=== PATIENT | female | born 1985 | race Caucasian/White ===

== ENCOUNTER 2016-07-20 11:17 | Emergency (ER) | payer MEDICAID ==
[2016-07-20] MEDS ORDERED: ONDANSETRON HCL INJ/PF 4 MG/2 ML SDV IV ONE (11:21)
[2016-07-20] MEDS ORDERED: MORPHINE SULFATE 10 MG/ML INJ IV ONE (11:21)
--- NOTE | 2016-07-20 11:25 | ER Document Report ---
ED Medical Screen (RME) - General Stated Complaint: ABDOMINAL PAIN Mode of Arrival: Wheelchair Information source: Patient Notes: pt reports RLQ abdominal pain since last night. Reports increased all night, denies vomiting /diarrhea. Last meal last night, drank water today. No fever. Very tender RLQ. Hurts when taking a deep breath. Hx of ovarian cyst. Reports some pain when she voids. Still has gallbladder and appendix. So reports rectal pressure. I have greeted and performed a rapid initial assessment of this patient. A comprehensive ED assessment and evaluation of the patient, analysis of test results and completion of the medical decision making process will be conducted by additional ED providers. TRAVEL OUTSIDE OF THE [place] IN LAST 30 DAYS: No - Related Data Allergies/Adverse Reactions: No Known Allergies Allergy (Verified 07/20/16 11:19) Past Medical History - Past Medical History Cardiac Medical History: Reports: Hx Heart Murmur Neurological Medical History: Reports: Hx Migraine - Immunizations Hx Diphtheria, Pertussis, Tetanus Vaccination: Yes
--- NOTE | 2016-07-20 11:38 | ER Document Report ---
ED GI/ - General Chief Complaint: Abdominal Pain Stated Complaint: ABDOMINAL PAIN Mode of Arrival: Wheelchair Notes: The patient is a 31-year-old female, past medical history ovarian cysts, presents with onset of right lower quadrant abdominal pain and right upper abdominal pain. She has never had this pain in the past. The pain is constant and described as sharp. She denies nausea, vomiting, urinary symptoms, fevers, diarrhea, constipation or vaginal discharge. TRAVEL OUTSIDE OF THE [place] IN LAST 30 DAYS: No - Related Data Allergies/Adverse Reactions: No Known Allergies Allergy (Verified 07/20/16 11:19) Past Medical History - General Information source: Patient - Social History Smoking Status: Current Every Day Smoker Chew tobacco use (# tins/day): No Frequency of alcohol use: None Drug Abuse: None Family History: Other - Grandmother: ulcers Patient has suicidal ideation: No Patient has homicidal ideation: No - Past Medical History Cardiac Medical History: Reports: Hx Heart Murmur Neurological Medical History: Reports: Hx Migraine Renal/ Medical History: Denies: Hx Peritoneal Dialysis - Immunizations Hx Diphtheria, Pertussis, Tetanus Vaccination: Yes Review of Systems - Review of Systems Notes: REVIEW OF SYSTEMS: CONSTITUTIONAL: -fevers, -chills EENT: -eye pain, -difficulty swallowing, -nasal congestion CARDIOVASCULAR:-chest pain, -syncope. RESPIRATORY: -cough, -SOB GASTROINTESTINAL: +abdominal pain, -nausea, -vomiting, -diarrhea GENITOURINARY: -dysuria, -hematuria MUSCULOSKELETAL: -back pain, -neck pain SKIN: -rash or skin lesions. HEMATOLOGIC: -easy bruising or bleeding. LYMPHATIC: -swollen, enlarged glands. NEUROLOGICAL: -altered mental status or loss of consciousness, -headache, - neurologic symptoms PSYCHIATRIC: -anxiety, -depression. ALL OTHER SYSTEMS REVIEWED AND NEGATIVE. Physical Exam - Vital signs Vitals: Resp Pulse Ox 25 H 100 07/20/16 11:56 07/20/16 11:56 - Notes Notes: PHYSICAL EXAMINATION: GENERAL: In moderate distress. HEAD: Atraumatic, normocephalic. EYES: Pupils equal round and reactive to light, extraocular movements intact, sclera anicteric, conjunctiva are normal. ENT: nares patent, oropharynx clear without exudates. Moist mucous membranes. NECK: Normal range of motion, supple without lymphadenopathy LUNGS: Breath sounds clear to auscultation bilaterally and equal. No wheezes rales or rhonchi. HEART: Regular rate and rhythm without murmurs ABDOMEN: Tenderness over RUQ and RLQ, +Cook's sign, +guarding : No vaginal discharge. No CMT. Nontender left and right adnexa and uterus. Tenderness above right adnexa. EXTREMITIES: Normal range of motion, no pitting or edema. No cyanosis. NEUROLOGICAL: Cranial nerves grossly intact. Normal speech, normal gait. Normal sensory, motor, and reflex exams. PSYCH: Normal mood, normal affect. SKIN: Warm, Dry, normal turgor, no rashes or lesions noted. Course - Re-evaluation Re-evalutation: Patient with tenderness and guarding over right upper quadrant and right lower quadrant. Will obtain ultrasound of gallbladder and right adnexa reason to assess for cholecystitis and ovarian torsion. If the ultrasounds are negative, will obtain CT to assess for appendicitis. 07/20/16 15:45 Pt with hemoperitoneum on CT scan, but normal appendix. Spoke to on-call Extractor Plant Operator (Dr. Lopez Martínez) and he says that this can be normal after ruptured hemorrhagic ovarian cyst. Since patient's blood pressure has remained stable, she is not tachycardic, and she is not , he says that patient is safe for discharge and outpatient follow-up with gynecology. Spoke to patient and mom about this and she is comfortable with plan. Given strict return precautions and she understands. - Vital Signs Vital signs: Temp Pulse Resp BP Pulse Ox 98.4 F 16 125/93 H 100 07/20/16 16:00 07/20/16 16:01 07/20/16 16:00 07/20/16 16:01 - Laboratory Result Diagrams: 07/20/16 13:51 07/20/16 12:15 Laboratory results interpreted by me: 07/20/16 07/20/16 12:15 13:51 WBC 14.7 H Absolute Neutrophils 9.6 H Calcium 10.3 H - Diagnostic Test Radiology reviewed: Image reviewed, Reports reviewed Radiology results interpreted by me: RUPantera US: IMPRESSION: FATTY INFILTRATION OF THE LIVER. OTHERWISE NORMAL RIGHT UPPER QUADRANT ULTRASOUND. Pelvic US: IMPRESSION: 1. Slightly prominent heterogeneous right ovary but no clear evidence of mass or torsion. Indeterminate etiology. Normal uterus and left ovary. Fluid in the pelvis as above. CT A/P: IMPRESSION: 1. Dense fluid in the bilateral lower pericolic gutters and pelvis. Likely hemoperitoneum. Reportedly, the patient has a negative test, and therefore ectopic ( normal a consideration in such cases) should not be responsible for the findings. This could still be related to hemorrhage from rupture of an ovarian cyst recently. Comparison pelvic ultrasound shows some enlargement of the right ovary but no worrisome mass. 2. No evidence of appendicitis, see above. Discharge - Discharge Clinical Impression: Ruptured ovarian cyst, Hemoperitoneum Condition: Good Disposition: HOME, SELF-CARE Additional Instructions: If you notice any worsening abdominal pain, feel lightheaded or have any other concerns, return immediately to the emergency room. You must follow-up with the irrigation equipment remover MIRIAM. Call for an appointment tomorrow. Take Motrin every 6 hours. Neon for severe pain. Do not drive while you are taking Neon. Eat a high-fiber diet and add a stool softener to help have normal bowel movements. Ovarian Cyst Your examination shows the presence of an ovarian cyst. This is a ball of fluid attached to the ovary. Ovarian cysts in women of child-bearing age are usually innocent. However, the cyst may cause pain when it grows or bursts. An innocent ovarian cyst will usually go away by itself. When the cyst becomes painful, you should rest. Pain medication may be required. Some women find a hot water bottle soothing. The pain usually resolves within one or two days. After menopause, an ovarian cyst may mean a tumor, and requires more aggressive evaluation -- usually surgery is recommended to remove or biopsy the cyst. A very large cyst requires evaluation at any age. Most cysts (even the innocent ones) require follow-up examination. Call the doctor or return at any time if the pain increases significantly, if you become faint, or if you experience vaginal bleeding. Prescriptions: Hydrocodone/Acetaminophen [Neon 5-325 mg Tablet] 1 tab PO Q6H PRN #12 tablet PRN Reason: Referrals: FARRUKH CHUNG DO [Primary Care Provider] - Follow up as needed DOUG MARTÍNEZ MD [ACTIVE STAFF] - Follow up as needed
[2016-07-20 12:47] LABS: ALANINE AMINOTRANSFERASE 30 U/L (9-52); ALBUMIN 4.4 g/dL (3.5-5.0); ALKALINE PHOSPHATASE 65 U/L (38-126); ANION GAP 12 (5-19); ASPARTATE AMINO TRANSFERASE 23 U/L (14-36); BILIRUBIN,TOTAL 0.5 mg/dL (0.2-1.3); BLOOD UREA NITROGEN 13 mg/dL (7-20); CALCIUM 10.3 mg/dL (8.4-10.2); CARBON DIOXIDE 23 mmol/L (22-30); CHLORIDE 105 mmol/L (98-107); CREATININE RESULT 0.81 mg/dL (0.52-1.25); GLUCOSE 86 mg/dL (75-110); LIPASE 76.2 U/L (23-300); POTASSIUM 4.8 mmol/L (3.6-5.0); SODIUM 140.2 mmol/L (137-145); TOTAL PROTEIN 7.6 g/dL (6.3-8.2)
[2016-07-20 12:51] LABS: APPEARANCE,URINE CLEAR; BILIRUBIN,URINE NEGATIVE (NEGATIVE); GLUCOSE, URINE NEGATIVE (NEGATIVE); KETONES,URINE NEGATIVE (NEGATIVE); LEUKOCYTE ESTERASE,URINE NEGATIVE (NEGATIVE); NITRITE,URINE NEGATIVE (NEGATIVE); PROTEIN,URINE NEGATIVE (NEGATIVE); URINE SPECIFIC GRAVITY 1.008; UROBILINOGEN,URINE NEGATIVE mg/dL (<2.0)
[2016-07-20] MEDS ORDERED: MORPHINE SULFATE 10 MG/ML INJ IM ONE ×2 (13:08)
[2016-07-20] MEDS ORDERED: ONDANSETRON 4 MG TAB.RAPDIS PO ONE (13:10)
[2016-07-20 14:00] LABS: ABSOLUTE BASOPHILS # (AUTO) 0.1 10^3/uL (0.0-0.2); ABSOLUTE EOSINOPHILS # (AUTO) 0.2 10^3/uL (0.0-0.6); ABSOLUTE LYMPHOCYTES (AUTO) 3.9 10^3/uL (0.5-4.7); ABSOLUTE MONOCYTES (AUTO) 0.9 10^3/uL (0.1-1.4); ABSOLUTE NEUT (AUTO) 9.6 10^3/uL (1.7-8.2); BASOPHILS % (AUTO) 0.8 % (0-2); EOSINOPHILS % (AUTO) 1.1 % (0-6); HEMATOCRIT 38.7 % (36.0-47.0); HEMOGLOBIN 13.2 g/dL (12.0-15.5); HGB HCT DIFFERENCE 0.9; LYMPHOCYTES % (AUTO) 26.7 % (13-45); MEAN CORPUSCULAR HEMOGLOBIN 30.2 pg (27.0-33.4); MEAN CORPUSCULAR VOLUME 89 fl (80-97); MONOCYTES % (AUTO) 6.1 % (3-13); RED BLOOD COUNT 4.37 10^6/uL (3.72-5.28); RED CELL DISTRIBUTION WIDTH 13.3 % (11.5-14.0); SEGMENTED NEUTROPHILS % (AUTO) 65.3 % (42-78); WHITE BLOOD COUNT 14.7 10^3/uL (4.0-10.5)
[2016-07-20] MEDS ORDERED: HYDROCODONE/ACETAMINOPHEN 5-325 MG TABLET PO ONE (15:44)
[2016-07-20] MEDS ORDERED: IBUPROFEN 600 MG TABLET PO ONE (15:44)
[2016-07-20 15:51] LABS: CHLAM PCR NOT DETECTED (NOT DETECT)
[2016-07-20 16:13] VITALS: BP 125/93
== END 2016-07-20 16:14 | disposition home or self-care (01) ==
LOC: ER 11:17
DX: N83.201 Unspecified ovarian cyst, right side (principal); K66.1 Hemoperitoneum; R10.32 Left lower quadrant pain; F17.200 Nicotine dependence, unspecified, uncomplicated
CPT/HCPCS: 99284; 96372; 36415; 87086; 87210; 83690; 84703; 85025; 81025; 80053; 81001; 87491; 87591; 76705; 76830; 93976; 74150; S0119; J3490; J2270

== ENCOUNTER 2016-09-26 19:43 | Emergency (ER) | payer MEDICAID ==
[2016-09-26] MEDS ORDERED: MAGNESIUM SULFATE/D5W 100 ML IV PRN (21:12)
[2016-09-26] MEDS ORDERED: METHYLPREDNISOLONE INJ 125 MG/2 ML SDV IV ONE (21:12)
[2016-09-26] MEDS ORDERED: IPRATROPIUM/ALBUTEROL 0.5-2.5 MG/3 ML AMPUL NEB ONE ×2 (21:13)
[2016-09-26] MEDS ORDERED: HYDROCODONE/ACETAMINOPHEN 5-325 MG TABLET PO ONE (21:14)
[2016-09-26] MEDS ORDERED: NORMAL SALINE 1000 ML 1,000 ML IV ONE (21:14)
--- NOTE | 2016-09-26 21:16 | ER Document Report ---
ED Respiratory Problem - General Chief Complaint: Cough Stated Complaint: COUGH Time Seen by Provider: 09/26/16 21:06 Notes: Patient is a 31-year-old female smoker that comes emergency department for chief complaint of one week of worsening upper respiratory symptoms, she states she has developed a congested cough and now has difficulty breathing with wheezing. She was referred to the emergency department by urgent care after she had 2 albuterol treatments and was still wheezing on examination reportedly. Patient denies fever, reports some chills. She denies history of asthma, COPD, she denies any daily medications. TRAVEL OUTSIDE OF THE [place] IN LAST 30 DAYS: No - Related Data Allergies/Adverse Reactions: No Known Allergies Allergy (Verified 09/17/16 13:28) Past Medical History - General Information source: Patient - Social History Smoking Status: Current Every Day Smoker Smoking Education Provided: Yes - <3 min Frequency of alcohol use: None Drug Abuse: None Lives with: Family Family History: Reviewed & Not Pertinent, Other - Grandmother: ulcers Patient has suicidal ideation: No Patient has homicidal ideation: No - Past Medical History Cardiac Medical History: Reports: Hx Heart Murmur Denies: Hx Coronary Artery Disease, Hx Heart Attack, Hx Hypertension Pulmonary Medical History: Denies: Hx Asthma, Hx Bronchitis, Hx COPD, Hx Pneumonia Neurological Medical History: Reports: Hx Migraine. Denies: Hx Cerebrovascular Accident, Hx Seizures Renal/ Medical History: Denies: Hx Peritoneal Dialysis Musculoskeltal Medical History: Denies Hx Arthritis Surgical Hx: Negative - Immunizations Hx Diphtheria, Pertussis, Tetanus Vaccination: Yes Review of Systems - Review of Systems Constitutional: No symptoms reported EENT: See HPI Cardiovascular: No symptoms reported Respiratory: See HPI Gastrointestinal: No symptoms reported Genitourinary: No symptoms reported Female Genitourinary: No symptoms reported Musculoskeletal: No symptoms reported Skin: No symptoms reported Hematologic/Lymphatic: No symptoms reported Neurological/Psychological: No symptoms reported Physical Exam - Vital signs Vitals: Temp Pulse Resp BP Pulse Ox 98.1 F 113 H 20 134/70 H 98 09/26/16 19:51 09/26/16 19:51 09/26/16 19:51 09/26/16 19:51 09/26/16 19:51 Interpretation: Normal - General General appearance: Anxious In distress: None - HEENT Head: Normocephalic, Atraumatic Eyes: Normal Conjunctiva: Normal Extraocular movements intact: Yes Eyelashes: Normal Pupils: PERRL Ears: Normal External canal: Normal Tympanic membrane: Other - Purulent effusion noted with examination of the left TM, serous effusion noted with the right TM, otherwise unremarkable Sinus: Normal Nasal: Normal Mouth/Lips: Normal Mucous membranes: Normal Pharynx: Normal Neck: Normal - Respiratory Respiratory status: No respiratory distress, Tachypnea - Borderline Chest status: Nontender Breath sounds: Decreased air movement, Nonproductive cough, Rhonchi, Wheezing - Cardiovascular Rhythm: Regular, Tachycardia Heart sounds: Normal auscultation, S1 appreciated, S2 appreciated Murmur: No - Abdominal Inspection: Normal Distension: No distension Bowel sounds: Normal Tenderness: Nontender. No: Tender, Guarding Organomegaly: No organomegaly - Back Back: Normal, Nontender - Extremities General upper extremity: Normal inspection, Nontender, Normal color, Normal ROM , Normal temperature General lower extremity: Normal inspection, Nontender, Normal color, Normal ROM , Normal temperature, Normal weight bearing. No: Lorrie's sign - Neurological Neuro grossly intact: Yes Cognition: Normal Orientation: AAOx4 [place] Coma Scale Eye Opening: Spontaneous Heri Coma Scale Verbal: Oriented [place] Coma Scale Motor: Obeys Commands Heri Coma Scale Total: 15 Speech: Normal Motor strength normal: LUE, RUE, LLE, RLE Sensory: Normal - Psychological Associated symptoms: Anxious - Skin Skin Temperature: Warm Skin Moisture: Dry Skin Color: Normal Course - Re-evaluation Re-evalutation: On examination patient has expiratory wheezes and rhonchi throughout all lung atkins, mild tachypnea but no hypoxia, she can complete sentences, she appears slightly anxious but does not appear to be in distress. Mild leukocytosis with no shift, chest x-ray does not show pneumonia, no acidosis on chemistry 09/27/16 After magnesium, Solu-Medrol, IV fluids, [place], patient significantly improved, wheezing resolved, still has some congestion/cough. Patient states she feels much better. On examination patient also has an ear infection in the left middle ear, we will treat with amoxicillin. Provided with inhaler, prednisone, amoxicillin, [place], discussed smoking cessation, patient states that after this she plans to never smoke again. Discussed follow-up and return precautions, patient states understanding and agreement. - Vital Signs Vital signs: Temp Pulse Resp BP Pulse Ox 98.3 F 90 16 101/54 L 99 09/27/16 00:04 09/27/16 00:04 09/27/16 00:04 09/27/16 00:04 09/27/16 00:04 - Laboratory Result Diagrams: 09/26/16 22:05 09/26/16 22:05 Laboratory results interpreted by me: 09/26/16 22:05 WBC 13.2 H Discharge - Discharge Clinical Impression: Cough, Wheezing Upper respiratory infection Qualifiers: URI type: unspecified URI Qualified Code(s): J06.9 - Acute upper respiratory infection, unspecified Otitis media Qualifiers: Otitis media type: suppurative Laterality: left Chronicity: acute Recurrence: not specified as recurrent Spontaneous tympanic membrane rupture: without spontaneous rupture Qualified Code(s): H66.002 - Acute suppurative otitis media without spontaneous rupture of ear drum, left ear Condition: Stable Disposition: HOME, SELF-CARE Additional Instructions: Chest x-ray does not show pneumonia, examination is consistent with upper respiratory infection/bronchitis and also a left-sided ear infection. Take the amoxicillin antibiotic as directed, take prednisone as prescribed, use the albuterol inhaler if needed, stop smoking. Take the [place] if needed for cough. Follow-up with primary care. Return to emergency department for any concerning or worsening symptoms. Prescriptions: Albuterol Sulfate [Proair HFA Inhalation Aerosol 8.5 gm MDI] 2 puff IH Q4H PRN # 1 mdi PRN Reason: Amoxicillin Trihydrate [Amoxil 875 mg Tablet] 1 tab PO BID #20 tablet Hydrocodone/Acetaminophen [[place] 5-325 mg Tablet] 1 - 2 tab PO ASDIR #10 tablet Prednisone [Deltasone 20 mg Tablet] 3 tab PO DAILY 5 Days
[2016-09-26 22:19] LABS: ABSOLUTE BASOPHILS # (AUTO) 0.1 10^3/uL (0.0-0.2); ABSOLUTE EOSINOPHILS # (AUTO) 0.3 10^3/uL (0.0-0.6); ABSOLUTE LYMPHOCYTES (AUTO) 4.2 10^3/uL (0.5-4.7); ABSOLUTE MONOCYTES (AUTO) 0.8 10^3/uL (0.1-1.4); ABSOLUTE NEUT (AUTO) 7.8 10^3/uL (1.7-8.2); BASOPHILS % (AUTO) 1.1 % (0-2); EOSINOPHILS % (AUTO) 2.4 % (0-6); HEMATOCRIT 41.3 % (36.0-47.0); HEMOGLOBIN 13.5 g/dL (12.0-15.5); HGB HCT DIFFERENCE -0.8; LYMPHOCYTES % (AUTO) 31.9 % (13-45); MEAN CORPUSCULAR HGB CONC 32.7 g/dL (32.0-36.0); MEAN CORPUSCULAR VOLUME 89 fl (80-97); MONOCYTES % (AUTO) 5.8 % (3-13); RED BLOOD COUNT 4.66 10^6/uL (3.72-5.28); SEGMENTED NEUTROPHILS % (AUTO) 58.8 % (42-78); WHITE BLOOD COUNT 13.2 10^3/uL (4.0-10.5)
[2016-09-26 22:35] LABS: ANION GAP 15 (5-19); BLOOD UREA NITROGEN 10 mg/dL (7-20); CALCIUM 10.2 mg/dL (8.4-10.2); CARBON DIOXIDE 25 mmol/L (22-30); CHLORIDE 100 mmol/L (98-107); GLUCOSE 105 mg/dL (75-110); POTASSIUM 4.7 mmol/L (3.6-5.0); SODIUM 140.1 mmol/L (137-145)
[2016-09-26] MEDS ORDERED: ALBUTEROL SULFATE HFA (90 MCG/PUFF) 8 GM MDI (1 MDI/ER DISP) IH ONE (23:50)
[2016-09-26] MEDS ORDERED: HYDROCODONE/ACETAMINOPHEN 5-325 MG 6 TAB/DSPK PO PRN (23:50)
[2016-09-27 00:08] VITALS: BP 101/54
== END 2016-09-27 00:09 | disposition home or self-care (01) ==
LOC: ER 19:43
DX: J06.9 Acute upper respiratory infection, unspecified (principal); H66.002 Acute suppurative otitis media without spontaneous rupture of ear drum, left ear; R05 Cough; R06.2 Wheezing; F17.210 Nicotine dependence, cigarettes, uncomplicated
CPT/HCPCS: 94640 ×2; 99283; 96361; 96375; 96365; 36415; 84703; 85025; 80048; 71020; J2930; J3475; J7030; J3490; J7620

== ENCOUNTER 2016-11-27 09:43 | Day surgery (SDC) | payer MEDICAID ==
[2016-11-25 12:10] LABS: HEMATOCRIT 41.9 % (36.0-47.0); HEMOGLOBIN 14.1 g/dL (12.0-15.5); HGB HCT DIFFERENCE 0.4; MEAN CORPUSCULAR HEMOGLOBIN 29.9 pg (27.0-33.4); MEAN CORPUSCULAR HGB CONC 33.7 g/dL (32.0-36.0); MEAN CORPUSCULAR VOLUME 89 fl (80-97); RED BLOOD COUNT 4.73 10^6/uL (3.72-5.28); RED CELL DISTRIBUTION WIDTH 13.6 % (11.5-14.0); WHITE BLOOD COUNT 9.3 10^3/uL (4.0-10.5)
[~2016-11-27 09:43] MED LIST: GLYCOPYRROLATE INJ 0.4 MG/2 ML VIAL ONE; KETOROLAC TROMETHAMINE 60 MG/2 ML SDV ONE; LACTATED RINGERS 1000 ML IV PRN; LIDOCAINE 2% INJ-PF (20 MG/ML) 10 ML AMPUL ONE; METOCLOPRAMIDE HCL INJ/PF 10 MG/2 ML SDV ONE; NEOSTIGMINE METHYLSULFATE 10 MG/10 ML VIAL ONE; ONDANSETRON HCL INJ/PF 4 MG/2 ML SDV ONE; ROCURONIUM BROMIDE INJ 50 MG/5 ML VIAL IV ONE; SUCCINYLCHOLINE CHLORIDE INJ 200 MG/10 ML VIAL ONE
[2016-11-27] MEDS ORDERED: ALBUTEROL SULFATE 0.083% NEB 2.5 MG/3 ML AMPUL NEB ONE (10:40)
[2016-11-27] MEDS ORDERED: SCOPOLAMINE HYDROBROMIDE 1.5 MG PATCH.TD72 ONE (11:03)
[2016-11-27] MEDS ORDERED: FENTANYL CITRATE INJ/PF 100 MCG/2 ML AMPUL ONE (11:18)
[2016-11-27] MEDS ORDERED: ACETAMINOPHEN 100 ML IV ONE (11:19)
[2016-11-27] MEDS ORDERED: PROPOFOL INJ 200 MG/20 ML VIAL IV ONE (11:19)
[2016-11-27] MEDS ORDERED: DEXMEDETOMIDINE INJ 80 MCG/20 ML VIAL IV ONE (11:19)
[2016-11-27] MEDS ORDERED: MIDAZOLAM 2 MG/2 ML INJ ONE (11:19)
[2016-11-27] MEDS ORDERED: EPHEDRINE SULFATE INJ 50 MG/1 ML AMPULE ONE (11:19)
[2016-11-27] MEDS ORDERED: ONDANSETRON HCL INJ/PF 4 MG/2 ML SDV IV PRN (11:55)
[2016-11-27] MEDS ORDERED: DIPHENHYDRAMINE HCL 50 MG/ML VIAL IV PRN (11:55)
[2016-11-27] MEDS ORDERED: FENTANYL CITRATE INJ/PF 100 MCG/2 ML AMPUL IV PRN ×3 (11:55)
[2016-11-27] MEDS ORDERED: PROMETHAZINE HCL INJ 25 MG/1 ML VIAL IV PRN ×2 (11:55)
[2016-11-27] MEDS ORDERED: MORPHINE SULFATE 10 MG/ML INJ IV PRN (11:55)
[2016-11-27] MEDS ORDERED: MEPERIDINE HCL/PF INJ 25 MG/1 ML DISP.SYRIN IV PRN (11:55)
--- NOTE | 2016-11-27 12:49 | Operative Report ---
Operative Report DATE OF SURGERY: 11/27/16 PREOPERATIVE DIAGNOSIS: Pelvic pain POSTOPERATIVE DIAGNOSIS: Endometriosis with adhesions and endometrioma at the right ovary OPERATION: Diagnostic laparoscopy lysis of adhesions freeing up the right ovary removal of endometrioma on right ovary cautery of endometriosis SURGEON: DOUG LALA ANESTHESIA: GA TISSUE REMOVED OR ALTERED: Endometriosis and endometrioma at the right ovary COMPLICATIONS: None ESTIMATED BLOOD LOSS: 10 cc INTRAOPERATIVE FINDINGS: The patient had a normal left ovary she had a stuck right ovary with filmy adhesions and endometriosis and a small endometrioma. PROCEDURE: The patient was taken back to the OR and placed in supine position. General anesthesia was induced. She was placed in dorsolithotomy position using Ron stirrups. Her perineum vagina and abdomen were prepared and draped in sterile fashion. Bladder was emptied with a catheter. A sponge stick was placed in the vagina for manipulation the uterus. She did ask me to inspect for a small skin tag which appears to be hymeneal remnant which protrudes slightly of the vagina. An incision was made at the umbilicus and the natural umbilical defect identified and dilated with a Ann clamp. Allow the placement of a blunt port. Laparoscopy confirmed appropriate placement. The abdomen was insufflated with CO2 gas. View of the pelvis was very good. A suprapubic incision was made in a port placed under laparoscopic visualization. A lateral port was placed on the left side lateral to the inferior epigastric vessels. This was done under laparoscopic visualization as well. The left ovary was normal the right ovary was stuck in the cul-de-sac with filmy adhesions. Apparent endometriosis around the right ovary in the cul-de-sac. Using the harmonic scalpel the filmy adhesions were lysed freeing up the ovary. After freeing up the ovary there was an endometrioma at the tip of the right ovary and this was removed with the harmonic scalpel as well. Cautery was used to achieve hemostasis. The pelvis was then irrigated and the fluid aspirated. No active bleeding. The ports were removed under laparoscopic visualization. The gas was allowed to escape from the abdomen and the umbilical port and scope were removed in unison. The fascia at the umbilicus was closed with a 2-0 Vicryl stitch and 3 port sites closed with 4-0 undyed Vicryl stitch. The wounds were dressed all instruments removed from the vagina. I would recommend a course of Lupron to help get rid of the smaller areas of endometriosis.
[2016-11-27] MEDS ORDERED: OXYCODONE-ACETAMINOPHEN 5-325 MG TABLET PO PRN ×2 (13:18→13:19)
[2016-11-27] MEDS ORDERED: KETOROLAC TROMETHAMINE INJ/PF 30 MG/1 ML SDV IM PRN (13:18)
[2016-11-27] MEDS ORDERED: IBUPROFEN 800 MG TABLET PO PRN (13:19)
[2016-11-27 15:08] VITALS: BP 111/71
== END 2016-11-27 15:15 | disposition home or self-care (01) ==
LOC: OROUT 09:43
PROVIDERS: ATTEND Obstetrics & Gynecology
PROC: 0UB04ZZ Excision of Right Ovary, Percutaneous Endoscopic Approach (ICD-10-PCS; 2016-11-27)
PROC: 0UN04ZZ Release Right Ovary, Percutaneous Endoscopic Approach (ICD-10-PCS; principal; 2016-11-27 11:30)
DX: N80.1 Endometriosis of ovary (principal); N73.6 Female pelvic peritoneal adhesions (postinfective); E11.9 Type 2 diabetes mellitus without complications; F17.210 Nicotine dependence, cigarettes, uncomplicated; Z79.84 Long term (current) use of oral hypoglycemic drugs; Z79.899 Other long term (current) drug therapy
CPT/HCPCS: 36415; 82962; 85027; 81025; 88305 ×2; 58662; J2250; J3490 ×5; J1885 ×2; J3010; J2765; J0330; J2405; J2704; J0131; 840

== ENCOUNTER 2017-08-10 21:50 | Emergency (ER) | payer MEDICAID ==
[2017-08-11 00:34] LABS: ABSOLUTE BASOPHILS # (AUTO) 0.1 10^3/uL (0.0-0.2); ABSOLUTE EOSINOPHILS # (AUTO) 0.6 10^3/uL (0.0-0.6); ABSOLUTE MONOCYTES (AUTO) 0.7 10^3/uL (0.1-1.4); BASOPHILS % (AUTO) 1.1 % (0-2); EOSINOPHILS % (AUTO) 5.8 % (0-6); HEMOGLOBIN 13.3 g/dL (12.0-15.5); LYMPHOCYTES % (AUTO) 48.4 % (13-45); MEAN CORPUSCULAR HGB CONC 34.1 g/dL (32.0-36.0); MEAN CORPUSCULAR VOLUME 88 fl (80-97); MONOCYTES % (AUTO) 6.3 % (3-13); PLATELET COUNT 334 10^3/uL (150-450); RED BLOOD COUNT 4.44 10^6/uL (3.72-5.28); RED CELL DISTRIBUTION WIDTH 13.4 % (11.5-14.0); SEGMENTED NEUTROPHILS % (AUTO) 38.4 % (42-78); TOTAL CELLS COUNTED % (AUTO) 100 %; WHITE BLOOD COUNT 10.4 10^3/uL (4.0-10.5)
[2017-08-11 00:39] LABS: APPEARANCE,URINE SLIGHTLY-CLOUDY; BILIRUBIN,URINE NEGATIVE (NEGATIVE); COLOR,URINE STRAW; GLUCOSE, URINE NEGATIVE (NEGATIVE); KETONES,URINE NEGATIVE (NEGATIVE); LEUKOCYTE ESTERASE,URINE SMALL (NEGATIVE); NITRITE,URINE NEGATIVE (NEGATIVE); PROTEIN,URINE NEGATIVE (NEGATIVE); URINE SPECIFIC GRAVITY 1.008; UROBILINOGEN,URINE NEGATIVE mg/dL (<2.0)
--- NOTE | 2017-08-11 00:49 | ER Document Report ---
ED General - General Chief Complaint: Abdominal Pain Stated Complaint: ABDOMINAL PAIN Time Seen by Provider: 08/11/17 00:17 Notes: Patient is a 32-year-old female with a past medical history of chronic lower abdominal pain secondary to endometriosis, recently completed a course of Lupron although she did only take it for 2 months who presents with 1 week of progressively worsening lower abdominal pain. She describes this as a constant , stabbing pain to her left lower abdomen. States this feels exactly the same as when she had problems with endometriosis in the past. Nothing improves or worsens that pain. She denies any associated fever, vaginal discharge, vaginal bleeding or dysuria. She notes that she the pain has been so severe that has made her vomit. She has a scheduled follow-up appointment with Dr. Martínez with whom she has been following for this issue on Thursday but states the pain got to a point tonight that she could not tolerate any longer and so she came to the emergency department. TRAVEL OUTSIDE OF THE [place] IN LAST 30 DAYS: No - Related Data Allergies/Adverse Reactions: No Known Allergies Allergy (Verified 11/25/16 11:15) Past Medical History - General Information source: Patient - Social History Smoking Status: Current Every Day Smoker Chew tobacco use (# tins/day): No Frequency of alcohol use: None Drug Abuse: None Lives with: Spouse/Significant other Family History: Reviewed & Not Pertinent, Other Patient has suicidal ideation: No Patient has homicidal ideation: No - Past Medical History Cardiac Medical History: Reports: Hx Heart Murmur Denies: Hx Coronary Artery Disease, Hx Heart Attack, Hx Hypertension Pulmonary Medical History: Denies: Hx Asthma, Hx Bronchitis, Hx COPD, Hx Pneumonia Neurological Medical History: Reports: Hx Migraine. Denies: Hx Cerebrovascular Accident, Hx Seizures Renal/ Medical History: Denies: Hx Peritoneal Dialysis Musculoskeltal Medical History: Denies Hx Arthritis - Immunizations Hx Diphtheria, Pertussis, Tetanus Vaccination: Yes Review of Systems - Review of Systems Notes: Constitutional: Negative for fever. HENT: Negative for sore throat. Eyes: Negative for visual changes. Cardiovascular: Negative for chest pain. Respiratory: Negative for shortness of breath. Gastrointestinal: Positive for abdominal pain Genitourinary: Negative for dysuria. Musculoskeletal: Negative for back pain. Skin: Negative for rash. Neurological: Negative for headaches, weakness or numbness. 10 point ROS negative except as marked above and in HPI. Physical Exam - Vital signs Vitals: Temp Pulse Resp BP Pulse Ox 98.6 F 105 H 16 145/81 H 99 08/10/17 21:50 08/10/17 21:50 08/10/17 21:50 08/10/17 21:50 08/10/17 21:50 Interpretation: Hypertensive, Tachycardic Notes: PHYSICAL EXAMINATION: GENERAL: Appears moderately uncomfortable but in no acute distress HEAD: Atraumatic, normocephalic. EYES: Pupils equal round and reactive to light, extraocular movements intact, sclera anicteric, conjunctiva are normal. ENT: nares patent, oropharynx clear without exudates. Moderately dry mucous membranes. NECK: Normal range of motion, supple without lymphadenopathy LUNGS: Breath sounds clear to auscultation bilaterally and equal. No wheezes rales or rhonchi. HEART: Regular rate and rhythm without murmurs ABDOMEN: Soft, focal tenderness to the left adnexa no other localized areas of tenderness, normoactive bowel sounds. No guarding, no rebound. No masses appreciated. EXTREMITIES: Normal range of motion, no pitting or edema. No cyanosis. NEUROLOGICAL: No focal neurological deficits. Moves all extremities spontaneously and on command. PSYCH: Anxious SKIN: Warm, Dry, normal turgor, no rashes or lesions noted. Course - Re-evaluation Re-evalutation: 08/11/17 00:56 Patient presents with 4 days of left adnexal abdominal pain with associated nausea and vomiting. States this feels very similar to when she has had endometriosis in the past and she was on Lupron therapy until recently and upon discontinuation her symptoms seem to have recurred. It seems as though the patient may be having a recurrence of her pain associated with endometriosis. Her abdominal exam is overall benign but she does have some focal left adnexal tenderness. No rebound or guarding. Vitals otherwise within normal limits. Will obtain a transvaginal ultrasound to further evaluate for TOA or ovarian torsion for which have a low clinical suspicion, provide pain and nausea control and reassess the patient. 08/11/17 03:18 Transvaginal ultrasound overall unremarkable. Patient's pain is improved. Labs unremarkable. I do suspect that this is ongoing pain from patient's underlying endometriosis. She has scheduled follow-up with CASKET TRIMMER in 2 days. I have asked that she complete this follow-up as scheduled. At this time will discharge with return precautions and follow-up recommendations. Verbal discharge instructions given a the bedside and opportunity for questions given. Medication warnings reviewed. Patient is in agreement with this plan and has verbalized understanding of return precautions and the need for [facility] [employer]MER follow- up. - Vital Signs Vital signs: Temp Pulse Resp BP Pulse Ox 98.6 F 105 H 16 145/81 H 99 08/10/17 21:50 08/10/17 21:50 08/10/17 21:50 08/10/17 21:50 08/10/17 21:50 - Laboratory Result Diagrams: 08/11/17 00:20 08/11/17 00:20 Laboratory results interpreted by me: 08/11/17 08/11/17 08/11/17 00:20 00:20 00:25 Seg Neutrophils % 38.4 L Lymphocytes % 48.4 H Absolute Lymphocytes 5.0 H Calcium 10.7 H ALT 54 H Ur Leukocyte Esterase SMALL H Urine Ascorbic Acid 20 H - Diagnostic Test Radiology reviewed: Reports reviewed Discharge - Discharge Clinical Impression: Lower abdominal pain, Endometriosis Nausea and vomiting Qualifiers: Vomiting type: unspecified Vomiting Intractability: non-intractable Qualified Code(s): R11.2 - Nausea with vomiting, unspecified Condition: Good Disposition: HOME, SELF-CARE Additional Instructions: Please follow-up with Dr. Martínez as scheduled. Labs are reassuring today. Your ultrasound does not show any acute process. Your symptoms are likely secondary to endometriosis of which you have a history. For your pain: Take ibuprofen 600 mg and acetaminophen 1000 mg every 6 hours together as needed for pain. If this does not control your pain you may take 15 mg of oral morphine every 4 hours as needed. Please be very careful about using the oral morphine and only use this for severe pain. Return if you develop fever, persistent vomiting, worsening pain, or any other symptoms that are worrisome to you. Prescriptions: Morphine Sulfate [Morphine Ir 15 mg Tablet] 15 mg PO Q4HP PRN #6 tablet PRN Reason: Referrals: DOUG MARTÍNEZ MD [ACTIVE STAFF] - Follow up in 3-5 days
[2017-08-11] MEDS ORDERED: ONDANSETRON HCL INJ/PF 4 MG/2 ML SDV IV ONE (00:57)
[2017-08-11] MEDS ORDERED: KETOROLAC TROMETHAMINE INJ/PF 30 MG/1 ML SDV IV ONE (00:57)
[2017-08-11] MEDS ORDERED: NORMAL SALINE 1000 ML 1,000 ML IV ONE (00:57)
[2017-08-11 00:58] LABS: ALANINE AMINOTRANSFERASE 54 U/L (9-52); ALBUMIN 4.7 g/dL (3.5-5.0); ALKALINE PHOSPHATASE 60 U/L (38-126); ANION GAP 11 (5-19); ASPARTATE AMINO TRANSFERASE 35 U/L (14-36); BILIRUBIN,DIRECT 0.1 mg/dL (0.0-0.4); BILIRUBIN,TOTAL 0.2 mg/dL (0.2-1.3); BLOOD UREA NITROGEN 12 mg/dL (7-20); CALCIUM 10.7 mg/dL (8.4-10.2); CARBON DIOXIDE 30 mmol/L (22-30); CHLORIDE 100 mmol/L (98-107); GLUCOSE 81 mg/dL (75-110); LIPASE 70.6 U/L (23-300); SODIUM 140.6 mmol/L (137-145); TOTAL PROTEIN 7.4 g/dL (6.3-8.2)
[2017-08-11] MEDS ORDERED: HALOPERIDOL LACTATE INJ 5 MG/1 ML VIAL IV ONE (02:34)
[2017-08-11] MEDS ORDERED: MORPHINE SULFATE 10 MG/ML INJ IV PRN (02:35)
--- NOTE | 2017-08-11 03:14 | RADIOLOGY REPORT (SQ) ---
EXAM DESCRIPTION: U/S NON OB PEL TV W/DOPPLER CLINICAL HISTORY: 32 years Female, left adnexal pain COMPARISON: 07/20/2016 TECHNIQUE: Complete pelvic ultrasound with transvaginal and transabdominal imaging. Less menstrual period 6 months ago. Patient is on Lupron. FINDINGS: The uterus measures 6.9 x 4.4 x 3.8 cm. Endometrial thickness of 0.5 cm. Cervical length of 2.2 cm. Close. No myometrial abnormalities. The right ovary measures 3.3 x 3.0 x 2.0 cm. Limited color and spectral Doppler imaging demonstrates flow within the right ovary. The left ovary is not identified due to overlying bowel gas. No large left adnexal mass. No free pelvic fluid identified. IMPRESSION: 1. No sonographic abnormality identified in the pelvis. Left ovary not identified. No large left adnexal mass.
[2017-08-11 04:02] VITALS: BP 105/51
== END 2017-08-11 04:05 | disposition home or self-care (01) ==
LOC: ER 21:50
DX: N80.9 Endometriosis, unspecified (principal); R10.2 Pelvic and perineal pain; R11.2 Nausea with vomiting, unspecified; F17.200 Nicotine dependence, unspecified, uncomplicated
CPT/HCPCS: 99284; 96361; 96374; 96375; 36415; 83690; 84703; 85025; 80053; 81001; 76830; 93976; J1885; J2270; J2405; J7030

== ENCOUNTER 2017-12-24 01:57 | Emergency (ER) | payer MEDICAID ==
--- NOTE | 2017-12-24 02:56 | RADIOLOGY REPORT (SQ) ---
EXAM DESCRIPTION: XR TOES 2 OR MORE VIEWS COMPLETED DATE/TME: 12/24/2017 00:00 CLINICAL HISTORY: 32 years Female, Injured toe, pulled nailup/off COMPARISON: None. Findings: Known soft tissue injury; no radioopaque foreign body. Bones, joints, and soft tissues of the XR TOES 3 VIEWS appear otherwise intact. IMPRESSION: Soft tissue injury; else, no acute findings. .
[2017-12-24] MEDS ORDERED: BUPIVACAINE HCL 0.5 % INJ/PF 30 ML SDV INJ ONE (03:08)
[2017-12-24] MEDS ORDERED: OXYCODONE-ACETAMINOPHEN 5-325 MG TABLET PO ONE (03:09)
[2017-12-24] MEDS ORDERED: LIDOCAINE 1% INJ-PF (10 MG/ML) 30 ML SDV INJ ONE (03:09)
--- NOTE | 2017-12-24 03:10 | ER Document Report ---
ED Extremity Problem, Lower - General Chief Complaint: Toe Injury Stated Complaint: TOE INJURY Time Seen by Provider: 12/24/17 02:56 Notes: Patient is a 32-year-old female who comes emergency department for chief complaint of injury to her right toe, foot, and toenail. She states that she was moving a dresser when the dresser collided with her foot, causing the toenail to partially come off and the toe to bleed, she also reports swelling to the top of her foot. Tetanus is up-to-date within 5 years. She is not on any blood thinners. She denies any other injuries. TRAVEL OUTSIDE OF THE [place] IN LAST 30 DAYS: No - Related Data Allergies/Adverse Reactions: No Known Allergies Allergy (Verified 11/25/16 11:15) Past Medical History - General Information source: Patient - Social History Smoking Status: Never Smoker Frequency of alcohol use: None Drug Abuse: None Lives with: Family Family History: Reviewed & Not Pertinent, Other Patient has suicidal ideation: No Patient has homicidal ideation: No - Past Medical History Cardiac Medical History: Reports: Hx Heart Murmur Denies: Hx Coronary Artery Disease, Hx Heart Attack, Hx Hypertension Pulmonary Medical History: Denies: Hx Asthma, Hx Bronchitis, Hx COPD, Hx Pneumonia Neurological Medical History: Reports: Hx Migraine. Denies: Hx Cerebrovascular Accident, Hx Seizures Renal/ Medical History: Denies: Hx Peritoneal Dialysis Musculoskeletal Medical History: Denies Hx Arthritis - Immunizations Hx Diphtheria, Pertussis, Tetanus Vaccination: Yes Review of Systems - Review of Systems Constitutional: No symptoms reported EENT: No symptoms reported Cardiovascular: No symptoms reported Respiratory: No symptoms reported Gastrointestinal: No symptoms reported Genitourinary: No symptoms reported Female Genitourinary: No symptoms reported Musculoskeletal: See HPI Skin: See HPI Hematologic/Lymphatic: No symptoms reported Neurological/Psychological: No symptoms reported Physical Exam - Vital signs Vitals: Temp Pulse Resp BP Pulse Ox 99.0 F 116 H 20 139/79 H 100 12/24/17 02:02 12/24/17 02:02 12/24/17 02:02 12/24/17 02:02 12/24/17 02:02 - Notes Notes: GENERAL: Alert, interacts well. Anxious but not in distress. HEAD: Normocephalic, atraumatic. EYES: Pupils equal, round, and reactive to light. Extraocular movements intact. ENT: Oral mucosa moist, tongue midline. NECK: Full range of motion. Supple. Trachea midline. LUNGS: Clear to auscultation bilaterally, no wheezes, rales, or rhonchi. No respiratory distress. HEART: Regular rate and rhythm. No murmur ABDOMEN: Soft, non-tender. Non-distended. Bowel sounds present in all 4 quadrants. EXTREMITIES: Right great toe with nail partially removed from under the cuticle , slightly elevated above the nailbed, there is some bleeding. No laceration noted to the nail bed. Capillary refill and sensation intact. Tenderness over the top of the foot, no bruising or severe swelling. Unremarkable lower extremity exam otherwise. BACK: no cervical, thoracic, lumbar midline tenderness. No saddle anesthesia, normal distal neurovascular exam. NEUROLOGICAL: Alert and oriented x3. Normal speech. [cranial nerves II through XII grossly intact]. PSYCH: Slightly anxious SKIN: Warm, dry, normal turgor. No rashes or lesions noted. Course - Re-evaluation Re-evalutation: X-rays of the foot show no fracture or dislocation. Soft tissue swelling. Discussed with patient. Decision was made to attempt to replace the nail back under the cuticle to salvage the nail. Area was cleaned, digital block was placed, trimmed nail and placed it back under the cuticle, area was secured with Dermabond afterwards. Discussed with patient, decision was made to cover her with antibiotics because of the dirtiness of the foot after the accident. Discussed wound care, follow-up, and return precautions. Placed on crutches for comfort. Patient states understanding and agreement. - Vital Signs Vital signs: Temp Pulse Resp BP Pulse Ox 98.2 F 80 15 120/92 H 98 12/24/17 05:21 12/24/17 05:21 12/24/17 05:21 12/24/17 05:21 12/24/17 05:21 - Diagnostic Test Radiology reviewed: Image reviewed, Reports reviewed Procedures - Laceration/Wound Repair Right toe Wound length (cm): 1 Wound's Depth, Shape: Nail-avulsed Laceration pre-procedure: Sterile PPE donned, Sterile drapes applied, Shur- Clens applied Anesthetic type: 0.5% Bupivacaine Volume Anesthetic (mLs): 6 Wound explored: Clean, No foreign body removed Wound Repaired With: Dermabond Layer Closure?: No Post-procedure wound care: Sterile dressing applied Post-procedure NV exam normal: Yes Complications: No Notes: Cleaned thoroughly with surgical cleanser, digital block performed with good success but not total anesthesia unfortunately, this was not discovered until the nail had been trimmed and then I attempted to reduce the nail back under the cuticle, this was performed successfully but with some pain. Nail was secured back over the nailbed and under the cuticle with good positioning and no significant bleeding. Area was secured at the cuticle and over the side of the nail with Dermabond after the area was cleansed again. Discharge - Discharge Clinical Impression: Nail bed injury Right foot injury Qualifiers: Encounter type: initial encounter Qualified Code(s): S99.921A - Unspecified injury of right foot, initial encounter Condition: Stable Disposition: HOME, SELF-CARE Additional Instructions: Nail was secured back under the cuticle and repaired with Dermabond. X-ray does not show fracture. There is soft tissue swelling from the injury, this should resolve with time. You can apply ice to the top of your foot. Keep protective bandage over the toe, Dermabond should come off in about 5-7 days, if it does not come off after a week you can apply topical antibiotic to begin removing this. You can clean the area gently with soap and water, dab dry , avoid soaking. I recommend using crutches for the first 2 days. Take Keflex antibiotic for the first 5 days as prescribed. Return for any concerning symptoms including swelling, redness, discolored discharge, severe pain, fever of 100.4 or greater, or any other concerning symptoms. Prescriptions: Cephalexin Monohydrate [Keflex 500 mg Capsule] 500 mg PO TID #15 capsule Forms: Return to Work Referrals: FARRUKH CHUNG DO [Primary Care Provider] - Follow up as needed
[2017-12-24] MEDS ORDERED: HYDROCODONE/ACETAMINOPHEN 5-325 MG (6 TAB/ER DISP) PO PRN (05:17)
[2017-12-24 05:37] VITALS: BP 120/92
== END 2017-12-24 05:37 | disposition home or self-care (01) ==
LOC: ER 01:57
DX: S99.921A Unspecified injury of right foot, initial encounter (principal); W22.03XA Walked into furniture, initial encounter; Y92.009 Unspecified place in unspecified non-institutional (private) residence as the place of occurrence of the external cause
CPT/HCPCS: 99283; 73660; 11760; J3490 ×2

== ENCOUNTER → 2018-01-06 | Outpatient (CLI) | payer MEDICAID ==
--- NOTE | 2018-01-06 16:33 | RADIOLOGY REPORT (SQ) ---
EXAM DESCRIPTION: FOOT RIGHT COMPLETE COMPLETED DATE/TIME: 01/06/2018 4:24 pm REASON FOR STUDY: PAIN IN RIGHT FOOT M79.671 PAIN IN RIGHT FOOT COMPARISON: None. NUMBER OF VIEWS: Three views. TECHNIQUE: AP, lateral and oblique without weight bearing radiographic images acquired of the right foot. LIMITATIONS: None. FINDINGS: MINERALIZATION: Normal. BONES: No acute fracture or dislocation. No worrisome bone lesions. No significant osteophytes. JOINTS: No erosions. No pankaj-articular osteopenia. No chondrocalcinosis. SOFT TISSUES: No swelling. No calcifications. OTHER: No other significant finding. IMPRESSION: NEGATIVE STUDY OF THE RIGHT FOOT. NO EXPLANATION FOR PAIN. TECHNICAL DOCUMENTATION: JOB ID: [id number] [employer]- All Rights Reserved Reading location - IP/workstation name: [email or web address]
== END ==
LOC: OD 15:44
PROVIDERS: ATTEND Family Medicine
DX: M79.671 Pain in right foot (principal)

== ENCOUNTER 2018-01-11 15:03 | Emergency (ER) | payer MEDICAID ==
--- NOTE | 2018-01-11 16:44 | ER Document Report ---
HPI - HPI Patient complains to provider of: Medication refill Onset: Other - She is out of her methadone Quality of pain: Achy Severity: Moderate Pain Level: 3 Associated Symptoms: Other - Patient states she was hurting all over and nauseated and was not able to relax due to her not having her methadone a day Exacerbated by: Denies Relieved by: Denies Similar symptoms previously: Yes Recently seen / treated by doctor: Yes - ROS ROS below otherwise negative: Yes - CONSTITUTIONAL Constitutional: DENIES: Fever, Chills - EENT EENT: DENIES: Sore Throat, Ear Pain, Nasal Drainage-Clear, Nasal Drainage- Purulent, Congestion, Eye problems - NEURO Neurology: REPORTS: Dizzinesss / Vertigo. DENIES: Headache, Weakness, Vision blurred - CARDIOVASCULAR Cardiovascular: DENIES: Chest pain - RESPIRATORY Respiratory: DENIES: Trouble Breathing, Coughing - GASTROINTESTINAL Gastrointestinal: REPORTS: Abdominal Pain, Nausea. DENIES: Patient vomiting, Diarrhea, Constipation, Black / Bloody Stools - URINARY Urinary: DENIES: Dysuria, Urgency, Frequency - REPRODUCTIVE Reproductive: DENIES: :, Postmenopausal, Abnormal bleeding / discharge - MUSCULOSKELETAL Musculoskeletal: REPORTS: Extremity pain - Body aches all over, Back Pain. DENIES: Neck Pain - Body aches all over, Swelling - DERM Skin Color: Normal Skin Problems: None Past Medical History - General Information source: Patient - Social History Smoking Status: Current Every Day Smoker Cigarette use (# per day): Yes Chew tobacco use (# tins/day): No Smoking Education Provided: Yes - 4 minutes Frequency of alcohol use: None Drug Abuse: None, Other - She takes methadone for her narcotic addiction. She states that she went to the methadone clinic and they got her addicted to the methadone. She states she is going to Dr. Álvarez to get weaned off of the methadone but his office was closed and she did not get her dose for the day and this week. Family History: Reviewed & Not Pertinent, Other Patient has suicidal ideation: No Patient has homicidal ideation: No - Past Medical History Cardiac Medical History: Reports: Hx Heart Murmur Pulmonary Medical History: Reports: None EENT Medical History: Reports: None Neurological Medical History: Reports: Hx Migraine Endocrine Medical History: Reports: None Renal/ Medical History: Reports: None Malignancy Medical History: Reports: None GI Medical History: Reports: None Musculoskeletal Medical History: Reports Hx Musculoskeletal Trauma Skin Medical History: Reports None Psychiatric Medical History: Reports: None Traumatic Medical History: Reports: None Infectious Medical History: Reports: None Past Surgical History: Reports: Hx Oral Surgery - wisdom teeth - Immunizations Hx Diphtheria, Pertussis, Tetanus Vaccination: Yes Vertical Provider Document - CONSTITUTIONAL Agree With Documented VS: Yes Exam Limitations: No Limitations General Appearance: Mild Distress - INFECTION CONTROL TRAVEL OUTSIDE OF THE [place] IN LAST 30 DAYS: No - HEENT HEENT: Atraumatic, Normal ENT Exam, Normocephalic, PERRLA - NECK Neck: Normal Inspection, Supple - RESPIRATORY Respiratory: Breath Sounds Normal, No Respiratory Distress - CARDIOVASCULAR Cardiovascular: Regular Rate, Regular Rhythm - GI/ABDOMEN Gastrointestinal: Abdomen Soft, Abdomen Non-Tender, Normal Bowel Sounds - BACK Back: Normal Inspection - MUSCULOSKELETAL/EXTREMETIES Musculoskeletal/Extremeties: MAEW, FROM, Non-Tender - NEURO Level of Consciousness: Agitated Motor/Sensory: No Motor Deficit - DERM Integumentary: Warm, Dry, No Rash Course - Re-evaluation Re-evalutation: 01/11/18 22:05 Explained to patient that there is no one in the emergency room they can prescribe methadone. Patient was very agitated stated that she had wasted a lot of time. She states she is on clonidine at home and this has not been helping. Patient states she is nauseated and cannot sleep. Patient is given a prescription for Vistaril and Zofran for anxiety and nausea. Patient was instructed to follow-up with Dr. Álvarez first thing in the morning. - Vital Signs Vital signs: Temp Pulse Resp BP Pulse Ox 97.9 F 90 18 109/69 100 01/11/18 15:12 01/11/18 15:12 01/11/18 15:12 01/11/18 15:12 01/11/18 15:12 Discharge - Discharge Clinical Impression: out of methadone Condition: Stable Disposition: HOME, SELF-CARE Additional Instructions: You were seen today because you stated you do not have any methadone to take today you have had none since yesterday. There is no one in the emergency room that is licensed to prescribe methadone. You state to have clonidine at home and this has not helped her symptoms. We will be given a prescription for Vistaril we may help with your anxiety symptoms until you can get your medications in the morning. FOLLOW-UP CARE: If you have been referred to a physician for follow-up care, call the physician s office for an appointment as you were instructed or within the next two days. If you experience worsening or a significant change in your symptoms, notify the physician immediately or return to the Emergency Department at any time for re-evaluation. Prescriptions: Hydroxyzine Pamoate [Vistaril 50 mg Capsule] 50 mg PO DAILY #4 capsule Ondansetron [Zofran Odt 4 mg Tablet] 1 tab PO Q6H #7 tab.rapdis Referrals: FARRUKH ÁLVAREZ DO [Primary Care Provider] - Follow up tomorrow
[2018-01-11 16:53] VITALS: BP 117/73
== END 2018-01-11 16:53 | disposition home or self-care (01) ==
LOC: ER 15:03
DX: F11.20 Opioid dependence, uncomplicated (principal); R11.0 Nausea; R10.9 Unspecified abdominal pain; R42 Dizziness and giddiness; M79.1 Myalgia; M54.9 Dorsalgia, unspecified; R45.1 Restlessness and agitation; F17.210 Nicotine dependence, cigarettes, uncomplicated
CPT/HCPCS: 99281; 99406

== ENCOUNTER 2018-02-28 14:52 | Emergency (ER) | payer OTHER, MEDICAID ==
[2018-02-28] MEDS ORDERED: FENTANYL CITRATE INJ/PF 100 MCG/2 ML AMPUL IV ONE (15:19)
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
[2018-02-28 16:15] LABS: ABSOLUTE BASOPHILS # (AUTO) 0.1 10^3/uL (0.0-0.2); ABSOLUTE EOSINOPHILS # (AUTO) 0.7 10^3/uL (0.0-0.6); ABSOLUTE LYMPHOCYTES (AUTO) 3.4 10^3/uL (0.5-4.7); ABSOLUTE MONOCYTES (AUTO) 0.6 10^3/uL (0.1-1.4); ABSOLUTE NEUT (AUTO) 4.4 10^3/uL (1.7-8.2); BASOPHILS % (AUTO) 0.9 % (0-2); EOSINOPHILS % (AUTO) 7.2 % (0-6); HEMATOCRIT 44.9 % (36.0-47.0); HEMOGLOBIN 15.4 g/dL (12.0-15.5); LYMPHOCYTES % (AUTO) 37.2 % (13-45); MEAN CORPUSCULAR HEMOGLOBIN 31.4 pg (27.0-33.4); MEAN CORPUSCULAR HGB CONC 34.3 g/dL (32.0-36.0); MEAN CORPUSCULAR VOLUME 91 fl (80-97); MONOCYTES % (AUTO) 6.2 % (3-13); PLATELET COUNT 342 10^3/uL (150-450); RED BLOOD COUNT 4.91 10^6/uL (3.72-5.28); RED CELL DISTRIBUTION WIDTH 13.5 % (11.5-14.0); SEGMENTED NEUTROPHILS % (AUTO) 48.5 % (42-78); TOTAL CELLS COUNTED % (AUTO) 100 %; WHITE BLOOD COUNT 9.1 10^3/uL (4.0-10.5)
[2018-02-28 16:28] LABS: ALANINE AMINOTRANSFERASE 41 U/L (9-52); ALBUMIN 4.7 g/dL (3.5-5.0); ALKALINE PHOSPHATASE 79 U/L (38-126); ANION GAP 10 (5-19); ASPARTATE AMINO TRANSFERASE 49 U/L (14-36); BILIRUBIN,DIRECT 0.2 mg/dL (0.0-0.4); BILIRUBIN,TOTAL 0.4 mg/dL (0.2-1.3); BLOOD UREA NITROGEN 13 mg/dL (7-20); CALCIUM 10.5 mg/dL (8.4-10.2); CARBON DIOXIDE 28 mmol/L (22-30); CHLORIDE 101 mmol/L (98-107); GLUCOSE 76 mg/dL (75-110); POTASSIUM 4.5 mmol/L (3.6-5.0); SODIUM 139.3 mmol/L (137-145); TOTAL PROTEIN 8.1 g/dL (6.3-8.2)
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
--- NOTE | 2018-02-28 17:48 | RADIOLOGY REPORT (SQ) ---
EXAM DESCRIPTION: SHOULDER LEFT 2 OR MORE VIEWS COMPLETED DATE/TIME: 02/28/2018 5:30 pm REASON FOR STUDY: pain in clavicle and proximal humerus COMPARISON: None. NUMBER OF VIEWS: Three views. TECHNIQUE: Internal rotation, external rotation, and Y view images acquired of the left shoulder. LIMITATIONS: None. FINDINGS: MINERALIZATION: Normal. BONES: No acute fracture or dislocation. No worrisome bone lesions. JOINTS: No dislocation. VISUALIZED LUNGS AND RIBS: No pneumothorax. No rib fracture. SOFT TISSUES: No radiopaque foreign body. OTHER: No other significant finding. IMPRESSION: NEGATIVE STUDY OF THE LEFT SHOULDER. NO RADIOGRAPHIC EVIDENCE OF ACUTE INJURY. TECHNICAL DOCUMENTATION: JOB ID: [id number] [employer]- All Rights Reserved Reading location - IP/workstation name: [email or web address]
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
[2018-02-28] MEDS ORDERED: KETOROLAC TROMETHAMINE INJ/PF 30 MG/1 ML SDV IV ONE (17:51)
[2018-02-28] MEDS ORDERED: LORAZEPAM INJ 2 MG/1 ML VIAL IV ONE (18:05)
[2018-02-28 18:25] VITALS: BP 114/59
== END 2018-02-28 18:25 | disposition home or self-care (01) ==
LOC: ER 14:52
DX: S09.90XA Unspecified injury of head, initial encounter (principal); M54.6 Pain in thoracic spine; M25.512 Pain in left shoulder; M25.552 Pain in left hip; R51 Headache; V87.7XXA Person injured in collision between other specified motor vehicles (traffic), initial encounter; F17.200 Nicotine dependence, unspecified, uncomplicated
CPT/HCPCS: 99285; 96374; 96375; 86900; 86901; 36415; 86850; 85025; 81025; 80053; 71046; 73030; 72070; 70450; 72125; 74177; L0120; J3010; J1885; J2060

== ENCOUNTER → 2018-03-31 | Outpatient (CLI) | payer MEDICAID ==
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
--- NOTE | 2018-03-31 17:15 | RADIOLOGY REPORT (SQ) ---
EXAM DESCRIPTION: KNEE LEFT 4 VIEWS COMPLETED DATE/TIME: 03/31/2018 5:04 pm REASON FOR STUDY: UNSPECIFIED INJURY OF LEFT LOWER LEG, SUBSEQUENT ENCOUNTER S89.92XD UNSPECIFIED I NJURY OF LEFT LOWER LEG, SUBSEQUENT EN M79.671 PAIN IN RIGHT FOOT injury, twisted left knee COMPARISON: None. NUMBER OF VIEWS: Four views. TECHNIQUE: AP, lateral, and both oblique radiographic images acquired of the left knee. LIMITATIONS: None. FINDINGS: MINERALIZATION: Normal. BONES: No acute fracture or dislocation. No worrisome bone lesions. JOINT: No effusion. SOFT TISSUES: No soft tissue swelling. No radio-opaque foreign body. OTHER: No other significant finding. IMPRESSION: NEGATIVE STUDY OF THE LEFT KNEE. NO RADIOGRAPHIC EVIDENCE OF ACUTE INJURY. TECHNICAL DOCUMENTATION: JOB ID: [id number] [employer]- All Rights Reserved Reading location - IP/workstation name: [email or web address]
== END ==
LOC: OD 16:38
PROVIDERS: ATTEND Family Medicine
DX: S89.92XD Unspecified injury of left lower leg, subsequent encounter (principal); M79.671 Pain in right foot

== ENCOUNTER 2018-04-17 20:56 | Emergency (ER) | payer OTHER, MEDICAID ==
[2018-04-17 21:08] VITALS: BP 141/100
[2018-04-17] MEDS ORDERED: KETOROLAC TROMETHAMINE 60 MG/2 ML SDV IM ONE (22:18)
[2018-04-17] MEDS ORDERED: MORPHINE SULFATE IR 15 MG TABLET PO ONE (22:23)
[2018-04-17] MEDS ORDERED: LIDOCAINE 5% (700 MG) TRANSDERMAL ADH..PATCH TP ONE (22:28)
[2018-04-17] MEDS ORDERED: ACETAMINOPHEN 325 MG TABLET PO ONE (22:28)
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
[2018-04-17] MEDS ORDERED: NORMAL SALINE 1000 ML 1,000 ML IV ONE (23:15)
[2018-04-17] MEDS ORDERED: KETOROLAC TROMETHAMINE INJ/PF 30 MG/1 ML SDV IV ONE (23:16)
--- NOTE | 2018-04-18 00:58 | RADIOLOGY REPORT (SQ) ---
EXAM DESCRIPTION: XR RIGHT SHOULDER 2 OR MORE VIEWS COMPLETED DATE/TME: 04/17/2018 22:27 CLINICAL HISTORY: 32 years, Female, trauma, pain COMPARISON: None. NUMBER OF VIEWS: TECHNIQUE: LIMITATIONS: None. FINDINGS: No fracture or dislocation. The acromioclavicular joint appears intact. Mineralization of bone appears normal. IMPRESSION: No fracture or dislocation. copyright 2010 [employer]- All Rights Reserved
[2018-04-18] MEDS ORDERED: KETOROLAC TROMETHAMINE INJ/PF 30 MG/1 ML SDV IV ONE (02:47)
[2018-04-18] MEDS ORDERED: EMTRICITABINE/TENOFOVIR 200-300 MG TAB (3 TAB/ER DISP) PO PRN (02:49)
[2018-04-18] MEDS ORDERED: EMTRICITABINE/TENOFOVIR 200-300 MG TABLET PO ONE (02:49)
[2018-04-18] MEDS ORDERED: RALTEGRAVIR 400 MG TAB (6 TAB/ER DISP) PO PRN (02:54)
[2018-04-18 03:13] LABS: EPITHELIALS (WET MOUNT) 4+ EPITHELIALS SEEN; RBCS (WET MOUNT) NO RBCS SEEN; T.VAGINALIS (WET MOUNT) NO TRICHOMONAS SEEN; WBCS (WET MOUNT) 2+ WBCS SEEN; YEAST (WET MOUNT) NO YEAST SEEN
[2018-04-18] MEDS ORDERED: LIDOCAINE 5% (700 MG) TRANSDERMAL ADH..PATCH TP ONE (03:39)
[2018-04-18] MEDS ORDERED: ONDANSETRON ODT 4 MG TAB (6 TAB/ER DISP) PO PRN (03:57)
[2018-04-18 04:40] LABS: CHLAM PCR NOT DETECTED (NOT DETECT); GON PCR NOT DETECTED (NOT DETECT)
== END 2018-04-18 04:15 | disposition home or self-care (01) ==
LOC: ER 20:56
DX: T76.21XA Adult sexual abuse, suspected, initial encounter (principal); S09.90XA Unspecified injury of head, initial encounter; S49.91XA Unspecified injury of right shoulder and upper arm, initial encounter; R10.2 Pelvic and perineal pain; Y04.2XXA Assault by strike against or bumped into by another person, initial encounter; Y92.002 Bathroom of unspecified non-institutional (private) residence as the place of occurrence of the external cause
CPT/HCPCS: 96376; 99285; 96361; 96374; 87210; 81025; 87491; 87591; 73030; J1885; J7030

== ENCOUNTER 2018-05-29 21:08 | Emergency (ER) | payer MEDICAID, OTHER ==
[2018-05-29] MEDS ORDERED: MORPHINE SULFATE 10 MG/ML INJ IM ONE (23:40)
[2018-05-29] MEDS ORDERED: LORAZEPAM 1 MG TABLET PO ONE (23:41)
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
[2018-05-30 00:55] LABS: BACTERIA (WET MOUNT) 4+ BACTERIA SEEN; EPITHELIALS (WET MOUNT) 4+ EPITHELIALS SEEN; RBCS (WET MOUNT) 3+ RBCS SEEN; T.VAGINALIS (WET MOUNT) NO TRICHOMONAS SEEN; WBCS (WET MOUNT) 2+ WBCS SEEN; YEAST (WET MOUNT) NO YEAST SEEN
[2018-05-30 00:56] LABS: APPEARANCE,URINE SLIGHTLY-CLOUDY; BILIRUBIN,URINE NEGATIVE (NEGATIVE); COLOR,URINE STRAW; GLUCOSE, URINE NEGATIVE (NEGATIVE); KETONES,URINE NEGATIVE (NEGATIVE); LEUKOCYTE ESTERASE,URINE NEGATIVE (NEGATIVE); NITRITE,URINE NEGATIVE (NEGATIVE); PROTEIN,URINE NEGATIVE (NEGATIVE); URINE SPECIFIC GRAVITY 1.005; UROBILINOGEN,URINE NEGATIVE mg/dL (<2.0)
--- NOTE | 2018-05-30 01:19 | RADIOLOGY REPORT (SQ) ---
EXAM DESCRIPTION: US TRANSVAGINAL COMPLETED DATE/TME: 05/30/2018 00:24 CLINICAL HISTORY: 32 years Female, pelvic pain, mass vaginal wall Comparison: None. Technique: Transvaginal. LIMITATIONS: None. FINDINGS: There is a 1.5 x 1.2 x 1.0 cm heterogeneous nodule or mass without significant vascularity marked as "vaginal area." 9-cm uterus, 0.3-cm endometrial stripe thickness, 3.3-cm cervical length, 3.0-cm right ovary, and 3.2-cm left ovary appear otherwise unremarkable in size, shape, echotexture, and vascularity. Trace free fluid. IMPRESSION: 1. Possible 1.5 cm Bartholin's cyst. Differential etiologies include other infectious, inflammatory, and neoplastic processes. 2. Else, unremarkable pelvic sonogram.
[2018-05-30] MEDS ORDERED: HYDROMORPHONE HCL INJ/PF 2 MG/ML AMPULE IM ONE (01:58)
[2018-05-30 02:20] LABS: CHLAM PCR NOT DETECTED (NOT DETECT); GON PCR NOT DETECTED (NOT DETECT)
[2018-05-30 02:54] VITALS: BP 109/55
== END 2018-05-30 02:53 | disposition home or self-care (01) ==
LOC: ER 21:08
DX: N76.0 Acute vaginitis (principal); B96.89 Other specified bacterial agents as the cause of diseases classified elsewhere; T74.21XD Adult sexual abuse, confirmed, subsequent encounter; R10.2 Pelvic and perineal pain; N89.8 Other specified noninflammatory disorders of vagina; Z20.2 Contact with and (suspected) exposure to infections with a predominantly sexual mode of transmission
CPT/HCPCS: 99284; 96372; 87210; 81025; 81001; 87491; 87591; 76830; 93976; J2270; J1170

== ENCOUNTER 2018-08-13 15:55 | Emergency (ER) | payer SELFPAY ==
--- NOTE | 2018-08-13 17:04 | ER Document Report ---
ED Medical Screen (RME) - General Chief Complaint: Abdominal Pain Stated Complaint: DIARRHEA/VOMITING/ABDOMINAL PAIN Time Seen by Provider: 08/13/18 16:48 Primary Care Provider: FARRUKH CHUNG DO [Primary Care Provider] - Follow up as needed Mode of Arrival: Ambulatory Information source: Patient Notes: Patient is an otherwise healthy 33-year-old female who presents to the emergency department with reports of uncontrollable diarrhea over the last 6 days. Patient also reports 5-day history of vomiting including vomiting blood. Patient describes this as bright red blood. Has not had any episodes of bloody emesis since last night. Patient reports severe epigastric pain associated with this. Denies any fevers. Exam: Patient alert, oriented and answering all questions appropriately. Tenderness to palpation epigastric area. I have greeted and performed a rapid initial assessment of this patient. A comprehensive ED assessment and evaluation of the patient, analysis of test results and completion of the medical decision making process will be conducted by additional ED providers. Dictation of this chart was performed using voice recognition software; therefore, there may be some unintended grammatical errors. TRAVEL OUTSIDE OF THE [place] IN LAST 30 DAYS: No - Related Data Allergies/Adverse Reactions: No Known Allergies Allergy (Verified 01/11/18 15:10) Past Medical History - Past Medical History Cardiac Medical History: Reports: Hx Heart Murmur Denies: Hx Coronary Artery Disease, Hx Heart Attack, Hx Hypertension Pulmonary Medical History: Denies: Hx Asthma, Hx Bronchitis, Hx COPD, Hx Pneumonia Neurological Medical History: Reports: Hx Migraine. Denies: Hx Cerebrovascular Accident, Hx Seizures Renal/ Medical History: Denies: Hx Peritoneal Dialysis Musculoskeltal Medical History: Denies Hx Arthritis, Reports Hx Musculoskeletal Trauma Past Surgical History: Reports: Hx Oral Surgery - wisdom teeth - Immunizations Hx Diphtheria, Pertussis, Tetanus Vaccination: Yes Physical Exam - Vital signs Vitals: Temp Pulse Resp BP Pulse Ox 98.7 F 88 18 134/77 H 98 08/13/18 16:08 08/13/18 16:08 08/13/18 16:08 08/13/18 16:08 08/13/18 16:08 Course - Vital Signs Vital signs: Temp Pulse Resp BP Pulse Ox 98.7 F 88 18 134/77 H 98 08/13/18 16:08 08/13/18 16:08 08/13/18 16:08 08/13/18 16:08 08/13/18 16:08 Doctor's Discharge - Discharge Referrals: FARRUKH CHUNG, [Primary Care Provider] - Follow up as needed
[2018-08-13] MEDS ORDERED: NORMAL SALINE 1000 ML 1,000 ML IV ONE (17:06)
[2018-08-13] MEDS ORDERED: ONDANSETRON HCL INJ/PF 4 MG/2 ML SDV IV ONE (17:06)
[2018-08-13 17:51] LABS: ABSOLUTE EOSINOPHILS # (AUTO) 0.6 10^3/uL (0.0-0.6); ABSOLUTE LYMPHOCYTES (AUTO) 2.4 10^3/uL (0.5-4.7); ABSOLUTE MONOCYTES (AUTO) 0.7 10^3/uL (0.1-1.4); ABSOLUTE NEUT (AUTO) 7.1 10^3/uL (1.7-8.2); BASOPHILS % (AUTO) 0.3 % (0-2); EOSINOPHILS % (AUTO) 5.3 % (0-6); HEMATOCRIT 43.5 % (36.0-47.0); HEMOGLOBIN 14.9 g/dL (12.0-15.5); MEAN CORPUSCULAR HEMOGLOBIN 31.5 pg (27.0-33.4); MEAN CORPUSCULAR HGB CONC 34.4 g/dL (32.0-36.0); MEAN CORPUSCULAR VOLUME 92 fl (80-97); MONOCYTES % (AUTO) 6.3 % (3-13); PLATELET COUNT 289 10^3/uL (150-450); RED BLOOD COUNT 4.74 10^6/uL (3.72-5.28); RED CELL DISTRIBUTION WIDTH 13.1 % (11.5-14.0); SEGMENTED NEUTROPHILS % (AUTO) 66.1 % (42-78); TOTAL CELLS COUNTED % (AUTO) 100 %; WHITE BLOOD COUNT 10.8 10^3/uL (4.0-10.5)
[2018-08-13 18:09] LABS: APPEARANCE,URINE SLIGHTLY-CLOUDY; BILIRUBIN,URINE NEGATIVE (NEGATIVE); COLOR,URINE YELLOW; GLUCOSE, URINE NEGATIVE (NEGATIVE); KETONES,URINE NEGATIVE (NEGATIVE); LEUKOCYTE ESTERASE,URINE NEGATIVE (NEGATIVE); NITRITE,URINE NEGATIVE (NEGATIVE); PROTEIN,URINE 30 mg/dL (NEGATIVE); URINE SPECIFIC GRAVITY 1.006; UROBILINOGEN,URINE NEGATIVE mg/dL (<2.0)
[2018-08-13 18:14] LABS: ALANINE AMINOTRANSFERASE 19 U/L (9-52); ALBUMIN 4.4 g/dL (3.5-5.0); ALKALINE PHOSPHATASE 66 U/L (38-126); ANION GAP 8 (5-19); ASPARTATE AMINO TRANSFERASE 23 U/L (14-36); BILIRUBIN,DIRECT 0.2 mg/dL (0.0-0.4); BILIRUBIN,TOTAL 0.4 mg/dL (0.2-1.3); BLOOD UREA NITROGEN 8 mg/dL (7-20); CALCIUM 10.8 mg/dL (8.4-10.2); CARBON DIOXIDE 27 mmol/L (22-30); CHLORIDE 105 mmol/L (98-107); GLUCOSE 80 mg/dL (75-110); LIPASE 22.5 U/L (23-300); POTASSIUM 4.5 mmol/L (3.6-5.0); SODIUM 139.5 mmol/L (137-145); TOTAL PROTEIN 7.7 g/dL (6.3-8.2)
[2018-08-13] MEDS ORDERED: HYDROMORPHONE HCL INJ/PF 2 MG/ML AMPULE IV ONE (19:24)
--- NOTE | 2018-08-13 19:31 | ER Document Report ---
ED General - General Chief Complaint: Abdominal Pain Stated Complaint: DIARRHEA/VOMITING/ABDOMINAL PAIN Time Seen by Provider: 08/13/18 16:48 Primary Care Provider: FARRUKH CHUNG DO [Primary Care Provider] - Follow up as needed Mode of Arrival: Ambulatory Information source: Patient TRAVEL OUTSIDE OF THE [place] IN LAST 30 DAYS: No - HPI Patient complains to provider of: Extreme abdominal pain, uncontrolled diarrhea, vomiting with blood Onset: Other - 6 days Quality of pain: Cramping, Sharp Severity: Severe Pain Level: 5 Associated symptoms: denies: Chills, Fever Exacerbated by: Denies Relieved by: Denies Similar symptoms previously: No Recently seen / treated by doctor: No Notes: 33-year-old female coming in today with extreme abdominal pain for the past 6 days. Also uncontrolled diarrhea 15-20 episodes per day which is dark and mucousy. Vomiting several times a day and occasionally has blood "chunks". Patient has history of endometriosis in the past and multiple abdominal surgeries. - Related Data Allergies/Adverse Reactions: No Known Allergies Allergy (Verified 01/11/18 15:10) Past Medical History - General Information source: Patient - Social History Smoking Status: Current Every Day Smoker Chew tobacco use (# tins/day): No Frequency of alcohol use: None Drug Abuse: None Family History: Reviewed & Not Pertinent, Other Patient has suicidal ideation: No Patient has homicidal ideation: No - Past Medical History Cardiac Medical History: Reports: Hx Heart Murmur Denies: Hx Coronary Artery Disease, Hx Heart Attack, Hx Hypertension Pulmonary Medical History: Denies: Hx Asthma, Hx Bronchitis, Hx COPD, Hx Pneumonia Neurological Medical History: Reports: Hx Migraine. Denies: Hx Cerebrovascular Accident, Hx Seizures Renal/ Medical History: Denies: Hx Peritoneal Dialysis Musculoskeletal Medical History: Denies Hx Arthritis, Reports Hx Musculoskeletal Trauma Past Surgical History: Reports: Hx Oral Surgery - wisdom teeth - Immunizations Hx Diphtheria, Pertussis, Tetanus Vaccination: Yes Review of Systems - Review of Systems Notes: Constitutional: No fevers. No chills. EENT: No eye redness. No eye pain. No ear pain. No sore throat. Cardiovascular: No chest pain. No palpitations. Respiratory: No cough. No shortness of breath. No respiratory distress. Gastrointestinal: Positive for abdominal pain, nausea, vomiting, diarrhea Genitourinary: Atraumatic. No lesions. No pain. No discharge. Musculoskeletal: Atraumatic. No swelling. No deformities. Skin: No rash or lesions. Lymphatic: No swollen lymph nodes. Neurologic: No headache. No syncope. Psychiatric: No suicidal or homicidal ideation. Physical Exam - Vital signs Vitals: Temp Pulse Resp BP Pulse Ox 98.7 F 88 18 134/77 H 98 08/13/18 16:08 08/13/18 16:08 08/13/18 16:08 08/13/18 16:08 08/13/18 16:08 - Notes Notes: General: Well-developed, well-nourished. Looks very uncomfortable. Non-toxic appearing. Cardiac: Well-perfused. Regular rate and rhythm. No murmurs, rubs, or gallops. Pulmonary: No respiratory distress. No cyanosis. Bilateral lung atkins are clear to auscultation. Abdominal: Abdomen is soft, nondistended. Diffuse tenderness to palpation without guarding or rebound. Normal bowel sounds present all 4 quadrants HEENT: Head is atraumatic. Conjunctivae not reddened. No tearing. PERRL. EOMI. Orbits atraumatic. No periorbital swelling or erythema. Oropharynx is without erythema, swelling, or exudates. Neck: Supple. No adenopathy. No meningismus. Dermatologic: Warm with good turgor. No rash. Atraumatic. Chest: Atraumatic. No chest wall tenderness to palpation. Musculoskeletal: Moves all extremities well. No range of motion deficits. no muscular or joint tenderness. No paraspinal muscle tenderness. no midline spinal tenderness or step-off. Genitourinary: Examination deferred Neurologic: No gross neurologic deficits. Psychiatric: Normal mood. Course - Re-evaluation Re-evalutation: 08/13/18 19:30 Patient's history and physical out of proportion to exam. No white count and normal electrolytes so far. Normal lipase. Because of the tenderness in the ongoing symptoms, we will go ahead and get a CAT scan to rule out something more serious. 08/13/18 21:08 Patient feeling significantly better. Did not give any kind of a diarrhea specimen to check out any further. CT scan completely normal. Labs completely normal. Will discharge home follow-up with GI - Vital Signs Vital signs: Temp Pulse Resp BP Pulse Ox 98.7 F 88 18 134/77 H 98 08/13/18 16:08 08/13/18 16:08 08/13/18 16:08 08/13/18 16:08 08/13/18 16:08 - Laboratory Result Diagrams: 08/13/18 17:25 08/13/18 17:25 Laboratory results interpreted by me: 08/13/18 08/13/18 08/13/18 17:25 17:25 17:25 WBC 10.8 H Calcium 10.8 H Lipase 22.5 L Urine Protein 30 H Discharge - Discharge Clinical Impression: Abdominal pain Qualifiers: Abdominal location: generalized Qualified Code(s): R10.84 - Generalized abdominal pain Condition: Good Disposition: HOME, SELF-CARE Instructions: Abdominal Pain ([facility]), Antispasmodics ([facility]), Oral Narcotic Medication ([facility]), Antinausea Medication ([facility]) Additional Instructions: Please take all medications as instructed. Follow-up with your GI doctor on Thursday Prescriptions: Dicyclomine HCl [Bentyl 20 mg Tablet] 20 mg PO QID #40 tablet Metoclopramide HCl [Reglan 10 mg Tablet] 1 tab PO ASDIR PRN #25 tablet PRN Reason: Referrals: FARRUKH CHUNG DO [Primary Care Provider] - Follow up as needed
--- NOTE | 2018-08-13 20:59 | RADIOLOGY REPORT (SQ) ---
EXAM DESCRIPTION: CT ABDOMEN PELVIS WITH IV CONTRAST COMPLETED DATE/TME: 08/13/2018 19:25 CLINICAL HISTORY: 33 years, Female, periumbilical pain COMPARISON: None. TECHNIQUE: EXAM DESCRIPTION: CLINICAL HISTORY: periumbilical pain COMPARISON: None Available TECHNIQUE: Contiguous axial images of the abdomen and pelvis were obtained after the administration of intravenous contrast followed by reconstruction images.This exam was performed according to our departmental dose-optimization program, which includes automated exposure control, adjustment of the mA and/or kV according to patient size and/or use of iterative reconstruction technique. FINDINGS: Trace fluid in the pelvis may be physiologic. The liver, spleen, pancreas and kidneys are within normal limits. There is no hydronephrosis. The gallbladder is unremarkable. Adrenal glands are within normal limits. Aorta is normal in caliber and tapering. No significant free fluid. No free air. No bowel obstruction. There is no stranding of the mesenteric fat. The appendix appears normal. No evidence of periappendiceal inflammation. IMPRESSION: No acute intra-abdominal abnormality
[2018-08-13] MEDS ORDERED: HYDROCODONE/ACETAMINOPHEN 5-325 MG (6 TAB/ER DISP) PO PRN (21:09)
[2018-08-13 21:34] VITALS: BP 111/58
== END 2018-08-13 21:34 | disposition home or self-care (01) ==
LOC: ER 15:55
DX: R10.84 Generalized abdominal pain (principal); R10.817 Generalized abdominal tenderness; R19.7 Diarrhea, unspecified; K92.0 Hematemesis; F17.200 Nicotine dependence, unspecified, uncomplicated
CPT/HCPCS: 99284; 96361; 96374; 96375; 36415; 83690; 85025; 81025; 80053; 81001; 74177; J1170; J2405; J7030

== ENCOUNTER 2018-09-10 02:49 | Emergency (ER) | payer SELFPAY ==
[2018-09-10] MEDS ORDERED: NALOXONE HCL INJ/PF 0.4 MG/1 ML SDV ONE (02:58)
[2018-09-10 03:01] LABS: ABSOLUTE BASOPHILS # (AUTO) 0.1 10^3/uL (0.0-0.2); ABSOLUTE EOSINOPHILS # (AUTO) 0.3 10^3/uL (0.0-0.6); ABSOLUTE LYMPHOCYTES (AUTO) 4.3 10^3/uL (0.5-4.7); ABSOLUTE MONOCYTES (AUTO) 0.7 10^3/uL (0.1-1.4); ABSOLUTE NEUT (AUTO) 7.5 10^3/uL (1.7-8.2); EOSINOPHILS % (AUTO) 2.5 % (0-6); HEMATOCRIT 39.1 % (36.0-47.0); HEMOGLOBIN 13.3 g/dL (12.0-15.5); LYMPHOCYTES % (AUTO) 33.2 % (13-45); MEAN CORPUSCULAR HGB CONC 34.1 g/dL (32.0-36.0); MEAN CORPUSCULAR VOLUME 91 fl (80-97); MONOCYTES % (AUTO) 5.5 % (3-13); PLATELET COUNT 341 10^3/uL (150-450); RED BLOOD COUNT 4.31 10^6/uL (3.72-5.28); RED CELL DISTRIBUTION WIDTH 13.2 % (11.5-14.0); SEGMENTED NEUTROPHILS % (AUTO) 57.8 % (42-78); TOTAL CELLS COUNTED % (AUTO) 100 %
--- NOTE | 2018-09-10 03:10 | ER Document Report ---
ED General - General Chief Complaint: Unresponsive Stated Complaint: UNRESPONSIVE Time Seen by Provider: 09/10/18 02:53 Primary Care Provider: FARRUKH CHUNG DO [Primary Care Provider] - Follow up as needed Notes: Patient is a 33-year-old female presents to the emergency department unresponsive. Per nursing staff patient was placed in a wheelchair by a middle- aged male and appeared unresponsive. Nursing staff states they will the patient back to trauma 1. Nursing staff states this middle-age male states "I do not know what she took or did." Patient is arousable with painful stimuli. Patient states she does take Subutex, Adderall, BuSpar, Xanax. Patient admits to drinking "a lot of liquor." Patient does appear atraumatic, no obvious track borrero noted. TRAVEL OUTSIDE OF THE [place] IN LAST 30 DAYS: No - Related Data Allergies/Adverse Reactions: No Known Allergies Allergy (Verified 01/11/18 15:10) Past Medical History - General Information source: Patient, Friend - Social History Smoking Status: Unknown if Ever Smoked Family History: Reviewed & Not Pertinent, Other - Past Medical History Cardiac Medical History: Reports: Hx Heart Murmur Denies: Hx Coronary Artery Disease, Hx Heart Attack, Hx Hypertension Pulmonary Medical History: Denies: Hx Asthma, Hx Bronchitis, Hx COPD, Hx Pneumonia Neurological Medical History: Reports: Hx Migraine. Denies: Hx Cerebrovascular Accident, Hx Seizures Renal/ Medical History: Denies: Hx Peritoneal Dialysis Musculoskeletal Medical History: Denies Hx Arthritis, Reports Hx Musculoskeletal Trauma Past Surgical History: Reports: Hx Oral Surgery - wisdom teeth - Immunizations Hx Diphtheria, Pertussis, Tetanus Vaccination: Yes Review of Systems - Review of Systems Constitutional: No symptoms reported EENT: No symptoms reported Cardiovascular: No symptoms reported Respiratory: No symptoms reported Gastrointestinal: No symptoms reported Genitourinary: No symptoms reported Female Genitourinary: No symptoms reported Musculoskeletal: No symptoms reported Skin: No symptoms reported Hematologic/Lymphatic: No symptoms reported Neurological/Psychological: See HPI Physical Exam - Vital signs Vitals: Resp Pulse Ox 15 100 09/10/18 02:50 09/10/18 02:50 - Notes Notes: GENERAL: responsive to painful stimuli only. HEAD: Normocephalic, atraumatic. EYES: Pupils equal, round, and reactive to light. ENT: Oral mucosa moist, tongue midline. Nares patent, no nasal septal hematoma, TM's intact, no hemotympanum noted bilaterally. NECK: Full range of motion. Supple. Trachea midline. LUNGS: Clear to auscultation bilaterally, no wheezes, rales, or rhonchi. No respiratory distress. HEART: Regular rate and rhythm. No murmur ABDOMEN: Soft, Non-distended. Bowel sounds present in all 4 quadrants. EXTREMITIES: Moves all 4 extremities spontaneously yet not on command. No edema. No edema, normal radial and dorsalis pedis pulses bilaterally. No cyanosis. NEUROLOGICAL: Responsive to painful stimuli only SKIN: Warm, dry, normal turgor. No rashes or lesions noted. Course - Re-evaluation Re-evalutation: 09/10/18 03:09 Patient's pulse oxygenation was noted to be 88 to 89%. Pulse oxygenation probe was noted to be on patient's right index finger. Fingers did appear to be cold, lung sounds are clear and equal in all atkins patient is in no respiratory distress. Pulse oxygenation probe was changed to patient's left ear. She is now reading 100% with a good Pleth chest x-ray and ABG already ordered. 09/10/18 05:54 Laboratory 09/10/18 09/10/18 09/10/18 02:50 02:50 02:50 WBC 13.0 H RBC 4.31 Hgb 13.3 Hct 39.1 MCV 91 MCH 31.0 MCHC 34.1 RDW 13.2 Plt Count 341 Seg Neutrophils % 57.8 Lymphocytes % 33.2 Monocytes % 5.5 Eosinophils % 2.5 Basophils % 1.0 Absolute Neutrophils 7.5 Absolute Lymphocytes 4.3 Absolute Monocytes 0.7 Absolute Eosinophils 0.3 Absolute Basophils 0.1 Carbonic Acid HCO3/H2CO3 Ratio ABG pH ABG pCO2 ABG pO2 ABG HCO3 ABG Total CO2 ABG O2 Saturation ABG Base Excess FiO2 Sodium 143.4 Potassium 3.9 Chloride 107 Carbon Dioxide 24 Anion Gap 12 BUN 9 Creatinine 0.87 Est GFR ( Amer) > 60 Est GFR (Non-Af Amer) > 60 Glucose 80 Calcium 10.2 Total Bilirubin 0.5 Direct Bilirubin 0.3 Neonat Total Bilirubin Not Reportable Neonat Direct Bilirubin Not Reportable Neonat Indirect Bili Not Reportable AST 31 ALT 30 Alkaline Phosphatase 52 Total Protein 7.7 Albumin 4.6 Serum HCG, Qual NEGATIVE Urine Color Urine Appearance Urine pH Ur Specific [place] Urine Protein Urine Glucose (UA) Urine Ketones Urine Blood Urine Nitrite Urine Bilirubin Urine Urobilinogen Ur Leukocyte Esterase Urine WBC (Auto) U Hyaline Cast (Auto) Urine Bacteria (Auto) Squamous Epi Cells Auto Urine Mucus (Auto) Urine Ascorbic Acid Salicylates < 1.0 L Urine Opiates Screen Urine Methadone Screen Acetaminophen < 10 L Ur Barbiturates Screen Ur Phencyclidine Scrn Ur Amphetamines Screen U Benzodiazepines Scrn Urine Cocaine Screen U Marijuana (THC) Screen Serum Alcohol 128 09/10/18 09/10/18 09/10/18 03:00 03:00 03:28 WBC RBC Hgb Hct MCV MCH MCHC RDW Plt Count Seg Neutrophils % Lymphocytes % Monocytes % Eosinophils % Basophils % Absolute Neutrophils Absolute Lymphocytes Absolute Monocytes Absolute Eosinophils Absolute Basophils Carbonic Acid 1.06 HCO3/H2CO3 Ratio 21:1 ABG pH 7.42 ABG pCO2 35.1 ABG pO2 95.3 ABG HCO3 22.3 ABG Total CO2 23.3 ABG O2 Saturation 97.4 ABG Base Excess -1.6 FiO2 ROOM AIR Sodium Potassium Chloride Carbon Dioxide Anion Gap BUN Creatinine Est GFR ( Amer) Est GFR (Non-Af Amer) Glucose Calcium Total Bilirubin Direct Bilirubin Neonat Total Bilirubin Neonat Direct Bilirubin Neonat Indirect Bili AST ALT Alkaline Phosphatase Total Protein Albumin Serum HCG, Qual Urine Color YELLOW Urine Appearance CLEAR Urine pH 6.0 Ur Specific [place] 1.009 Urine Protein NEGATIVE Urine Glucose (UA) NEGATIVE Urine Ketones NEGATIVE Urine Blood NEGATIVE Urine Nitrite NEGATIVE Urine Bilirubin NEGATIVE Urine Urobilinogen NEGATIVE Ur Leukocyte Esterase NEGATIVE Urine WBC (Auto) 0 U Hyaline Cast (Auto) 2 Urine Bacteria (Auto) TRACE Squamous Epi Cells Auto <1 Urine Mucus (Auto) MOD Urine Ascorbic Acid NEGATIVE Salicylates Urine Opiates Screen NEGATIVE Urine Methadone Screen UNCONFIRMED POSITIVE Acetaminophen Ur Barbiturates Screen NEGATIVE Ur Phencyclidine Scrn NEGATIVE Ur Amphetamines Screen UNCONFIRMED POSITIVE U Benzodiazepines Scrn UNCONFIRMED POSITIVE Urine Cocaine Screen NEGATIVE U Marijuana (THC) Screen UNCONFIRMED POSITIVE Serum Alcohol Patient's labs are as above. 05:30 Patient is currently conscious alert and oriented x4. Patient states she drank "a lot tonight." Patient states she did smoke marijuana recently and was told afterwards it was "laced with heroin." Patient states she was recently in rehab for alcohol abuse. States her boyfriend told her that she was "drinking too much tonight." States her boyfriend told her he was going to "make her stop." Patient serum alcohol and was noted to be 128 via lab analysis. Patient currently is clinically sober, conscious alert and oriented x4. She is complaining of a minor headache. CT imaging head, neck revealed no signs of acute fractures or abnormalities. Patient is denying suicidal or homicidal ideations. She is currently denying Auditory or visual hallucinations. Patient is currently stable for discharge. - Vital Signs Vital signs: Temp Pulse Resp BP Pulse Ox 17 107/60 100 09/10/18 05:00 09/10/18 05:45 09/10/18 05:43 - Laboratory Result Diagrams: 09/10/18 02:50 09/10/18 02:50 Laboratory results interpreted by me: 09/10/18 09/10/18 02:50 02:50 WBC 13.0 H Salicylates < 1.0 L Acetaminophen < 10 L Discharge - Discharge Clinical Impression: Unresponsive episode, Polysubstance abuse Alcohol intoxication Qualifiers: Complication of substance-induced condition: uncomplicated Qualified Code(s): F10.920 - Alcohol use, unspecified with intoxication, uncomplicated Condition: Stable Disposition: HOME, SELF-CARE Instructions: Acute Alcohol Intoxication ([facility]) Additional Instructions: As we discussed you have been seen and treated in the emergency department for acute alcohol intoxication. Please refrain from the use of alcohol and follow- up with your primary care provider. Please also return to the emergency room should you have any other concerning symptoms. Referrals: FARRUKH CHUNG, [Primary Care Provider] - Follow up as needed
[2018-09-10 03:19] LABS: ALANINE AMINOTRANSFERASE 30 U/L (9-52); ALBUMIN 4.6 g/dL (3.5-5.0); ALCOHOL 128 mg/dL (NONE DETECTED); ALKALINE PHOSPHATASE 52 U/L (38-126); ANION GAP 12 (5-19); ASPARTATE AMINO TRANSFERASE 31 U/L (14-36); BILIRUBIN,DIRECT 0.3 mg/dL (0.0-0.4); BILIRUBIN,TOTAL 0.5 mg/dL (0.2-1.3); BLOOD UREA NITROGEN 9 mg/dL (7-20); CALCIUM 10.2 mg/dL (8.4-10.2); CARBON DIOXIDE 24 mmol/L (22-30); CHLORIDE 107 mmol/L (98-107); GLUCOSE 80 mg/dL (75-110); POTASSIUM 3.9 mmol/L (3.6-5.0); SODIUM 143.4 mmol/L (137-145); TOTAL PROTEIN 7.7 g/dL (6.3-8.2)
[2018-09-10 03:20] LABS: ACETAMINOPHEN < 10 ug/mL (10-30); SALICYLATE < 1.0 mg/dL (2.0-20.0)
[2018-09-10 03:22] LABS: APPEARANCE,URINE CLEAR; BILIRUBIN,URINE NEGATIVE (NEGATIVE); COLOR,URINE YELLOW; GLUCOSE, URINE NEGATIVE (NEGATIVE); KETONES,URINE NEGATIVE (NEGATIVE); LEUKOCYTE ESTERASE,URINE NEGATIVE (NEGATIVE); NITRITE,URINE NEGATIVE (NEGATIVE); PROTEIN,URINE NEGATIVE (NEGATIVE); URINE SPECIFIC GRAVITY 1.009; UROBILINOGEN,URINE NEGATIVE mg/dL (<2.0)
[2018-09-10 03:34] LABS: URINE AMPHETAMINES SCREEN UNCONFIRMED POSITIVE; URINE BARBITURATES SCREEN NEGATIVE; URINE BENZODIAZEPINES SCREEN UNCONFIRMED POSITIVE; URINE COCAINE SCREEN NEGATIVE; URINE MARIJUANA (THC) SCREEN UNCONFIRMED POSITIVE; URINE METHADONE SCREEN UNCONFIRMED POSITIVE; URINE PHENCYCLIDINE SCREEN NEGATIVE
[2018-09-10 03:41] LABS: ARTERIAL BLOOD BASE EXCESS -1.6 mmol/L; ARTERIAL BLOOD H2CO3 1.06 mmol/L (1.05-1.35); ARTERIAL BLOOD HCO3 22.3 mmol/L (20-24); ARTERIAL BLOOD O2 SATURATION 97.4 % (94-98); ARTERIAL BLOOD PCO2 35.1 mmHg (35-45); ARTERIAL BLOOD PH 7.42 (7.35-7.45); ARTERIAL BLOOD PO2 95.3 mmHg (80-100); ARTERIAL BLOOD TOTAL CO2 23.3 mmol/L (21-25)
[2018-09-10 03:42] LABS: ARTERIAL BLOOD FIO2 ROOM AIR
[2018-09-10] MEDS ORDERED: NALOXONE HCL INJ/PF 0.4 MG/1 ML SDV IV ONE (03:46)
[2018-09-10] MEDS ORDERED: NALOXONE HCL INJ/PF 0.4 MG/1 ML SDV INJ ONE (03:52)
--- NOTE | 2018-09-10 04:35 | RADIOLOGY REPORT (SQ) ---
CLINICAL HISTORY: poss trauma? UNRESPONSIVE COMPARISON: None. TECHNIQUE: CT CERVICAL SPINE WITHOUT IV CONTRAST on 09/10/2018 2:53 AM CDT This exam was performed according to our departmental dose-optimization program, which includes automated exposure control, adjustment of the mA and/or kV according to patient size and/or use of iterative reconstruction technique. FINDINGS: There is no acute fracture. Alignment is anatomic. Disc spaces are maintained. Vertebral body heights are preserved. Soft tissues are unremarkable. IMPRESSION: No acute fracture or subluxation.
--- NOTE | 2018-09-10 04:36 | RADIOLOGY REPORT (SQ) ---
CLINICAL HISTORY: low spo2 COMPARISON: December 27, 2015. TECHNIQUE: XR CHEST 1 VIEW 09/10/2018 3:08 AM CDT FINDINGS: Cardiac silhouette is normal in size. Lungs are clear without consolidation, atelectasis, mass or edema. There is no pleural effusion. There is no pneumothorax. There are no acute osseous findings. IMPRESSION: Clear lungs.
--- NOTE | 2018-09-10 04:38 | RADIOLOGY REPORT (SQ) ---
EXAM DESCRIPTION: RadLex: CT HEAD WITHOUT IV CONTRAST CLINICAL HISTORY: 33 years Female; poss trauma? UNRESPONSIVE TECHNIQUE: Noncontrast CT head. All CT scans at this facility use dose modulation, iterative reconstruction, and/or weight based dosing when appropriate to reduce radiation dose to as low as reasonably achievable. COMPARISON: None. FINDINGS: Romero matter, white matter, ventricles, and cisterns are within normal limits. No acute hemorrhage or mass effect. Visualized portions of paranasal sinuses and mastoids are clear. Visualized portions of the calvarium are within normal limits. IMPRESSION: 1. No acute intracranial findings.
[2018-09-10] MEDS ORDERED: ACETAMINOPHEN 325 MG TABLET PO ONE (05:31)
--- NOTE | 2018-09-10 05:44 | ER Document Report ---
Doctor's Note Notes: 09/10/18 05:43 Patient seen in conjunction with physician assistant spa manager. Please see her note correlate with mine. In short, the patient admits to drinking alcohol, using Subutex, Adderall, benzodiazepines, marijuana. She states she was recently in rehab for alcohol. She was not trying to hurt herself. She was brought to the emergency department by her significant other who dropped her off. Patient has a GCS of 13. Vital signs are stable. She is drowsy but easily arouses with verbal stimuli. She moves all 4 extremities spontaneously heart is regular rate and rhythm, lungs are clear to auscultation bilaterally. No overt signs of trauma. Laboratory investigations and imaging are largely unremarkable. During the course of her stay the patient became more sober. She was able to answer questions appropriately, walk around the department without any issue. Patient will be discharged. She is warned about the dangers associated with polysubstance abuse. She voiced understanding to this will be discharged. 09/10/18 05:44
[2018-09-10 05:46] VITALS: BP 107/60
--- NOTE | 2018-09-10 18:51 | EKG REPORT ---
SEVERITY:- NORMAL ECG - SINUS RHYTHM : Confirmed by: Sunita Bull 10-Sep-2018 18:50:34
== END 2018-09-10 06:00 | disposition home or self-care (01) ==
LOC: ER 02:49
DX: R40.4 Transient alteration of awareness (principal); F10.920 Alcohol use, unspecified with intoxication, uncomplicated; F19.10 Other psychoactive substance abuse, uncomplicated
CPT/HCPCS: 93005; 99285; 96374; 36415; 80307 ×4; 82803; 84703; 85025; 80053; 81001; 71045; 70450; 72125; 93010; J2310

== ENCOUNTER 2018-09-26 10:20 | Emergency (ER) | payer SELFPAY ==
[2018-09-26] MEDS ORDERED: ONDANSETRON 4 MG TAB.RAPDIS PO ONE (11:10)
--- NOTE | 2018-09-26 11:12 | ER Document Report ---
ED Medical Screen (RME) - General Chief Complaint: Urinary Problem Stated Complaint: POSSIBLE URINARY ISSUES Time Seen by Provider: 09/26/18 11:07 Primary Care Provider: FARRUKH CHUNG DO [Primary Care Provider] - Follow up as needed Mode of Arrival: Ambulatory Information source: Patient Notes: Patient presents to the emergency department with complaints of generalized abdominal pain flank pain that started 2 days ago. Reports also urine smelling very foul, pain with void. Reports her stomach is very bloated. History of endometriosis. Also recent history of surgery to her vaginal canal for cyst, twice this year. Denies fever vomiting diarrhea but reports lots of nausea. Denies vaginal discharge. TRAVEL OUTSIDE OF THE [place] IN LAST 30 DAYS: No - Related Data Allergies/Adverse Reactions: No Known Allergies Allergy (Verified 09/26/18 10:26) Past Medical History - Past Medical History Cardiac Medical History: Reports: Hx Heart Murmur Denies: Hx Coronary Artery Disease, Hx Heart Attack, Hx Hypertension Pulmonary Medical History: Denies: Hx Asthma, Hx Bronchitis, Hx COPD, Hx Pneumonia Neurological Medical History: Reports: Hx Migraine. Denies: Hx Cerebrovascular Accident, Hx Seizures Renal/ Medical History: Denies: Hx Peritoneal Dialysis Musculoskeltal Medical History: Denies Hx Arthritis, Reports Hx Musculoskeletal Trauma Past Surgical History: Reports: Hx Oral Surgery - wisdom teeth - Immunizations Hx Diphtheria, Pertussis, Tetanus Vaccination: Yes Physical Exam - Vital signs Vitals: Temp Pulse Resp BP Pulse Ox 98.1 F 91 16 113/68 99 09/26/18 10:32 09/26/18 10:32 09/26/18 10:32 09/26/18 10:32 09/26/18 10:32 Course - Vital Signs Vital signs: Temp Pulse Resp BP Pulse Ox 98.1 F 91 16 113/68 99 09/26/18 10:32 09/26/18 10:32 09/26/18 10:32 09/26/18 10:32 09/26/18 10:32 Doctor's Discharge - Discharge Referrals: FARRUKH CHUNG DO [Primary Care Provider] - Follow up as needed
[2018-09-26 11:41] LABS: ABSOLUTE BASOPHILS # (AUTO) 0.1 10^3/uL (0.0-0.2); ABSOLUTE EOSINOPHILS # (AUTO) 0.2 10^3/uL (0.0-0.6); ABSOLUTE LYMPHOCYTES (AUTO) 1.8 10^3/uL (0.5-4.7); ABSOLUTE MONOCYTES (AUTO) 0.6 10^3/uL (0.1-1.4); ABSOLUTE NEUT (AUTO) 8.7 10^3/uL (1.7-8.2); BASOPHILS % (AUTO) 0.6 % (0-2); EOSINOPHILS % (AUTO) 1.4 % (0-6); HEMATOCRIT 43.6 % (36.0-47.0); HEMOGLOBIN 14.6 g/dL (12.0-15.5); LYMPHOCYTES % (AUTO) 15.9 % (13-45); MEAN CORPUSCULAR HEMOGLOBIN 30.6 pg (27.0-33.4); MEAN CORPUSCULAR HGB CONC 33.5 g/dL (32.0-36.0); MEAN CORPUSCULAR VOLUME 92 fl (80-97); MONOCYTES % (AUTO) 5.4 % (3-13); PLATELET COUNT 334 10^3/uL (150-450); RED BLOOD COUNT 4.77 10^6/uL (3.72-5.28); RED CELL DISTRIBUTION WIDTH 12.5 % (11.5-14.0); SEGMENTED NEUTROPHILS % (AUTO) 76.7 % (42-78); TOTAL CELLS COUNTED % (AUTO) 100 %; WHITE BLOOD COUNT 11.4 10^3/uL (4.0-10.5)
[2018-09-26 11:54] LABS: ALANINE AMINOTRANSFERASE 20 U/L (9-52); ALBUMIN 4.6 g/dL (3.5-5.0); ALKALINE PHOSPHATASE 67 U/L (38-126); ANION GAP 9 (5-19); ASPARTATE AMINO TRANSFERASE 20 U/L (14-36); BILIRUBIN,DIRECT 0.3 mg/dL (0.0-0.4); BILIRUBIN,TOTAL 0.6 mg/dL (0.2-1.3); BLOOD UREA NITROGEN 9 mg/dL (7-20); CALCIUM 10.4 mg/dL (8.4-10.2); CARBON DIOXIDE 29 mmol/L (22-30); CHLORIDE 102 mmol/L (98-107); GLUCOSE 90 mg/dL (75-110); POTASSIUM 4.4 mmol/L (3.6-5.0); SODIUM 140.3 mmol/L (137-145); TOTAL PROTEIN 7.9 g/dL (6.3-8.2)
[2018-09-26 12:20] LABS: AMORPHOUS SEDIMENT,URINE TRACE /HPF; APPEARANCE,URINE CLOUDY; BILIRUBIN,URINE NEGATIVE (NEGATIVE); COLOR,URINE YELLOW; GLUCOSE, URINE NEGATIVE (NEGATIVE); KETONES,URINE NEGATIVE (NEGATIVE); LEUKOCYTE ESTERASE,URINE LARGE (NEGATIVE); NITRITE,URINE NEGATIVE (NEGATIVE); PROTEIN,URINE NEGATIVE (NEGATIVE); URINE SPECIFIC GRAVITY 1.006; UROBILINOGEN,URINE NEGATIVE mg/dL (<2.0)
[2018-09-26] MEDS ORDERED: CEFTRIAXONE INJ 1000 MG VIAL IM ONE (12:32)
[2018-09-26] MEDS ORDERED: LIDOCAINE 1% INJ (10 MG/ML) 10 ML MDV INJ ONE (12:32)
--- NOTE | 2018-09-26 12:43 | ER Document Report ---
ED GI/ - General Chief Complaint: Urinary Problem Stated Complaint: POSSIBLE URINARY ISSUES Time Seen by Provider: 09/26/18 11:07 Primary Care Provider: FARRUKH CHUNG DO [NO LOCAL MD] - Follow up as needed Mode of Arrival: Ambulatory Notes: Patient says for the past 2 days she is noticed that her urine was cloudy looking and smelling badly, like a sulfa smell. Yesterday she noticed some pain in her lower back and today she has pain in the lower anterior suprapubic region of the abdomen. She is been nauseated but not vomiting. No diarrhea. Has a history of UTIs with similar symptoms. Has not noted any blood in her urine. Says she has had a low-grade fever for the past 2 days. Last menstrual cycle was 2 weeks ago. Not on any control. Patient's had a laparoscopic procedure for endometriosis. TRAVEL OUTSIDE OF THE [place] IN LAST 30 DAYS: No - Related Data Allergies/Adverse Reactions: No Known Allergies Allergy (Verified 09/26/18 10:26) Past Medical History - General Information source: Patient - Social History Smoking Status: Current Every Day Smoker Chew tobacco use (# tins/day): No Frequency of alcohol use: Occasional Drug Abuse: None Family History: Reviewed & Not Pertinent, Other Patient has suicidal ideation: No Patient has homicidal ideation: No - Past Medical History Cardiac Medical History: Reports: Hx Heart Murmur Neurological Medical History: Reports: Hx Migraine Musculoskeletal Medical History: Denies Hx Arthritis, Reports Hx Musculoskeletal Trauma Past Surgical History: Reports: Hx Oral Surgery - wisdom teeth - Immunizations Hx Diphtheria, Pertussis, Tetanus Vaccination: Yes Review of Systems - Review of Systems Notes: CONSTITUTIONAL : Denies fever. CARDIOVASCULAR: Denies chest pain. RESPIRATORY: Denies cough, chest congestion, or shortness of breath. GASTROINTESTINAL: See HPI. GENITOURINARY: Denies difficulty or painful urinating, urinary frequency, blood in urine. Physical Exam - Vital signs Vitals: Temp Pulse Resp BP Pulse Ox 98.1 F 91 16 113/68 99 09/26/18 10:32 09/26/18 10:32 09/26/18 10:32 09/26/18 10:32 09/26/18 10:32 Interpretation: Normal. No: Febrile Notes: PHYSICAL EXAMINATION: GENERAL: Well-appearing, no acute distress. Anxious. Afebrile. HEAD: Atraumatic, normocephalic. NECK: Normal range of motion, supple. LUNGS: Breath sounds clear and equal bilaterally. HEART: Regular rate and rhythm without murmurs heard. Back: Mild tenderness to palpate and percuss in the paralumbar muscles bilaterally. ABDOMEN: Soft, minor tenderness suprapubic region. No guarding and no rebound. No tenderness in the right lower quadrant. Course - Re-evaluation Re-evalutation: 09/26/18 19:21 Urinalysis looks like a definite UTI. Other labs unremarkable. test negative. Patient was given a gram of Rocephin IM. - Vital Signs Vital signs: Temp Pulse Resp BP Pulse Ox 98.3 F 79 16 109/66 99 09/26/18 13:45 09/26/18 13:45 09/26/18 13:45 09/26/18 13:45 09/26/18 13:45 - Laboratory Result Diagrams: 09/26/18 11:20 09/26/18 11:20 Laboratory results interpreted by me: 09/26/18 09/26/18 09/26/18 11:20 11:20 11:35 WBC 11.4 H Absolute Neutrophils 8.7 H Calcium 10.4 H Urine Blood SMALL H Ur Leukocyte Esterase LARGE H Discharge - Discharge Clinical Impression: UTI (urinary tract infection) Condition: Stable Disposition: HOME, SELF-CARE Additional Instructions: URINARY TRACT INFECTION: Your evaluation indicates that you have a urinary tract infection. This is due to germs growing in the bladder. This is a common problem. This infection usually responds quickly to antibiotics. Your antibiotic should be taken exactly as prescribed. Drink plenty of fluids -- three to four quarts a day. Occasionally, a bladder anesthetic will be prescribed to help stop the feeling of urgency until the antibiotic has a chance to clear the infection. This may cause your urine to be dark orange. Certain urine infections require a culture. If the doctor obtained a culture, the results will be back in two days. You should call to see if a change in treatment is needed. A repeat urinalysis after you finish treatment is often recommended. The physician will let you know if further testing is required. Call the doctor if you develop fever, chills, flank pain, inability to urinate, or blood in the urine. ANTIBIOTIC THERAPY: You have been given an antibiotic prescription. It's important that you take all the medication, unless instructed otherwise by your physician. Failure to complete the entire course can result in relapse of your condition. Common side effects of antibiotics include nausea, intestinal cramping, or diarrhea. Women may develop vaginal yeast infections, and babies can get yeast (thrush) in the mouth following the use of antibiotics. Contact your physician if you develop significant side effects from this medication. Allergy to this antibiotic can result in hives, wheezing, faintness, or itching. If symptoms of allergy occur, stop the medication and call the doctor. Rocephin You have been given an injection of an antibiotic called Rocephin (ceftriaxone). Sometimes the injection must be combined with antibiotic pills. For some infections, such as an uncomplicated ear infection, Rocephin provides all the antibiotic that's needed. The antibiotic will be in your body for about two days. For serious infections, we usually repeat doses of Rocephin daily. Side effects are very unusual following a shot. Women may develop vaginal yeast infections, and babies can get yeast (thrush) in the mouth following the use of antibiotics. Contact your physician if you have symptoms with this medication. Allergy to this antibiotic can result in hives, wheezing, faintness, or itching. If symptoms of allergy occur, call the doctor at once. CEPHALEXIN: The antibiotic you've been prescribed is a member of the cephalosporin class. This type of antibiotic covers a wide variety of infections, including those of the skin, lungs, and urinary tract. It's useful for staph infections. This antibiotic is slightly similar to the penicillin family. In rare cases, a person who is allergic to penicillin will also be allergic to this medication. If you have had a severe allergic reaction to penicillin, and have not taken this antibiotic since that time, notify your doctor. Antibiotics which cover many germs ("broad spectrum" antibiotics) are more likely to cause diarrhea or "yeast" infections. Women prone to vaginal yeast problems may suffer an attack after taking this antibiotic. In infants, oral thrush (white spots "stuck" on the cheek) or yeast diaper rash may result. See your doctor if these problems occur. Call at once if you develop itching, hives, shortness of breath, or lightheadedness. Fluconazole Fluconazole (Diflucan) is an antifungal drug. It is useful for serious fungal infections, but is also excellent for oral or vaginal yeast infections. Diflucan interacts with some medicines. This is a concern if you are taking anticoagulants (such as Coumadin), phenytoin (Dilantin), cyclosporin, or oral hypoglycemics (such as tolbutamide, Orinase, glipizide, Glucotrol, glyburide, DiaBeta, Glynase, and Micronase). Be sure the doctor knows if you are taking one of these medicines. We don't know how Diflucan affects . If you are planning to become , discuss this with your doctor. Diflucan has few side effects. Minor side effects may include nausea, headache, or diarrhea. Call the doctor if you develop a skin rash, shortness of breath, or other new symptoms. Antinausea Medication You have been given a medication to suppress nausea and vomiting. This type of medication can be given as a shot, pill, or suppository. It will usually last for many hours. Pills and shots usually last six to eight hours, suppositories last about 12 hours. For the typical illness, only one or two doses of the medication may be necessary. Mild lightheadedness may occur. This type of medicine can cause drowsiness. Do not drive or operate dangerous machinery while under its influence. Do not mix with alcohol. See your doctor at once if you have muscle spasms or tightness, or uncontrollable motions (particularly of the neck, mouth, or jaw). Persistent vomiting or severe lightheadedness should also be evaluated by the physician. FOLLOW-UP CARE: If you have been referred to a physician for follow-up care, call the physicians office for an appointment as you were instructed or within the next two days. If you experience worsening or a significant change in your symptoms, notify the physician immediately or return to the Emergency Department at any time for re-evaluation. Prescriptions: Cephalexin Monohydrate [Keflex 500 mg Capsule] 500 mg PO TID 7 Days capsule Fluconazole [Diflucan] 150 mg PO ONCE PRN #1 tablet PRN Reason: Ondansetron [Zofran Odt 4 mg Tablet] 1 - 2 tab PO Q4H PRN #12 tab.rapdis PRN Reason: For Nausea/Vomiting Referrals: FARRUKH CHUNG DO [NO LOCAL MD] - Follow up as needed
[2018-09-26 13:47] VITALS: BP 109/66
== END 2018-09-26 13:50 | disposition home or self-care (01) ==
LOC: ER 10:20
DX: N39.0 Urinary tract infection, site not specified (principal); R11.0 Nausea; R10.30 Lower abdominal pain, unspecified; M54.5 Low back pain; F17.200 Nicotine dependence, unspecified, uncomplicated
CPT/HCPCS: 99283; 36415; 87086; 83690; 85025; 87088; 80053; 81001; 87186; S0119; J0696

== ENCOUNTER 2019-01-24 13:19 | Emergency (ER) | payer SELFPAY ==
[2019-01-24 13:24] VITALS: BP 117/64
[2019-01-24 13:56] LABS: APPEARANCE,URINE CLOUDY; BILIRUBIN,URINE NEGATIVE (NEGATIVE); COLOR,URINE STRAW; GLUCOSE, URINE NEGATIVE (NEGATIVE); KETONES,URINE NEGATIVE (NEGATIVE); URINE SPECIFIC GRAVITY 1.015
[2019-01-24 13:57] LABS: LEUKOCYTE ESTERASE,URINE LARGE (NEGATIVE); NITRITE,URINE NEGATIVE (NEGATIVE); PROTEIN,URINE NEGATIVE (NEGATIVE); UROBILINOGEN,URINE NEGATIVE mg/dL (<2.0)
[2019-01-24] MEDS ORDERED: LIDOCAINE 1% INJ-PF (10 MG/ML) 30 ML SDV INJ ONE (14:00)
[2019-01-24] MEDS ORDERED: CEFTRIAXONE INJ 250 MG VIAL IM ONE (14:00)
[2019-01-24] MEDS ORDERED: AZITHROMYCIN 250 MG TABLET PO ONE (14:00)
--- NOTE | 2019-01-24 14:04 | ER Document Report ---
HPI - HPI Time Seen by Provider: 01/24/19 14:00 Pain Level: 3 Notes: Patient is a 33-year-old female who presents complaining of chronic issues with dysuria. Patient states that she has had some discomfort with urinating since her last visit 4 months ago but overall has had issues over the past year after she had a cyst surgery performed in the vaginal area. Patient states that when she was here last in September she did have a urinary infection at that time. Patient states that she does have a slight vaginal odor without any significant pain or discomfort. She does not have any concern of STD or STI but is open to testing and pretreatment. She is able to eat and drink without difficulty. She is having normal bowel movements. No other vaginal bleeding or discharge. Denies any headache, fever, URI, sore throat, chest pain, palpitations, syncope, cough, shortness of breath, wheeze, dyspnea, abdominal pain, nausea/vomiting/diarrhea, or rash. - ROS Systems Reviewed and Negative: Yes All other systems reviewed and negative - REPRODUCTIVE Reproductive: DENIES: : Past Medical History - Social History Smoking Status: Never Smoker Family History: Reviewed & Not Pertinent, Other - Past Medical History Cardiac Medical History: Reports: Hx Heart Murmur Denies: Hx Coronary Artery Disease, Hx Heart Attack, Hx Hypertension Pulmonary Medical History: Denies: Hx Asthma, Hx Bronchitis, Hx COPD, Hx Pneumonia Neurological Medical History: Reports: Hx Migraine. Denies: Hx Cerebrovascular Accident, Hx Seizures Renal/ Medical History: Denies: Hx Peritoneal Dialysis Musculoskeletal Medical History: Denies Hx Arthritis, Reports Hx Musculoskeletal Trauma Past Surgical History: Reports: Hx Oral Surgery - wisdom teeth - Immunizations Hx Diphtheria, Pertussis, Tetanus Vaccination: Yes Vertical Provider Document - CONSTITUTIONAL Agree With Documented VS: Yes Notes: PHYSICAL EXAMINATION: GENERAL: Well-appearing, well-nourished and in no acute distress. LUNGS: Breath sounds clear to auscultation bilaterally and equal. No wheezes rales or rhonchi. HEART: Regular rate and rhythm without murmurs, rubs, gallops. ABDOMEN: Soft, nontender, nondistended abdomen. No guarding, no rebound. Normal bowel sounds present. No CVA tenderness bilaterally. Musculoskeletal: FROM to passive/active. Strength 5+/5. Extremities: No cyanosis, clubbing, or edema b/l. Peripheral pulses 2+. Capillary refill less than 3 seconds. NEUROLOGICAL: Normal speech, normal gait. PSYCH: Normal mood, normal affect. SKIN: Warm, Dry, normal turgor, no rashes or lesions noted. - INFECTION CONTROL TRAVEL OUTSIDE OF THE [place] IN LAST 30 DAYS: No Course - Re-evaluation Re-evalutation: 01/24/19 14:32 Patient is an afebrile, well-hydrated, 33-year-old female who presents to the ED with dysuria, yeast infection, and BV. Vitals are acceptable without any significant tachycardia, tachypnea, or hypoxia. PE is otherwise unremarkable. Urinalysis and hCG are unremarkable for any acute pathology. See wet mount results. Chlam/gonorrhea tests are pending. Pt received zithromax/rocephin. Patient is nontoxic-appearing is tolerating p.o. without any difficulties. Abd otherwise soft/nontender. No other labs or imaging warranted at this time based on H&P. Low suspicion/risk for acute appendicitis, bowel obstruction, acute cholecystitis, acute cholangitis, perforated diverticulitis, incarcerated hernia, pancreatitis, perforated ulcer, peritonitis, sepsis, pelvic inflammatory disease, ectopic , tubo-ovarian abscess, ovarian torsion, or other systemic emergent condition at this time. Patient is aware that her condition can change from initial presentation and she needs to monitor symptoms closely and seek medical attention if any acute changes. I will send her home with prescription for Flagyl/doxycycline. The doxy as precautionary for the urine until culture comes back and will help cover any other atypicals from the vaginal canal. Conservative measures otherwise for symptoms. Recheck with your PCM/OBGYN in 3-5 days. Return to the ED with any worsening/concerning symptoms otherwise as reviewed in discharge. Patient is in agreement. - Vital Signs Vital signs: Temp Pulse Resp BP Pulse Ox 99.0 F 92 20 117/64 99 01/24/19 13:23 01/24/19 13:23 01/24/19 13:23 01/24/19 13:23 01/24/19 13:23 - Laboratory Laboratory results interpreted by me: 01/24/19 13:35 Ur Leukocyte Esterase LARGE H Discharge - Discharge Clinical Impression: Vaginal yeast infection, BV (bacterial vaginosis), Dysuria Condition: Stable Disposition: HOME, SELF-CARE Instructions: Doxycycline ([facility]), Metronidazole ([facility]), Vaginal Yeast Infection ([facility]) Additional Instructions: Maintain fluid intake Proper hygienic technique Keep the skin clean Safe sexual practices with condoms everytime Tylenol/ibuprofen as needed Check in with the health department this week for further testing if warranted Your chlamydia/gonorrhea tests are pending and you will be notified if positive results; you may call in 1 day for the results as well F/u with your PCM/OBGYN in 3-5 days for a recheck Consider consult with urology Return to the ED with any development of PHAN/fever, trouble with vision, eye redness, worsening pain, urethral discharge, urinary retention, blood in the urine, flank pain, abdominal pain, n/v, Chest Pain, shortness of breath, joint pains, trouble breathing, or any other worsening/concerning symptoms as needed otherwise. Prescriptions: Fluconazole [Diflucan] 150 mg PO ONCE PRN #1 tablet PRN Reason: Doxycycline Hyclate 100 mg PO BID #14 capsule Metronidazole [Flagyl] 500 mg PO BID #14 tablet Referrals: [facility] [Provider Group] - Follow up as needed [facility] [Provider Group] - Follow up as needed
[2019-01-24 14:20] LABS: BACTERIA (WET MOUNT) 3+ BACTERIA SEEN; EPITHELIALS (WET MOUNT) 3+ EPITHELIALS SEEN; T.VAGINALIS (WET MOUNT) NO TRICHOMONAS SEEN; WBCS (WET MOUNT) 1+ WBCS SEEN; YEAST (WET MOUNT) YEAST SEEN
[2019-01-24] MEDS ORDERED: FLUCONAZOLE 100 MG TABLET PO ONE (14:49)
[2019-01-24 15:45] LABS: CHLAM PCR NOT DETECTED (NOT DETECT)
== END 2019-01-24 15:10 | disposition home or self-care (01) ==
LOC: ER 13:19
DX: N76.0 Acute vaginitis (principal); B96.89 Other specified bacterial agents as the cause of diseases classified elsewhere; B37.3 Candidiasis of vulva and vagina; R30.0 Dysuria
CPT/HCPCS: 99283; 96372; 87086; 87210; 81025; 87088; 81001; 87186; 87491; 87591; J3490; J0696

== ENCOUNTER 2019-02-12 20:55 | Emergency (ER) | payer SELFPAY ==
--- NOTE | 2019-02-12 21:14 | ER Document Report ---
ED Medical Screen (RME) - General Chief Complaint: Abdominal Pain Stated Complaint: RIGHT SIDE ABDOMINAL AND BACK PAIN Time Seen by Provider: 02/12/19 21:11 Mode of Arrival: Ambulatory Information source: Patient Notes: This 33-year-old female presented to ED for complaint of right upper quadrant/flank pain since 11 AM. She states her last menstrual period was January 02 2 days. She states she had 2+ home test. She states she has been having pain since cramping on the right flank and abdomen. Patient states her only past medical history is endometriosis. She has had laparos copies for endometriosis. She states she smokes 1/2 pack a day does not drink use drugs or work. She states she lives with roommates. She is alert oriented respirations regular and unlabored speaking in full sentences walks with even steady gait. I have greeted and performed a rapid initial assessment of this patient. A comprehensive ED assessment and evaluation of the patient, analysis of test results and completion of medical decision making process will be conducted by an additional ED providers. TRAVEL OUTSIDE OF THE [place] IN LAST 30 DAYS: No - Related Data Allergies/Adverse Reactions: No Known Allergies Allergy (Verified 09/26/18 10:26) Past Medical History - Social History Chew tobacco use (# tins/day): No Frequency of alcohol use: None - Past Medical History Cardiac Medical History: Reports: Hx Heart Murmur Denies: Hx Coronary Artery Disease, Hx Heart Attack, Hx Hypertension Pulmonary Medical History: Denies: Hx Asthma, Hx Bronchitis, Hx COPD, Hx Pneumonia Neurological Medical History: Reports: Hx Migraine. Denies: Hx Cerebrovascular Accident, Hx Seizures Renal/ Medical History: Denies: Hx Peritoneal Dialysis Musculoskeltal Medical History: Denies Hx Arthritis, Reports Hx Musculoskeletal Trauma Past Surgical History: Reports: Hx Oral Surgery - wisdom teeth - Immunizations Hx Diphtheria, Pertussis, Tetanus Vaccination: Yes Physical Exam - Vital signs Vitals: Temp Pulse Resp BP Pulse Ox 98.5 F 86 18 132/50 H 100 02/12/19 21:03 02/12/19 21:03 02/12/19 21:03 02/12/19 21:03 02/12/19 21:03 Course - Vital Signs Vital signs: Temp Pulse Resp BP Pulse Ox 98.5 F 86 18 132/50 H 100 02/12/19 21:03 02/12/19 21:03 02/12/19 21:03 02/12/19 21:03 02/12/19 21:03
[2019-02-12 21:41] LABS: APPEARANCE,URINE CLEAR; BILIRUBIN,URINE NEGATIVE (NEGATIVE); COLOR,URINE STRAW; GLUCOSE, URINE NEGATIVE (NEGATIVE); KETONES,URINE NEGATIVE (NEGATIVE); LEUKOCYTE ESTERASE,URINE NEGATIVE (NEGATIVE); NITRITE,URINE NEGATIVE (NEGATIVE); PROTEIN,URINE NEGATIVE (NEGATIVE); URINE SPECIFIC GRAVITY 1.002; UROBILINOGEN,URINE NEGATIVE mg/dL (<2.0)
[2019-02-12] MEDS ORDERED: MORPHINE SULFATE 10 MG/ML INJ IV ONE (22:05)
[2019-02-12] MEDS ORDERED: NORMAL SALINE 1000 ML 1,000 ML IV ONE (22:05)
[2019-02-12] MEDS ORDERED: PANTOPRAZOLE SODIUM 40 MG VIAL IV ONE (22:05)
--- NOTE | 2019-02-12 22:08 | ER Document Report ---
ED General - General Chief Complaint: Abdominal Pain Stated Complaint: RIGHT SIDE ABDOMINAL AND BACK PAIN Time Seen by Provider: 02/12/19 21:11 Mode of Arrival: Ambulatory TRAVEL OUTSIDE OF THE [place] IN LAST 30 DAYS: No - HPI Notes: This is a 33-year-old female who presents today with complaint of epigastric and right upper quadrant pain for the past 3 to 4 days. Patient states that her pain got worse today. She also describes some diarrhea over the past 3 days. She has some nausea but no vomiting. She denies any fever or chills. There are no obvious aggravating or relieving factors. Patient also states that she is 12 days late for her. And wonders if she is . She has a positive home test at home. She denies any lower abdominal pain. No pelvic pain. No vaginal bleeding or discharge. No FINISHING ROOM OPERATOR type problems. - Related Data Allergies/Adverse Reactions: No Known Allergies Allergy (Verified 09/26/18 10:26) Past Medical History - General Information source: Patient - Social History Smoking Status: Current Every Day Smoker Chew tobacco use (# tins/day): No Frequency of alcohol use: None Family History: Reviewed & Not Pertinent, Other Patient has suicidal ideation: No Patient has homicidal ideation: No - Past Medical History Cardiac Medical History: Reports: Hx Heart Murmur Denies: Hx Coronary Artery Disease, Hx Heart Attack, Hx Hypertension Pulmonary Medical History: Denies: Hx Asthma, Hx Bronchitis, Hx COPD, Hx Pneumonia Neurological Medical History: Reports: Hx Migraine. Denies: Hx Cerebrovascular Accident, Hx Seizures Renal/ Medical History: Denies: Hx Peritoneal Dialysis Musculoskeletal Medical History: Denies Hx Arthritis, Reports Hx Musculoskeletal Trauma Past Surgical History: Reports: Hx Oral Surgery - wisdom teeth - Immunizations Hx Diphtheria, Pertussis, Tetanus Vaccination: Yes Review of Systems - Review of Systems Cardiovascular: denies: Chest pain, Palpitations Gastrointestinal: Abdominal pain, Diarrhea, Nausea. denies: Vomiting -: Yes All other systems reviewed and negative Physical Exam - Vital signs Vitals: Temp Pulse Resp BP Pulse Ox 98.5 F 86 18 132/50 H 100 02/12/19 21:03 02/12/19 21:03 02/12/19 21:03 02/12/19 21:03 02/12/19 21:03 - General General appearance: Appears well, Alert - Respiratory Respiratory status: No respiratory distress Chest status: Nontender Breath sounds: Normal Chest palpation: Normal - Cardiovascular Rhythm: Regular Heart sounds: Normal auscultation Murmur: No - Abdominal Inspection: Normal Distension: No distension Bowel sounds: Normal Tenderness: Tender - There is epigastric and right upper quadrant tenderness. No guarding or rebound. There is no lower abdominal pain or tenderness. Organomegaly: No organomegaly - Back Back: Normal, Nontender - Neurological Neuro grossly intact: Yes Cognition: Normal Orientation: AAOx4 Heri Coma Scale Eye Opening: Spontaneous [place] Coma Scale Verbal: Oriented Heri Coma Scale Motor: Obeys Commands Heri Coma Scale Total: 15 Speech: Normal Motor strength normal: LUE, RUE, LLE, RLE Sensory: Normal - Psychological Associated symptoms: Normal affect, Normal mood - Skin Skin Temperature: Warm Skin Moisture: Dry Skin Color: Normal Course - Re-evaluation Re-evalutation: 02/12/19 22:08 Differential diagnosis includes gastritis versus cholelithiasis versus cholecystitis. Will get ultrasound. Will check with labs. 2. Will check test. Patient has no FINISHING ROOM OPERATOR symptoms, so even if she is , it will be no indication for further work-up. 02/13/19 00:08 Patient name but related. Patient is doing well. 01:21 Patient reevaluated. She is doing well. test is positive. Once again, she does not have any lower abdominal/pelvic pain, vaginal discharge or vaginal bleeding. There is no indication for pelvic work-up. There is no clinical suspicion for problems. She does well with the family she is . I will put on vitamins. Referral to CHILD DEVELOPMENT PROFESSOR for care. She is stable for discharge. Follow-up discussed with patient. - Vital Signs Vital signs: Temp Pulse Resp BP Pulse Ox 98.5 F 86 18 132/50 H 100 02/12/19 21:03 02/12/19 21:03 02/12/19 21:03 02/12/19 21:03 02/12/19 21:03 - Laboratory Result Diagrams: 02/12/19 23:14 02/12/19 23:14 Laboratory results interpreted by me: 02/12/19 02/12/19 23:14 23:14 WBC 14.6 H Absolute Neuts (auto) 8.4 H Absolute Lymphs (auto) 5.0 H Beta HCG, Quant 20297.00 H Discharge - Discharge Clinical Impression: Biliary colic Qualifiers: Weeks of gestation: unspecified Qualified Code(s): Z34.90 - Encounter for supervision of normal , unspecified, unspecified trimester Condition: Good Disposition: HOME, SELF-CARE Instructions: Gallbladder Disease ([facility]), Low-Fat Diet ([facility]), ([facility]) Prescriptions: Esomeprazole Mag Trihydrate [Nexium] 40 mg PO DAILY 30 Days #30 capsule. Promethazine HCl [Phenergan 25 mg Tablet] 1 tab PO Q6H PRN #15 tablet PRN Reason: Pnv No.121/Iron/Folic Acid [ Multivitamin Tablet] 1 each PO DAILY #30 tablet Referrals: CRYSTAL LEACH DO [ACTIVE STAFF] - Follow up in 3-5 days (Call for follow-up appointment for care.) MAE HART MD [SUPERVISOR ENDLESS TRACK VEHICLE] - Follow up in 3-5 days (Call to schedule appointment for further management of gallbladder disease.)
--- NOTE | 2019-02-12 22:10 | RADIOLOGY REPORT (SQ) ---
EXAM DESCRIPTION: US ABDOMEN LIMITED COMPLETED DATE/TME: 02/12/2019 21:11 CLINICAL HISTORY: 33 years, Female, right upper quad/flank pain COMPARISON: CT 08/13/2018 TECHNIQUE: Limited right upper quadrant ultrasound LIMITATIONS: None. FINDINGS: Echogenic appearance to the liver suggesting fatty infiltrative change. No focal liver lesions. No gallstones or gallbladder wall thickening. Negative sonographic Cook's sign. CBD measures 2.5 mm. Some equivocal sludge in the gallbladder lumen. The visualized abdominal aorta inferior vena cava and right kidney are unremarkable. The pancreas is not well seen due to bowel gas IMPRESSION: Some equivocal sludge in the gallbladder lumen with no definitive gallstones. No sonographic evidence for cholecystitis copyright 2010 [employer]- All Rights Reserved
[2019-02-12 23:27] LABS: ABSOLUTE BASOPHILS # (AUTO) 0.1 10^3/uL (0.0-0.2); ABSOLUTE EOSINOPHILS # (AUTO) 0.3 10^3/uL (0.0-0.6); ABSOLUTE MONOCYTES (AUTO) 0.8 10^3/uL (0.1-1.4); ABSOLUTE NEUT (AUTO) 8.4 10^3/uL (1.7-8.2); BASOPHILS % (AUTO) 0.4 % (0-2); EOSINOPHILS % (AUTO) 2.1 % (0-6); HEMOGLOBIN 12.8 g/dL (12.0-15.5); LYMPHOCYTES % (AUTO) 34.3 % (13-45); MEAN CORPUSCULAR HEMOGLOBIN 30.6 pg (27.0-33.4); MEAN CORPUSCULAR HGB CONC 33.6 g/dL (32.0-36.0); MEAN CORPUSCULAR VOLUME 91 fl (80-97); MONOCYTES % (AUTO) 5.3 % (3-13); PLATELET COUNT 343 10^3/uL (150-450); RED BLOOD COUNT 4.18 10^6/uL (3.72-5.28); RED CELL DISTRIBUTION WIDTH 12.8 % (11.5-14.0); SEGMENTED NEUTROPHILS % (AUTO) 57.9 % (42-78); TOTAL CELLS COUNTED % (AUTO) 100 %; WHITE BLOOD COUNT 14.6 10^3/uL (4.0-10.5)
[2019-02-12 23:50] LABS: ALBUMIN 4.3 g/dL (3.5-5.0); ALKALINE PHOSPHATASE 53 U/L (38-126); ANION GAP 8 (5-19); ASPARTATE AMINO TRANSFERASE 20 U/L (14-36); BILIRUBIN,DIRECT 0.2 mg/dL (0.0-0.4); BILIRUBIN,TOTAL 0.4 mg/dL (0.2-1.3); BLOOD UREA NITROGEN 10 mg/dL (7-20); CALCIUM 10.1 mg/dL (8.4-10.2); CARBON DIOXIDE 25 mmol/L (22-30); CHLORIDE 105 mmol/L (98-107); GLUCOSE 94 mg/dL (75-110); POTASSIUM 3.8 mmol/L (3.6-5.0); TOTAL PROTEIN 7.3 g/dL (6.3-8.2)
[2019-02-13 01:55] VITALS: BP 130/62
== END 2019-02-13 01:53 | disposition home or self-care (01) ==
LOC: ER 20:55
DX: O26.611 Liver and biliary tract disorders in pregnancy, first trimester (principal); K80.50 Calculus of bile duct without cholangitis or cholecystitis without obstruction; O26.891 Other specified pregnancy related conditions, first trimester; R10.13 Epigastric pain; R10.11 Right upper quadrant pain; R19.7 Diarrhea, unspecified; R11.0 Nausea; O99.331 Smoking (tobacco) complicating pregnancy, first trimester; F17.200 Nicotine dependence, unspecified, uncomplicated; Z3A.01 Less than 8 weeks gestation of pregnancy
CPT/HCPCS: 99284; 96361; 96374; 96375; 36415; 84702; 83690; 85025; 80053; 81001; 76705; J2270; S0164; J7030

== ENCOUNTER 2019-03-24 23:12 | Emergency (ER) | payer MEDICAID ==
--- NOTE | 2019-03-24 23:31 | ER Document Report ---
ED General - General Chief Complaint: Overdose Stated Complaint: POSSIBLE OVERDOSE Time Seen by Provider: 03/24/19 23:31 TRAVEL OUTSIDE OF THE [place] IN LAST 30 DAYS: No - HPI Patient complains to provider of: overdose Notes: 33 y/o presenting to ED for evaluation of overdose she states she was arguing with her significant other when she decided she just wanted to go to sleep she denies suicide intent she took 20-25 benadryl with a couple of zoloft mixed in as well she denies vaginal bleeding and notes that she is approx 11 weeks she has had an ultrasound with this and has no h/o miscarriages she was brought in by EMS and was given activated charcoal by them pre hospital - Related Data Allergies/Adverse Reactions: No Known Allergies Allergy (Verified 03/25/19 00:36) Past Medical History - Social History Smoking Status: Unknown if Ever Smoked Family History: Reviewed & Not Pertinent, Other - Past Medical History Cardiac Medical History: Reports: Hx Heart Murmur Denies: Hx Coronary Artery Disease, Hx Heart Attack, Hx Hypertension Pulmonary Medical History: Denies: Hx Asthma, Hx Bronchitis, Hx COPD, Hx Pneumonia Neurological Medical History: Reports: Hx Migraine. Denies: Hx Cerebrovascular Accident, Hx Seizures Renal/ Medical History: Denies: Hx Peritoneal Dialysis Musculoskeletal Medical History: Denies Hx Arthritis, Reports Hx Musculoskeletal Trauma Past Surgical History: Reports: Hx Oral Surgery - wisdom teeth - Immunizations Hx Diphtheria, Pertussis, Tetanus Vaccination: Yes Review of Systems - Review of Systems Constitutional: No symptoms reported EENT: No symptoms reported Cardiovascular: No symptoms reported Respiratory: No symptoms reported Gastrointestinal: No symptoms reported Genitourinary: No symptoms reported Female Genitourinary: No symptoms reported Musculoskeletal: No symptoms reported Skin: No symptoms reported Hematologic/Lymphatic: No symptoms reported Neurological/Psychological: Depression. denies: Hallucinations, Homicidal ideation, Suicidal ideation Physical Exam - Vital signs Interpretation: Normal - General General appearance: Appears well, Alert - HEENT Head: Normocephalic, Atraumatic Eyes: Normal Pupils: PERRL - Respiratory Respiratory status: No respiratory distress Chest status: Nontender Breath sounds: Normal Chest palpation: Normal - Cardiovascular Rhythm: Regular Heart sounds: Normal auscultation Murmur: No - Abdominal Inspection: Normal Distension: No distension Bowel sounds: Normal Tenderness: Nontender Organomegaly: No organomegaly - Back Back: Normal, Nontender - Extremities General upper extremity: Normal inspection, Nontender, Normal color, Normal ROM, Normal temperature General lower extremity: Normal inspection, Nontender, Normal color, Normal ROM, Normal temperature, Normal weight bearing. No: Lorrie's sign - Neurological Neuro grossly intact: Yes Cognition: Normal Orientation: AAOx4 Heri Coma Scale Eye Opening: Spontaneous Heri Coma Scale Verbal: Oriented [place] Coma Scale Motor: Obeys Commands [place] Coma Scale Total: 15 Speech: Normal Motor strength normal: LUE, RUE, LLE, RLE Sensory: Normal - Psychological Associated symptoms: Tearful. No: Auditory hallucinations, Visual hallucinations - Skin Skin Temperature: Warm Skin Moisture: Dry Skin Color: Normal Course - Re-evaluation Re-evalutation: 03/24/19 23:38 patient w/ overdose w/o suicidal intent poison center recommends observational period of approx 8 hours will plan on keeping in ED for psychiatric services to evaluate her although she does not meet ivc criteria based on accidental overdose w/o suicide intent - Laboratory Result Diagrams: 03/25/19 01:42 03/25/19 01:27 Laboratory results interpreted by me: 03/25/19 03/25/19 03/25/19 01:20 01:27 01:42 WBC 18.3 H Lymph % (Auto) 10.2 L Absolute Neuts (auto) 15.8 H Seg Neutrophils % 86.1 H Carbon Dioxide 20 L BUN 6 L Glucose 127 H Urine HCG, Qual POSITIVE H Salicylates < 1.0 L Acetaminophen < 10 L - EKG Interpretation by Me Additional EKG results interpreted by me: 03/25/19 02:07 NSR, rate 89, no ST changes Discharge - Discharge Clinical Impression: Accidental overdose Qualifiers: Encounter type: initial encounter Qualified Code(s): T50.901A - Poisoning by unspecified drugs, medicaments and biological substances, accidental (unintentional), initial encounter Qualifiers: Weeks of gestation: 11 weeks Qualified Code(s): Z3A.11 - 11 weeks gestation of Condition: Stable Disposition: OTHER
[2019-03-25 01:49] LABS: ABSOLUTE EOSINOPHILS # (AUTO) 0.1 10^3/uL (0.0-0.6); ABSOLUTE LYMPHOCYTES (AUTO) 1.9 10^3/uL (0.5-4.7); ABSOLUTE MONOCYTES (AUTO) 0.5 10^3/uL (0.1-1.4); ABSOLUTE NEUT (AUTO) 15.8 10^3/uL (1.7-8.2); BASOPHILS % (AUTO) 0.3 % (0-2); EOSINOPHILS % (AUTO) 0.4 % (0-6); HEMATOCRIT 36.5 % (36.0-47.0); HEMOGLOBIN 12.5 g/dL (12.0-15.5); LYMPHOCYTES % (AUTO) 10.2 % (13-45); MEAN CORPUSCULAR HEMOGLOBIN 30.9 pg (27.0-33.4); MEAN CORPUSCULAR HGB CONC 34.2 g/dL (32.0-36.0); MEAN CORPUSCULAR VOLUME 90 fl (80-97); PLATELET COUNT 350 10^3/uL (150-450); RED BLOOD COUNT 4.04 10^6/uL (3.72-5.28); RED CELL DISTRIBUTION WIDTH 12.6 % (11.5-14.0); SEGMENTED NEUTROPHILS % (AUTO) 86.1 % (42-78); TOTAL CELLS COUNTED % (AUTO) 100 %; WHITE BLOOD COUNT 18.3 10^3/uL (4.0-10.5)
[2019-03-25 01:51] LABS: URINE AMPHETAMINES SCREEN NEGATIVE; URINE BARBITURATES SCREEN NEGATIVE; URINE BENZODIAZEPINES SCREEN NEGATIVE; URINE COCAINE SCREEN NEGATIVE; URINE MARIJUANA (THC) SCREEN NEGATIVE; URINE METHADONE SCREEN NEGATIVE; URINE PHENCYCLIDINE SCREEN NEGATIVE
[2019-03-25 02:03] LABS: ALBUMIN 4.3 g/dL (3.5-5.0); ALKALINE PHOSPHATASE 45 U/L (38-126); ANION GAP 12 (5-19); ASPARTATE AMINO TRANSFERASE 25 U/L (14-36); BILIRUBIN,DIRECT 0.1 mg/dL (0.0-0.4); BILIRUBIN,TOTAL 0.4 mg/dL (0.2-1.3); BLOOD UREA NITROGEN 6 mg/dL (7-20); CALCIUM 10.2 mg/dL (8.4-10.2); CARBON DIOXIDE 20 mmol/L (22-30); CHLORIDE 107 mmol/L (98-107); GLUCOSE 127 mg/dL (75-110); TOTAL PROTEIN 7.4 g/dL (6.3-8.2)
[2019-03-25 02:04] LABS: ACETAMINOPHEN < 10 ug/mL (10-30); ALCOHOL < 10 mg/dL (NONE DETECTED); SALICYLATE < 1.0 mg/dL (2.0-20.0)
[2019-03-25] MEDS: NORMAL SALINE 1000 ML 1,000 ML IV PRN ×2 (02:56→04:38)
[2019-03-25] MEDS ORDERED: BUPRENORPHINE HCL 2 MG SUBLINGUAL TABLET SL ONE (13:51)
--- NOTE | 2019-03-25 13:53 | ER Document Report ---
Doctor's Note Notes: 03/25/19 13:52 Patient states that she feels much better now. Patient denies any suicidal or homicidal ideation. Patient states that she made a mistake last night. States that she takes Subutex daily. She states that she is due for her dose. Mental health has evaluated the patient and she is stable for discharge. She will receive her Subutex with her belongings. Follow-up precautions were given. Verbal discharge instructions were given to the patient. They verbalized understanding. They are stable for discharge. PHYSICAL EXAMINATION: GENERAL: Appears well, healthy, well-nourished, no acute distress. LUNGS: Equal breath sounds bilaterally and clear to auscultation. No wheezes rales or rhonchi. CARDIOVASCULAR: S1-S2, regular rate, regular rhythm. Radial pulses 2+, normal. ABDOMEN: Normoactive bowel sounds. Soft, nontender, no guarding, no rebound tenderness, and no masses palpated. PSYCH: Normal mood, normal affect.
[2019-03-25 14:38] VITALS: BP 139/88
--- NOTE | 2019-03-26 11:49 | EKG REPORT ---
SEVERITY:- NORMAL ECG - SINUS RHYTHM : Confirmed by: Danica Woodall MD 26-Mar-2019 11:49:01
== END 2019-03-25 14:45 | disposition home or self-care (01) ==
LOC: ER 23:12
DX: O9A.211 Injury, poisoning and certain other consequences of external causes complicating pregnancy, first trimester (principal); T43.221A Poisoning by selective serotonin reuptake inhibitors, accidental (unintentional), initial encounter; T45.0X1A Poisoning by antiallergic and antiemetic drugs, accidental (unintentional), initial encounter; Z3A.11 11 weeks gestation of pregnancy; Y92.009 Unspecified place in unspecified non-institutional (private) residence as the place of occurrence of the external cause
CPT/HCPCS: 93005; 36415; 82962; 80307 ×4; 83690; 85025; 81025; 80053; 93010; J7030; 96360; 96361; 99284

== ENCOUNTER 2019-05-06 11:37 | Observation (INO) | payer MEDICAID ==
[2019-05-06] MEDS ORDERED: MISOPROSTOL 0.2 MG TABLET PO SCH (12:30)
[2019-05-06 12:48] LABS: HEMATOCRIT 33.3 % (36.0-47.0); HEMOGLOBIN 11.6 g/dL (12.0-15.5); MEAN CORPUSCULAR HEMOGLOBIN 31.3 pg (27.0-33.4); MEAN CORPUSCULAR HGB CONC 34.8 g/dL (32.0-36.0); MEAN CORPUSCULAR VOLUME 90 fl (80-97); PLATELET COUNT 241 10^3/uL (150-450); RED CELL DISTRIBUTION WIDTH 12.5 % (11.5-14.0); WHITE BLOOD COUNT 11.5 10^3/uL (4.0-10.5)
[2019-05-06] MEDS: RINGERS SOLUTION,LACTATED 1,000 ML IV PRN ×2 (13:00→21:00)
[2019-05-06] MEDS ORDERED: MISOPROSTOL 0.2 MG TABLET ONE ×2 (13:32→23:39)
[2019-05-06] MEDS: MISOPROSTOL 0.2 MG TABLET PO SCH ×3 (13:41→23:45)
[2019-05-06] MEDS: IBUPROFEN 800 MG TABLET PO SCH ×2 (13:51→21:33)
[2019-05-06] MEDS ORDERED: BUPRENORPHINE HCL 2 MG SUBLINGUAL TABLET SL ONE (14:00)
[2019-05-06 14:17] LABS: APPEARANCE,URINE CLOUDY; BILIRUBIN,URINE NEGATIVE (NEGATIVE); GLUCOSE, URINE NEGATIVE (NEGATIVE); KETONES,URINE TRACE mg/dL (NEGATIVE); LEUKOCYTE ESTERASE,URINE LARGE (NEGATIVE); NITRITE,URINE NEGATIVE (NEGATIVE); PROTEIN,URINE 30 mg/dL (NEGATIVE); URINE SPECIFIC GRAVITY 1.026
[2019-05-06 14:18] LABS: COLOR,URINE YELLOW
[2019-05-06 14:25] LABS: URINE AMPHETAMINES SCREEN NEGATIVE; URINE BARBITURATES SCREEN NEGATIVE; URINE COCAINE SCREEN NEGATIVE; URINE MARIJUANA (THC) SCREEN NEGATIVE; URINE METHADONE SCREEN NEGATIVE; URINE PHENCYCLIDINE SCREEN NEGATIVE
[2019-05-06 14:34] LABS: URINE BENZODIAZEPINES SCREEN UNCONFIRMED POSITIVE
[2019-05-06] MEDS: NICOTINE 14 MG/24 HR PATCH.TD24 TD SCH (16:31)
[2019-05-06] MEDS ORDERED: ACETAMINOPHEN 1,000 MG/100 ML RTUPB IV SCH (18:00)
[2019-05-06] MEDS: BUPRENORPHINE HCL 2 MG SUBLINGUAL TABLET SL SCH ×2 (21:33→23:45)
[2019-05-06] MEDS ORDERED: BUPRENORPHINE HCL 2 MG SUBLINGUAL TABLET SL SCH (22:00)
[2019-05-07] MEDS ORDERED: ACETAMINOPHEN 325 MG TABLET PO ONE (01:30)
[2019-05-07] MEDS: IBUPROFEN 800 MG TABLET PO SCH (05:23)
[2019-05-07] MEDS: BUPRENORPHINE HCL 2 MG SUBLINGUAL TABLET SL SCH ×2 (05:23→11:25)
--- NOTE | 2019-05-07 05:54 | PDOC PROGRESS REPORT ---
Subjective Progress Note for:: 05/07/19 Subjective:: Called to patients bedside d/t pressure and pain. Sac in vaginal vault that ruptured on exam and fetus delivered. Non-viable as anticipated. Male infant. Cord clamped and passed to RN. Placenta just inside os and does not delivery with fundal pressure. No bleeding. WIll leave in place and let her spend time with baby. Continue cytotec until placenta delivers EBL 25 ml Reason For Visit: INTRAUTERINE DEMISEAT 16.4 WEEKS EGA Physical Exam - Physical Exam Vital Signs: Temp Pulse Resp BP Pulse Ox 98.1 F 80 18 98/46 L 94 05/07/19 04:22 05/07/19 04:22 05/07/19 04:22 05/07/19 04:22 05/07/19 04:22 Intake & Output 05/05/19 05/06/19 05/07/19 06:59 06:59 06:59 Intake Total 1130 Balance 1130 Weight 73.028 kg Result Laboratory Results: 05/06/19 12:37 05/06/19 05/06/19 05/06/19 12:37 12:37 13:40 WBC 11.5 H RBC 3.70 L Hgb 11.6 L Hct 33.3 L MCV 90 MCH 31.3 MCHC 34.8 RDW 12.5 Plt Count 241 Urine Color YELLOW Urine Appearance CLOUDY Urine pH 5.0 Ur Specific [place] 1.026 Urine Protein 30 H Urine Glucose (UA) NEGATIVE Urine Ketones TRACE H Urine Blood NEGATIVE Urine Nitrite NEGATIVE Ur Leukocyte Esterase LARGE H Urine WBC (Auto) 35 Urine RBC (Auto) 6 Blood Type O POSITIVE Antibody Screen NEGATIVE Assessment & Plan - Time Time Spent with patient: 15-24 minutes
[2019-05-07] MEDS ORDERED: MISOPROSTOL 0.2 MG TABLET ONE (06:02)
[2019-05-07] MEDS: MISOPROSTOL 0.2 MG TABLET PO SCH (06:05)
--- NOTE | 2019-05-07 06:38 | PDOC PROGRESS REPORT ---
Subjective Progress Note for:: 05/07/19 Subjective:: Called to patients bedside d/t pressure and pain. Placenta at os and patient pushed a few times delivering placenta and membranes. Moderate bleeding. EBL 100 ml Reason For Visit: INTRAUTERINE DEMISEAT 16.4 WEEKS EGA Physical Exam - Physical Exam Vital Signs: Temp Pulse Resp BP Pulse Ox 98.1 F 80 18 98/46 L 94 05/07/19 04:22 05/07/19 04:22 05/07/19 04:22 05/07/19 04:22 05/07/19 04:22 Intake & Output 05/05/19 05/06/19 05/07/19 06:59 06:59 06:59 Intake Total 1130 Balance 1130 Weight 73.028 kg Result Laboratory Results: 05/06/19 12:37 05/06/19 05/06/19 05/06/19 12:37 12:37 13:40 WBC 11.5 H RBC 3.70 L Hgb 11.6 L Hct 33.3 L MCV 90 MCH 31.3 MCHC 34.8 RDW 12.5 Plt Count 241 Urine Color YELLOW Urine Appearance CLOUDY Urine pH 5.0 Ur Specific [place] 1.026 Urine Protein 30 H Urine Glucose (UA) NEGATIVE Urine Ketones TRACE H Urine Blood NEGATIVE Urine Nitrite NEGATIVE Ur Leukocyte Esterase LARGE H Urine WBC (Auto) 35 Urine RBC (Auto) 6 Blood Type O POSITIVE Antibody Screen NEGATIVE Assessment & Plan - Time Time Spent with patient: 15-24 minutes
[2019-05-07] MEDS ORDERED: ACETAMINOPHEN 325 MG TABLET PO SCH (09:00)
[2019-05-07 10:16] VITALS: BP 118/66
[2019-05-07 11:15] LABS: ABSOLUTE BASOPHILS # (AUTO) 0.1 10^3/uL (0.0-0.2); ABSOLUTE EOSINOPHILS # (AUTO) 0.6 10^3/uL (0.0-0.6); ABSOLUTE LYMPHOCYTES (AUTO) 3.2 10^3/uL (0.5-4.7); ABSOLUTE MONOCYTES (AUTO) 0.7 10^3/uL (0.1-1.4); ABSOLUTE NEUT (AUTO) 10.2 10^3/uL (1.7-8.2); BASOPHILS % (AUTO) 0.5 % (0-2); EOSINOPHILS % (AUTO) 4.2 % (0-6); HEMATOCRIT 33.7 % (36.0-47.0); HEMOGLOBIN 11.6 g/dL (12.0-15.5); LYMPHOCYTES % (AUTO) 21.6 % (13-45); MEAN CORPUSCULAR HGB CONC 34.3 g/dL (32.0-36.0); MEAN CORPUSCULAR VOLUME 90 fl (80-97); PLATELET COUNT 274 10^3/uL (150-450); RED BLOOD COUNT 3.73 10^6/uL (3.72-5.28); RED CELL DISTRIBUTION WIDTH 12.6 % (11.5-14.0); SEGMENTED NEUTROPHILS % (AUTO) 68.7 % (42-78); TOTAL CELLS COUNTED % (AUTO) 100 %; WHITE BLOOD COUNT 14.9 10^3/uL (4.0-10.5)
[2019-05-07] MEDS: NICOTINE 14 MG/24 HR PATCH.TD24 TD SCH (11:27)
--- NOTE | 2019-05-07 12:04 | PDOC DISCHARGE SUMMARY ---
Impression - Admit/DC Date/PCP Admission Date/Primary Care Provider: 05/06/19 11:37 XAVI NIETO MD Discharge Date: 05/07/19 - Discharge Diagnosis (1) Intrauterine before 20 weeks of gestation Is this a current diagnosis for this admission?: Yes - Assessment Summary: Pt was admitted for IUFD at 16+4ega diagnosed in the office and underwent an IOL for IUFD. She delivered the baby this am but placenta did not follow immediately therefore an additional dose of cytotec was given. THe placenta then followed within and hour. She has been afebrile and is doing well and desires to go home. She desires to have cremation done - declines autopsy (only wants a gross examination) and declines genetics. She desires labs to be done to r/o infection or other causes and is considering APAS w/u when BHCG negative in office. - Additional Information Resuscitation Status: Full Code Discharge Diet: As Tolerated Discharge Activity: Activity As Tolerated, Other - pelvic rest Referrals: XAVI NIETO MD [Primary Care Provider] - Prescriptions: Doxycycline Hyclate 100 mg PO BID 7 Days #14 tablet. Ibuprofen [Motrin 800 mg Tablet] 800 mg PO Q8 #90 tablet Acetaminophen [Tylenol 325 mg Tablet] 975 mg PO Q6A #30 tablet Home Medications: Buprenorphine HCl [Subutex 2 mg Sl Tablet] 4 mg PO Q12 05/06/19 Acetaminophen [Tylenol 325 mg Tablet] 975 mg PO Q6A #30 tablet 05/07/19 Doxycycline Hyclate 100 mg PO BID 7 Days #14 tablet. 05/07/19 Ibuprofen [Motrin 800 mg Tablet] 800 mg PO Q8 #90 tablet 05/07/19 History of Present Illiness History of Present Illness: YULIYA LALA is a 33 year old female with IUFD at 16+4ega diagnosed in the office and underwent an IOL for IUFD now s/p delivery Hospital Course Hospital Course: Pt was admitted for IUFD at 16+4ega diagnosed in the office and underwent an IOL with cytotec for IUFD. She delivered the baby this am but placenta did not follow immediately therefore an additional dose of cytotec was given. THe placenta then followed within and hour. She has been afebrile and is doing well and desires to go home. She desires to have cremation done - declines autopsy (only wants a gross examination) and declines genetics. She desires labs to be done to r/o infection or other causes and is considering APAS w/u when BHCG negative in office. Physical Exam - Physical Exam Vital Signs: Temp Pulse Resp BP Pulse Ox 98.5 F 85 20 118/66 100 05/07/19 10:15 05/07/19 10:15 05/07/19 10:15 05/07/19 10:15 05/07/19 10:15 Intake & Output 05/06/19 05/07/19 05/08/19 06:59 06:59 06:59 Intake Total 1130 Balance 1130 Weight 73.028 kg General appearance: PRESENT: no acute distress, well-developed, well-nourished Head exam: PRESENT: atraumatic, normocephalic Respiratory exam: PRESENT: clear to auscultation christian, symmetrical, unlabored GI/Abdominal exam: PRESENT: normal bowel sounds, soft. ABSENT: distended, guarding, mass, organolmegaly, rebound, tenderness Rectal exam: PRESENT: deferred Neurological exam: PRESENT: alert, awake, oriented to person, oriented to place, oriented to time, oriented to situation, CN II-XII grossly intact. ABSENT: motor sensory deficit Psychiatric exam: PRESENT: appropriate affect, other - tearful Skin exam: PRESENT: dry, intact, warm. ABSENT: cyanosis, rash Results Laboratory Results: WBC 14.9 10^3/uL (4.0-10.5) H 05/07/19 10:49 RBC 3.73 10^6/uL (3.72-5.28) 05/07/19 10:49 Hgb 11.6 g/dL (12.0-15.5) L 05/07/19 10:49 Hct 33.7 % (36.0-47.0) L 05/07/19 10:49 MCV 90 fl (80-97) 05/07/19 10:49 MCH 31.0 pg (27.0-33.4) 05/07/19 10:49 MCHC 34.3 g/dL (32.0-36.0) 05/07/19 10:49 RDW 12.6 % (11.5-14.0) 05/07/19 10:49 Plt Count 274 10^3/uL (150-450) 05/07/19 10:49 Lymph % (Auto) 21.6 % (13-45) 05/07/19 10:49 Scott % (Auto) 5.0 % (3-13) 05/07/19 10:49 Eos % (Auto) 4.2 % (0-6) 05/07/19 10:49 Baso % (Auto) 0.5 % (0-2) 05/07/19 10:49 Absolute Neuts (auto) 10.2 10^3/uL (1.7-8.2) H 05/07/19 10:49 Absolute Lymphs (auto) 3.2 10^3/uL (0.5-4.7) 05/07/19 10:49 Absolute Monos (auto) 0.7 10^3/uL (0.1-1.4) 05/07/19 10:49 Absolute Eos (auto) 0.6 10^3/uL (0.0-0.6) 05/07/19 10:49 Absolute Basos (auto) 0.1 10^3/uL (0.0-0.2) 05/07/19 10:49 Seg Neutrophils % 68.7 % (42-78) 05/07/19 10:49 Hemoglobin A1c % 5.3 % (4.7-6.0) 05/07/19 10:49 Urine Color YELLOW 05/06/19 13:40 Urine Appearance CLOUDY 05/06/19 13:40 Urine pH 5.0 (5.0-9.0) 05/06/19 13:40 Ur Specific [place] 1.026 05/06/19 13:40 Urine Protein 30 mg/dL (NEGATIVE) H 05/06/19 13:40 Urine Glucose (UA) NEGATIVE mg/dL (NEGATIVE) 05/06/19 13:40 Urine Ketones TRACE mg/dL (NEGATIVE) H 05/06/19 13:40 Urine Blood NEGATIVE (NEGATIVE) 05/06/19 13:40 Urine Nitrite NEGATIVE (NEGATIVE) 05/06/19 13:40 Urine Bilirubin NEGATIVE (NEGATIVE) 05/06/19 13:40 Urine Urobilinogen 2.0 mg/dL (<2.0) H 05/06/19 13:40 Ur Leukocyte Esterase LARGE (NEGATIVE) H 05/06/19 13:40 Urine WBC (Auto) 35 /HPF 05/06/19 13:40 Urine RBC (Auto) 6 /HPF 05/06/19 13:40 Urine Bacteria (Auto) TRACE /HPF 05/06/19 13:40 Squamous Epi Cells Auto 99 /HPF 05/06/19 13:40 Urine Mucus (Auto) OCC /LPF 05/06/19 13:40 Urine Ascorbic Acid NEGATIVE (NEGATIVE) 05/06/19 13:40 Urine Opiates Screen NEGATIVE 05/06/19 13:40 Urine Methadone Screen NEGATIVE 05/06/19 13:40 Ur Barbiturates Screen NEGATIVE 05/06/19 13:40 Ur Phencyclidine Scrn NEGATIVE 05/06/19 13:40 Ur Amphetamines Screen NEGATIVE 05/06/19 13:40 U Benzodiazepines Scrn UNCONFIRMED POSITIVE 05/06/19 13:40 Urine Cocaine Screen NEGATIVE 05/06/19 13:40 U Marijuana (THC) Screen NEGATIVE 05/06/19 13:40 Blood Type O POSITIVE 05/06/19 12:37 Antibody Screen NEGATIVE 05/06/19 12:37 Impressions: approp grief reaction - but increased risk for pp depression - she will f/u with port on Thursday. She has been at patient at [facility] for 9 years. Plan Plan of Treatment: Discharge to home with po abx due to slight increased WBC count. Follow up in the office next week Stroke Is this a Stroke Patient?: No Acute Heart Failure - Is this a Heart Failure Patient?: No
[2019-05-10 06:56] LABS: HSV-I IGG AB 3.95 index (0.00-0.90); TOXOPLASMA GONDII IGM AB <3.0 AU/mL (0.0-7.9)
[2019-05-11 14:04] LABS: PARVOVIRUS B19 IGG AB 6.5 index (0.0-0.8); PARVOVIRUS B19 IGM AB 0.2 index (0.0-0.8)
== END 2019-05-07 13:50 | disposition home or self-care (01) ==
LOC: 2N 11:37
PROVIDERS: ADMIT Obstetrics & Gynecology; ATTEND Obstetrics & Gynecology
DX: O03.39 Incomplete spontaneous abortion with other complications (principal); O43.81 Placental infarction; F43.20 Adjustment disorder, unspecified; F19.11 Other psychoactive substance abuse, in remission; F17.210 Nicotine dependence, cigarettes, uncomplicated; Z79.899 Other long term (current) drug therapy
CPT/HCPCS: 86695 ×2; 86900; 86901; 36415 ×2; 86850; 84443; 85025; 85027; 81001; 86778; 80307; 86747 ×3; 83036; 86696; 88307 ×2; G0378 ×2; G0379; J3490 ×5; J7120; J0131; J0571 ×2

== ENCOUNTER 2019-05-31 11:58 | Inpatient (IN) | payer MEDICAID ==
[2019-05-31] MEDS ORDERED: IBUPROFEN 800 MG TABLET PO ONE (12:07)
[2019-05-31] MEDS ORDERED: PROMETHAZINE HCL 25 MG TABLET PO ONE (12:07)
--- NOTE | 2019-05-31 12:09 | ER Document Report ---
ED Medical Screen (RME) - General Chief Complaint: Abdominal Pain Stated Complaint: ABDOMINAL PAIN Time Seen by Provider: 05/31/19 12:02 Primary Care Provider: XAVI NIETO MD [Primary Care Provider] - Follow up as needed Mode of Arrival: Wheelchair Information source: Patient Notes: 33-year-old female with reports of severe abdominal pain vaginal bleeding. She gives history of delivered miscarriage on May 07. She reports she felt okay for the first couple weeks but for the past week she has had severe abdominal pain and the bleeding smells foul. She reports she is out of ibuprofen. she did go to her [facility] [employer] [facility] today and they told her to come to the emergency department. She complains of nausea unsure of fever reports she has vomited twice. I have greeted and performed a rapid initial assessment of this patient. A comprehensive ED assessment and evaluation of the patient, analysis of test results and completion of the medical decision making process will be conducted by additional ED providers. TRAVEL OUTSIDE OF THE [place] IN LAST 30 DAYS: No - Related Data Allergies/Adverse Reactions: No Known Allergies Allergy (Verified 05/31/19 12:01) Past Medical History - Past Medical History Cardiac Medical History: Reports: Hx Heart Murmur Denies: Hx Coronary Artery Disease, Hx Heart Attack, Hx Hypertension Pulmonary Medical History: Denies: Hx Asthma, Hx Bronchitis, Hx COPD, Hx Pneumonia Neurological Medical History: Reports: Hx Migraine. Denies: Hx Cerebrovascular Accident, Hx Seizures Renal/ Medical History: Denies: Hx Peritoneal Dialysis Musculoskeltal Medical History: Denies Hx Arthritis, Reports Hx Musculoskeletal Trauma Psychiatric Medical History: Reports: Hx Depression Past Surgical History: Reports: Hx Oral Surgery - wisdom teeth - Immunizations Hx Diphtheria, Pertussis, Tetanus Vaccination: Yes Doctor's Discharge - Discharge Referrals: XAVI NIETO MD [Primary Care Provider] - Follow up as needed
[2019-05-31 13:12] LABS: ABSOLUTE EOSINOPHILS # (AUTO) 0.1 10^3/uL (0.0-0.6); ABSOLUTE LYMPHOCYTES (AUTO) 2.2 10^3/uL (0.5-4.7); ABSOLUTE MONOCYTES (AUTO) 0.7 10^3/uL (0.1-1.4); ABSOLUTE NEUT (AUTO) 15.3 10^3/uL (1.7-8.2); BASOPHILS % (AUTO) 0.2 % (0-2); EOSINOPHILS % (AUTO) 0.6 % (0-6); HEMATOCRIT 36.8 % (36.0-47.0); HEMOGLOBIN 12.3 g/dL (12.0-15.5); LYMPHOCYTES % (AUTO) 11.9 % (13-45); MEAN CORPUSCULAR HEMOGLOBIN 30.4 pg (27.0-33.4); MEAN CORPUSCULAR HGB CONC 33.4 g/dL (32.0-36.0); MEAN CORPUSCULAR VOLUME 91 fl (80-97); PLATELET COUNT 350 10^3/uL (150-450); RED BLOOD COUNT 4.06 10^6/uL (3.72-5.28); RED CELL DISTRIBUTION WIDTH 13.1 % (11.5-14.0); SEGMENTED NEUTROPHILS % (AUTO) 83.3 % (42-78); TOTAL CELLS COUNTED % (AUTO) 100 %; WHITE BLOOD COUNT 18.3 10^3/uL (4.0-10.5)
[2019-05-31] MEDS ORDERED: MORPHINE SULFATE 10 MG/ML INJ IV ONE ×2 (13:18→15:53)
--- NOTE | 2019-05-31 13:19 | ER Document Report ---
ED GI/ - General Chief Complaint: Lower Abdominal Pain Stated Complaint: ABDOMINAL PAIN Time Seen by Provider: 05/31/19 12:02 Mode of Arrival: Wheelchair Notes: CHIEF COMPLAINT: Pelvic pain, vaginal bleeding HPI: 33-year-old female presenting to the emergency department for evaluation of severe pelvic pain and vaginal bleeding. Patient states that she vaginally delivered a stillborn infant May 07 at 18 weeks gestation. Patient states she has had some vaginal bleeding with clotting since that time. Patient states that she does not feel like she was passing a lot of blood, had some intermittent cramping. Patient states 4 days ago she began having more severe bleeding with clots, reports increased vaginal odor. Patient states she began having more severe pelvic pain. Patient states it is very difficult to walk or move because of the severe pain. She called her [facility] today and was referred into the emergency department for evaluation ROS: See HPI - all other systems were reviewed and are otherwise negative Constitutional: no fever or recent illness Eyes: no drainage, no blurred vision ENT: no runny nose, no sore throat Cardiovascular: no chest pain Resp: no SOB, no cough GI: no vomiting, no diarrhea, + abd/pelvic pain : no dysuria, + vaginal bleeding Integumentary: no rash Allergy: no hives Musculoskeletal: no extremity pain or swelling Neurological: no numbness/tingling, no weakness MEDICATIONS: I agree with the patient medications as charted by the RN. ALLERGIES: I agree with the allergies as charted by the RN. PAST MEDICAL HISTORY/PAST SURGICAL HISTORY: Reviewed and agree as charted by RN. SOCIAL HISTORY: Reviewed and agree as charted by RN. FAMILY HISTORY: No significant familial comorbid conditions directly related to patient complaint EXAM: Reviewed vital signs as charted by RN. CONSTITUTIONAL: Alert and oriented and responds appropriately to questions. u ncomfortable-appearing; well-nourished HEAD: Normocephalic; atraumatic EYES: Conjunctivae clear, sclerae non-icteric ENT: normal nose; no rhinorrhea; moist mucous membranes NECK: Supple without meningismus CARD: RRR; no murmurs, no clicks, no rubs, no gallops; symmetric distal pulses RESP: Normal chest excursion without splinting or tachypnea; breath sounds clear and equal bilaterally; no wheezes, no rhonchi, no rales, pulse oximetry 100% on room air not hypoxic ABD/GI: Normal bowel sounds; non-distended; soft, moderate pain across the pelvis with guarding. Mild tenderness upper abdomen bilaterally; no palpable organomegaly or masses : Female nurse therapy tech present. External genitalia normal. No skin lesions noted. Pelvic Exam: No active bleeding. Moderate thick yellowish-brown discha rge is noted. Cervix appears normal. No CMT. No lesions or masses. Uterus slightly enlarged and very tender. Right/Left adnexa normal size and moderately tender bilaterally. BACK: The back appears normal and is non-tender to palpation, there is no CVA tenderness EXT: Normal ROM in all joints; non-tender to palpation; no cyanosis, no effusions, no edema SKIN: Normal color for age and race; warm; dry; good turgor; no acute lesions noted NEURO: Moves all extremities equally; Motor and sensory function intact PSYCH: The patient's mood and manner are appropriate. Grooming and personal hygiene are appropriate. MDM: 33-year-old female who delivered a stillborn at 18 weeks gestation approximately 3 weeks ago. 4 days of severe pelvic pain and vaginal bleeding with odor. Patient appears moderately uncomfortable. Screening labs have been obtained via triage process patient with a moderate leukocytosis, I suspect she has either retained products or endometritis. Ultrasound initially ordered by triage process TRAVEL OUTSIDE OF THE [place] IN LAST 30 DAYS: No - Related Data Allergies/Adverse Reactions: No Known Allergies Allergy (Verified 05/31/19 12:01) Home Medications: [facility] Past Medical History - General Information source: Patient - Social History Smoking Status: Never Smoker Chew tobacco use (# tins/day): No Frequency of alcohol use: None Drug Abuse: None Family History: Reviewed & Not Pertinent, Other Patient has suicidal ideation: No Patient has homicidal ideation: No - Past Medical History Cardiac Medical History: Reports: Hx Heart Murmur Denies: Hx Coronary Artery Disease, Hx Heart Attack, Hx Hypertension Pulmonary Medical History: Denies: Hx Asthma, Hx Bronchitis, Hx COPD, Hx Pneumonia Neurological Medical History: Reports: Hx Migraine. Denies: Hx Cerebrovascular Accident, Hx Seizures Renal/ Medical History: Denies: Hx Peritoneal Dialysis Musculoskeletal Medical History: Denies Hx Arthritis, Reports Hx Musculoskeletal Trauma Psychiatric Medical History: Reports: Hx Depression Past Surgical History: Reports: Hx Oral Surgery - wisdom teeth - Immunizations Hx Diphtheria, Pertussis, Tetanus Vaccination: Yes Physical Exam - Vital signs Vitals: Temp Pulse Resp BP Pulse Ox 98.4 F 92 18 118/68 100 05/31/19 12:10 05/31/19 12:10 05/31/19 12:10 05/31/19 12:10 05/31/19 12:10 Course - Re-evaluation Re-evalutation: 05/31/19 14:36 On review of the patient record she was placed on a 7-day course of doxycycline at time of discharge May 07 05/31/19 15:[address] Mia Davis, [facility]. We discussed the patient's findings to this point including her history, lab work, ultrasound findings. She is in agreement to obtain CT to further evaluate for appendicitis or endometritis. She would like patient started on doxycycline, Flagyl, Mefoxin. She requests that I call her again after CT has resulted likely admission for possible PID to the [facility] floor 05/31/19 19:[address] Lombardo, Radiologist. no appendicitis, endometrium thickened, no fluid collections. Notified Dr. Davis of findings - Vital Signs Vital signs: Temp Pulse Resp BP Pulse Ox 98.7 F 79 20 121/51 L 100 05/31/19 17:37 05/31/19 17:37 05/31/19 17:37 05/31/19 17:37 05/31/19 17:37 - Laboratory Result Diagrams: 05/31/19 12:56 05/31/19 12:56 Laboratory results interpreted by me: 05/31/19 05/31/19 12:56 13:47 WBC 18.3 H Lymph % (Auto) 11.9 L Absolute Neuts (auto) 15.3 H Seg Neutrophils % 83.3 H Urine Blood LARGE H Ur Leukocyte Esterase LARGE H Discharge - Discharge Clinical Impression: PID (acute pelvic inflammatory disease) Condition: Fair Disposition: ADMITTED INPATIENT Admitting Provider: [facility]ia [facility] Unit Admitted: Post
[2019-05-31 13:35] LABS: ALBUMIN 4.2 g/dL (3.5-5.0); ALKALINE PHOSPHATASE 61 U/L (38-126); ANION GAP 8 (5-19); ASPARTATE AMINO TRANSFERASE 19 U/L (14-36); BILIRUBIN,TOTAL 0.3 mg/dL (0.2-1.3); BLOOD UREA NITROGEN 8 mg/dL (7-20); CARBON DIOXIDE 27 mmol/L (22-30); CHLORIDE 106 mmol/L (98-107); GLUCOSE 79 mg/dL (75-110); POTASSIUM 4.4 mmol/L (3.6-5.0); TOTAL PROTEIN 7.1 g/dL (6.3-8.2)
[2019-05-31] MEDS ORDERED: RINGERS SOLUTION,LACTATED 1,000 ML IV ONE (13:38)
[2019-05-31 14:13] LABS: APPEARANCE,URINE SLIGHTLY-CLOUDY; BILIRUBIN,URINE NEGATIVE (NEGATIVE); COLOR,URINE YELLOW; GLUCOSE, URINE NEGATIVE (NEGATIVE); KETONES,URINE NEGATIVE (NEGATIVE); LEUKOCYTE ESTERASE,URINE LARGE (NEGATIVE); NITRITE,URINE NEGATIVE (NEGATIVE); PROTEIN,URINE NEGATIVE (NEGATIVE); UROBILINOGEN,URINE NEGATIVE mg/dL (<2.0)
[2019-05-31 14:27] LABS: BACTERIA (WET MOUNT) 4+ BACTERIA SEEN; RBCS (WET MOUNT) 1+ RBCS SEEN; T.VAGINALIS (WET MOUNT) NO TRICHOMONAS SEEN; WBCS (WET MOUNT) 3+ WBCS SEEN; YEAST (WET MOUNT) NO YEAST SEEN
--- NOTE | 2019-05-31 15:09 | RADIOLOGY REPORT (SQ) ---
EXAM DESCRIPTION: U/S NON OB PEL TV W/DOPPLER COMPLETED DATE/TIME: 05/31/2019 2:11 pm REASON FOR STUDY: recent miscarriage pain COMPARISON: 05/30/2018 TECHNIQUE: Dynamic and static grayscale images acquired of the pelvis via transvaginal approach and recorded on PACS. Additional selected color Doppler and spectral images recorded. LIMITATIONS: None. FINDINGS: UTERUS: Contour normal. No mass. ENDOMETRIAL STRIPE: Thickened, heterogeneous. CERVIX: 2.6 cm. No nabothian cyst. RIGHT OVARY AND DOPPLER: Normal size. No worrisome masses. There is a complex cyst measuring 2 x 1.5 x 1.2 cm. Normal arterial vascular flow without evidence for torsion. LEFT OVARY AND DOPPLER: Normal size. No worrisome masses. Normal arterial vascular flow without evide nce for torsion. FREE FLUID: None noted. OTHER: No other significant finding. MEASUREMENTS: UTERUS: 10.2 x 6.7 x 5.6 cm. ENDOMETRIAL STRIPE: 18 mm. RIGHT OVARY: 3.3 x 2.1 x 2.2 cm. LEFT OVARY: 3.4 x 2.5 x 1.9 cm. IMPRESSION: The endometrium is thickened and heterogeneous. Cannot exclude retained products of con ception. Small complex or hemorrhagic cyst on the right ovary. TECHNICAL DOCUMENTATION: JOB ID: [id number] [employer]- All Rights Reserved Rev-09/25 Reading location - IP/workstation name: [email or web address]
[2019-05-31] MEDS ORDERED: DOXYCYCLINE HYCLATE INJ 100 MG VIAL IV ONE (15:30)
[2019-05-31] MEDS ORDERED: METRONIDAZOLE 500 MG/NS RTU 500 MG/100 ML RTUPB IV ONE (15:32)
[2019-05-31] MEDS ORDERED: CEFOXITIN INJ 2 GM VIAL IV ONE (15:32)
[2019-05-31 15:53] LABS: CHLAM PCR NOT DETECTED (NOT DETECT)
[2019-05-31] MEDS ORDERED: FENTANYL CITRATE INJ/PF 100 MCG/2 ML AMPUL IV ONE (17:34)
[2019-05-31] MEDS: DOXYCYCLINE HYCLATE INJ 100 MG VIAL IV SCH (18:24)
[2019-05-31] MEDS: CEFOXITIN INJ 2 GM VIAL IV SCH (18:24)
[2019-05-31] MEDS: DOCUSATE SODIUM 100 MG CAPSULE PO SCH (18:46)
--- NOTE | 2019-05-31 18:55 | PDOC H&P ---
History of Present Illness Admission Date/PCP: 05/31/19 17:50 XAVI NIETO MD Patient complains of: abdominal pain, purulent vaginal discharge History of Present Illness: YULIYA LALA is a 33 year old female with recent 16+4ega demise and delivery on 05/07. She reports that she was doing well until 4 days ago she began to have increasing abdominal pain and foul smelling discharge. She denies fevers but reports chills and then today abdominal pain is worse and she has been unable to get out of the bed. She is back to her prepregnancy Subutex 8mg BID Past Medical History Gynecological Infection: No Cardiac Medical History: Reports: Heart Murmur Denies: Coronary Artery Disease, Myocardial Infarction, Hypertension Pulmonary Medical History: Denies: Asthma, Bronchitis, Chronic Obstructive Pulmonary Disease (COPD), Pneumonia Neurological Medical History: Reports: Migraine Denies: Seizures Musculoskeltal Medical History: Denies: Arthritis Psychiatric Medical History: Reports: Depression Past Surgical History Past Surgical History: Reports: Other - history of diagnostic laparoscopy Social History Information Source: Patient Lives with: Family Smoking Status: Never Smoker Electronic Cigarette use?: No Hx Recreational Drug Use: No Drugs: None Hx Prescription Drug Abuse: Yes - subutex - Advance Directive Resuscitation Status: Full Code Family History Family History: Reviewed & Not Pertinent, Other Parental Family History Reviewed: No Children Family History Reviewed: NA Sibling(s) Family History Reviewed.: NA Medication/Allergy Home Medications: Buprenorphine HCl [Subutex 8 mg Sublingual Tablet] 8 mg PO Q12 05/31/19 Allergies/Adverse Reactions: No Known Allergies Allergy (Verified 05/31/19 12:01) Review of Systems Constitutional: ABSENT: chills, fever(s), headache(s), weight gain, weight loss Breasts: PRESENT: as per HPI Gastrointestinal: ABSENT: abdominal pain, constipation, diarrhea, hematemesis, hematochezia, nausea, vomiting Genitourinary: ABSENT: dysuria, hematuria Neurological: ABSENT: abnormal gait, abnormal speech, confusion, dizziness, focal weakness, syncope Psychiatric: ABSENT: anxiety, depression, homidical ideation, suicidal ideation Physical Exam - Physical Exam Vital Signs: Temp Pulse Resp BP Pulse Ox 98.7 F 79 20 121/51 L 100 05/31/19 17:37 05/31/19 17:37 05/31/19 17:37 05/31/19 17:37 05/31/19 17:37 Intake & Output 05/30/19 05/31/19 06/01/19 06:59 06:59 06:59 Intake Total 1000 Balance 1000 Weight 72.575 kg General appearance: PRESENT: no acute distress, well-developed, well-nourished Head exam: PRESENT: atraumatic, normocephalic Respiratory exam: PRESENT: clear to auscultation christian, symmetrical, unlabored Cardiovascular exam: PRESENT: RRR. ABSENT: diastolic murmur, rubs, systolic murmur Pulses: PRESENT: normal dorsalis pedis pul, +2 pedal pulses bilateral Vascular exam: PRESENT: normal capillary refill GI/Abdominal exam: PRESENT: normal bowel sounds, soft. ABSENT: distended, guarding, mass, organolmegaly, rebound, tenderness Rectal exam: PRESENT: deferred Gentrourinary exam: PRESENT: other - purulent vaginal discharge Extremities exam: PRESENT: full ROM. ABSENT: calf tenderness, clubbing, pedal edema Neurological exam: PRESENT: alert, awake, oriented to person, oriented to place, oriented to time, oriented to situation, CN II-XII grossly intact. ABSENT: motor sensory deficit Psychiatric exam: PRESENT: appropriate affect, normal mood. ABSENT: homicidal ideation, suicidal ideation Skin exam: PRESENT: dry, intact, warm. ABSENT: cyanosis, rash Result Laboratory Results: 05/31/19 12:56 05/31/19 12:56 05/31/19 05/31/19 05/31/19 12:56 12:56 12:56 WBC 18.3 H RBC 4.06 Hgb 12.3 Hct 36.8 MCV 91 MCH 30.4 MCHC 33.4 RDW 13.1 Plt Count 350 Seg Neutrophils % 83.3 H Sodium 140.8 Potassium 4.4 Chloride 106 Carbon Dioxide 27 Anion Gap 8 BUN 8 Creatinine 0.72 Est GFR ( Amer) > 60 Glucose 79 Lactic Acid Calcium 10.0 Total Bilirubin 0.3 AST 19 Alkaline Phosphatase 61 Total Protein 7.1 Albumin 4.2 Serum HCG, Qual NEGATIVE Urine Color Urine Appearance Urine pH Ur Specific [place] Urine Protein Urine Glucose (UA) Urine Ketones Urine Blood Urine Nitrite Ur Leukocyte Esterase Urine WBC (Auto) Urine RBC (Auto) 05/31/19 05/31/19 13:47 14:55 WBC RBC Hgb Hct MCV MCH MCHC RDW Plt Count Seg Neutrophils % Sodium Potassium Chloride Carbon Dioxide Anion Gap BUN Creatinine Est GFR ( Amer) Glucose Lactic Acid 1.9 Calcium Total Bilirubin AST Alkaline Phosphatase Total Protein Albumin Serum HCG, Qual Urine Color YELLOW Urine Appearance SLIGHTLY-CLOUDY Urine pH 5.0 Ur Specific [place] 1.010 Urine Protein NEGATIVE Urine Glucose (UA) NEGATIVE Urine Ketones NEGATIVE Urine Blood LARGE H Urine Nitrite NEGATIVE Ur Leukocyte Esterase LARGE H Urine WBC (Auto) 15 Urine RBC (Auto) 6 Impressions: Transvaginal US 05/31/19 12:03 IMPRESSION: The endometrium is thickened and heterogeneous. Cannot exclude retained products of conception. Small complex or hemorrhagic cyst on the right ovary. Status: Imported from PACS Assessment & Plan - Diagnosis (1) Endometritis following delivery Is this a current diagnosis for this admission?: Yes Plan: Mefoxy/doxy/flagyl ordered for delayed pp endometritis from 16+4ega delivery. TOradol for pain patients outpatient subutex was ordered for her. She reports that the Toradol is working well for her pain. (2) Intrauterine before 20 weeks of gestation Is this a current diagnosis for this admission?: Yes Plan: approx 2wks pp from 16+4ega wk demise - Time Time Spent: 30 to 50 Minutes Critical Time spent with patient: Less than 15 minutes Medications reviewed and adjusted accordingly: Yes Anticipated discharge: Home Within: within 72 hours - Inpatient Certification Based on my medical assessment, after consideration of the patient's comorbidities, presenting symptoms, or acuity I expect that the services needed warrant INPATIENT care.: Yes I certify that my determination is in accordance with my understanding of Medicare's requirements for reasonable and necessary INPATIENT services [42 CFR 412.3e].: Yes Medical Necessity: Need For IV Fluids, Need for Pain Control, Need for IV Antibiotics Post Hospital Care: D/C [employer] 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
--- NOTE | 2019-05-31 19:18 | RADIOLOGY REPORT (SQ) ---
EXAM DESCRIPTION: CT ABD/PELVIS WITH IV ORAL COMPLETED DATE/TIME: 05/31/2019 6:10 pm REASON FOR STUDY: lower abd pain/leukocytosis, recent delivery COMPARISON: None. TECHNIQUE: CT scan of the abdomen and pelvis performed using helical scanning technique with dynamic intravenous contrast injection. No oral contrast. Images reviewed with lung, soft tissue, and bone windows. Reconstructed coronal and sagittal MPR images reviewed. Delayed images for evaluation of the urinary system also acquired. All images stored on PACS. All CT scanners at this facility use dose modulation, iterative reconstruction, and/or weight based d osing when appropriate to reduce radiation dose to as low as reasonably achievable (ALARA). [facility]: Dose Right [facility]: CareDose [facility]: Dose Right [facility]: Teradose 4D [facility]: [employer] CONTRAST TYPE AND DOSE: contrast/concentration: Isovue 350.00 mg/ml; Total Contrast Delivered: 83.0 ml; Total Saline Delivered: 57.0 ml RENAL FUNCTION: BUN 8 creatinine 0.72 RADIATION DOSE: CT Rad equipment meets quality standard of care and radiation dose reduction techniq ues were employed. CTDIvol: 5.6 - 7.8 mGy. DLP: 763 mGy-cm.. LIMITATIONS: None. FINDINGS: LOWER CHEST: No significant findings. No nodules or infiltrates. LIVER: Normal size. No masses. No dilated ducts. SPLEEN: Normal size. No focal lesions. PANCREAS: No masses. No significant calcifications. No adjacent inflammation or peripancreatic fluid collections. Pancreatic duct not dilated. GALLBLADDER: No identified stones by CT criteria. No inflammatory changes to suggest cholecystitis. ADRENAL GLANDS: No significant masses or asymmetry. RIGHT KIDNEY AND URETER: No solid masses. No significant calcifications. No hydronephrosis or hyd roureter. LEFT KIDNEY AND URETER: No solid masses. No significant calcifications. No hydronephrosis or hydr oureter. AORTA AND VESSELS: No aneurysm. No dissection. Renal arteries, SMA, celiac without stenosis. RETROPERITONEUM: No retroperitoneal adenopathy, hemorrhage or masses. BOWEL AND PERITONEAL CAVITY: No masses or inflammatory changes. No free fluid or peritoneal masses. APPENDIX: Normal. PELVIS: Urinary bladder is normal. Uterus is enlarged. The endometrium is thickened. There appears to be a 2 cm right adnexal cyst. ABDOMINAL WALL: No masses. No hernias. BONES: No significant or acute findings. OTHER: No other significant finding. IMPRESSION: Thickened endometrium. Small right adnexal cyst is almost certainly benign. No additio nal imaging is required for this. No other significant findings in the abdomen or pelvis. TECHNICAL DOCUMENTATION: JOB ID: [id number] Quality ID # [id number]: Final reports with documentation of one or more dose reduction techniques (e.g., Au tomated exposure control, adjustment of the mA and/or kV according to patient size, use of iterative reconstruction technique) 2010 [employer]- All Rights Reserved Reading location - IP/workstation name: [email or web address]
[2019-05-31] MEDS: METRONIDAZOLE 500 MG/NS RTU 500 MG/100 ML RTUPB IV SCH (19:29)
[2019-05-31] MEDS: KETOROLAC TROMETHAMINE INJ/PF 30 MG/1 ML SDV IV SCH (20:22)
[2019-05-31] MEDS ORDERED: ZOLPIDEM TARTRATE 5 MG TABLET PO ONE (23:45)
[2019-05-31] MEDS ORDERED: SIMETHICONE 80 MG TAB.CHEW PO ONE (23:45)
[2019-05-31] MEDS ORDERED: BUPRENORPHINE HCL 2 MG SUBLINGUAL TABLET SL ONE (23:45)
[2019-06-01] MEDS ORDERED: CEFOXITIN INJ 2 GM VIAL ONE (00:40)
[2019-06-01] MEDS: CEFOXITIN INJ 2 GM VIAL IV SCH ×3 (01:07→15:58)
[2019-06-01] MEDS: KETOROLAC TROMETHAMINE INJ/PF 30 MG/1 ML SDV IV SCH ×2 (06:19→15:35)
[2019-06-01 08:23] LABS: ABSOLUTE EOSINOPHILS # (AUTO) 0.3 10^3/uL (0.0-0.6); ABSOLUTE LYMPHOCYTES (AUTO) 2.9 10^3/uL (0.5-4.7); ABSOLUTE MONOCYTES (AUTO) 0.7 10^3/uL (0.1-1.4); ABSOLUTE NEUT (AUTO) 8.9 10^3/uL (1.7-8.2); BASOPHILS % (AUTO) 0.4 % (0-2); EOSINOPHILS % (AUTO) 2.3 % (0-6); HEMATOCRIT 31.5 % (36.0-47.0); HEMOGLOBIN 10.8 g/dL (12.0-15.5); LYMPHOCYTES % (AUTO) 22.4 % (13-45); MEAN CORPUSCULAR HEMOGLOBIN 30.8 pg (27.0-33.4); MEAN CORPUSCULAR HGB CONC 34.2 g/dL (32.0-36.0); MEAN CORPUSCULAR VOLUME 90 fl (80-97); MONOCYTES % (AUTO) 5.3 % (3-13); PLATELET COUNT 277 10^3/uL (150-450); RED CELL DISTRIBUTION WIDTH 13.2 % (11.5-14.0); SEGMENTED NEUTROPHILS % (AUTO) 69.6 % (42-78); TOTAL CELLS COUNTED % (AUTO) 100 %; WHITE BLOOD COUNT 12.8 10^3/uL (4.0-10.5)
[2019-06-01] MEDS: SIMETHICONE 80 MG TAB.CHEW PO SCH ×4 (09:45→21:22)
[2019-06-01] MEDS: DOCUSATE SODIUM 100 MG CAPSULE PO SCH ×2 (09:45→18:32)
[2019-06-01] MEDS: BUPRENORPHINE HCL 2 MG SUBLINGUAL TABLET SL SCH ×2 (09:45→18:32)
[2019-06-01] MEDS: METRONIDAZOLE 500 MG/NS RTU 500 MG/100 ML RTUPB IV SCH ×2 (09:46→18:31)
--- NOTE | 2019-06-01 11:48 | PDOC PROGRESS REPORT ---
Subjective Progress Note for:: 06/01/19 Subjective:: Feels somewhat better today. Pain less. Bleeding like a light period. Some pressure in lower abdomen after voiding She Denies fever, chills, sweats, nausea or vomiting. Denies SE from antibiotics. NO rashes. Still having vaginal discharge with bad odor. Voiding without incidence Reason For Visit: ENDOMETRITIS,S/P IUFD AT 16WKS Physical Exam - Physical Exam Vital Signs: Temp Pulse Resp BP Pulse Ox 97.6 F 78 16 101/53 L 92 06/01/19 11:16 06/01/19 11:16 06/01/19 11:16 06/01/19 11:16 06/01/19 11:16 Intake & Output 05/31/19 06/01/19 06/02/19 06:59 06:59 06:59 Intake Total 1000 Balance 1000 Weight 72.575 kg General appearance: PRESENT: no acute distress, cooperative Respiratory exam: PRESENT: clear to auscultation christian Cardiovascular exam: PRESENT: RRR, +S1, +S2 GI/Abdominal exam: PRESENT: normal bowel sounds, soft, tenderness - mild tenderness to palpation above pubic bone Extremities exam: PRESENT: other - No calf pain or tenderness. NO edema Musculoskeletal exam: PRESENT: full ROM Neurological exam: PRESENT: alert, awake, oriented to person, oriented to place, oriented to time Psychiatric exam: PRESENT: appropriate affect, normal mood Skin exam: PRESENT: dry, warm Result Laboratory Results: 06/01/19 07:58 05/31/19 12:56 05/31/19 05/31/19 05/31/19 12:56 12:56 12:56 WBC 18.3 H RBC 4.06 Hgb 12.3 Hct 36.8 MCV 91 MCH 30.4 MCHC 33.4 RDW 13.1 Plt Count 350 Seg Neutrophils % 83.3 H Sodium 140.8 Potassium 4.4 Chloride 106 Carbon Dioxide 27 Anion Gap 8 BUN 8 Creatinine 0.72 Est GFR ( Amer) > 60 Glucose 79 Lactic Acid Calcium 10.0 Total Bilirubin 0.3 AST 19 Alkaline Phosphatase 61 Total Protein 7.1 Albumin 4.2 Serum HCG, Qual NEGATIVE Urine Color Urine Appearance Urine pH Ur Specific [place] Urine Protein Urine Glucose (UA) Urine Ketones Urine Blood Urine Nitrite Ur Leukocyte Esterase Urine WBC (Auto) Urine RBC (Auto) 01/05/31/19 06/01/19 13:47 14:55 07:58 WBC 12.8 H RBC 3.50 L Hgb 10.8 L Hct 31.5 L MCV 90 MCH 30.8 MCHC 34.2 RDW 13.2 Plt Count 277 Seg Neutrophils % 69.6 Sodium Potassium Chloride Carbon Dioxide Anion Gap BUN Creatinine Est GFR ( Amer) Glucose Lactic Acid 1.9 Calcium Total Bilirubin AST Alkaline Phosphatase Total Protein Albumin Serum HCG, Qual Urine Color YELLOW Urine Appearance SLIGHTLY-CLOUDY Urine pH 5.0 Ur Specific [place] 1.010 Urine Protein NEGATIVE Urine Glucose (UA) NEGATIVE Urine Ketones NEGATIVE Urine Blood LARGE H Urine Nitrite NEGATIVE Ur Leukocyte Esterase LARGE H Urine WBC (Auto) 15 Urine RBC (Auto) 6 Impressions: Abdomen/Pelvis CT 05/31/19 00:00 IMPRESSION: Thickened endometrium. Small right adnexal cyst is almost certainly benign. No additional imaging is required for this. No other signif icant findings in the abdomen or pelvis. Transvaginal US 05/31/19 12:03 IMPRESSION: The endometrium is thickened and heterogeneous. Cannot exclude retained products of conception. Small complex or hemorrhagic cyst on the right ovary. Assessment & Plan - Diagnosis (1) Endometritis following delivery Is this a current diagnosis for this admission?: Yes Plan: -VSS aftebrile -Pain has improved. -Tolerating PO well. -Vaginal bleeding light -WBC down today from 18-->12 -Blood culture pending -Continue triple antibiotics IV for now -Encourage ambulation - Time Time Spent with patient: 15-24 minutes
[2019-06-01] MEDS: DOXYCYCLINE HYCLATE 100 MG in DEXTROSE 5%-WATER 250 ML IV SCH ×2 (12:40→21:21)
[2019-06-01] MEDS: DOXYCYCLINE HYCLATE INJ 100 MG VIAL IV SCH (15:58)
[2019-06-01] MEDS: CEFOXITIN SODIUM 2 GM in DEXTROSE 5%-WATER 100 ML IV SCH ×3 (16:54→23:45)
[2019-06-01] MEDS: ZOLPIDEM TARTRATE 5 MG TABLET PO SCH (21:22)
[2019-06-01] MEDS: ACETAMINOPHEN 1,000 MG/100 ML RTUPB IV PRN (23:34)
[2019-06-02] MEDS: CEFOXITIN SODIUM 2 GM in DEXTROSE 5%-WATER 100 ML IV SCH ×3 (05:14→18:54)
[2019-06-02 08:20] LABS: ABSOLUTE EOSINOPHILS # (AUTO) 0.5 10^3/uL (0.0-0.6); ABSOLUTE LYMPHOCYTES (AUTO) 2.6 10^3/uL (0.5-4.7); ABSOLUTE MONOCYTES (AUTO) 0.6 10^3/uL (0.1-1.4); ABSOLUTE NEUT (AUTO) 5.1 10^3/uL (1.7-8.2); BASOPHILS % (AUTO) 0.5 % (0-2); EOSINOPHILS % (AUTO) 5.3 % (0-6); HEMATOCRIT 30.8 % (36.0-47.0); HEMOGLOBIN 10.4 g/dL (12.0-15.5); LYMPHOCYTES % (AUTO) 29.2 % (13-45); MEAN CORPUSCULAR HGB CONC 33.9 g/dL (32.0-36.0); MEAN CORPUSCULAR VOLUME 91 fl (80-97); MONOCYTES % (AUTO) 7.2 % (3-13); PLATELET COUNT 264 10^3/uL (150-450); RED BLOOD COUNT 3.37 10^6/uL (3.72-5.28); RED CELL DISTRIBUTION WIDTH 13.5 % (11.5-14.0); SEGMENTED NEUTROPHILS % (AUTO) 57.8 % (42-78); TOTAL CELLS COUNTED % (AUTO) 100 %; WHITE BLOOD COUNT 8.9 10^3/uL (4.0-10.5)
[2019-06-02] MEDS: METRONIDAZOLE 500 MG/NS RTU 500 MG/100 ML RTUPB IV SCH ×2 (09:01→17:30)
[2019-06-02] MEDS: SIMETHICONE 80 MG TAB.CHEW PO SCH ×4 (10:10→21:15)
[2019-06-02] MEDS: BUPRENORPHINE HCL 2 MG SUBLINGUAL TABLET SL SCH ×2 (10:10→17:37)
[2019-06-02] MEDS: DOCUSATE SODIUM 100 MG CAPSULE PO SCH ×2 (10:10→17:31)
[2019-06-02] MEDS: DOXYCYCLINE HYCLATE 100 MG in DEXTROSE 5%-WATER 250 ML IV SCH ×2 (11:02→22:20)
[2019-06-02] MEDS: ACETAMINOPHEN 1,000 MG/100 ML RTUPB IV PRN (11:03)
--- NOTE | 2019-06-02 11:48 | PDOC PROGRESS REPORT ---
Subjective Progress Note for:: 06/02/19 Subjective:: Pt states that she feels better today. However, her vaginal bleeding has increased. Her cramping is controlled with IV Tylenol. Patient denies fever/chills, nausea/vomiting, chest pain or shortness of breath. Reason For Visit: ENDOMETRITIS,S/P IUFD AT 16WKS Physical Exam - Physical Exam Vital Signs: Temp Pulse Resp BP Pulse Ox 97.8 F 71 15 105/48 L 97 06/02/19 08:17 06/02/19 08:17 06/02/19 08:17 06/02/19 08:17 06/02/19 08:17 Intake & Output 06/01/19 06/02/19 06/03/19 06:59 06:59 06:59 Intake Total 1000 1340 100 Output Total 0 Balance 1000 1340 100 Weight 72.575 kg 73.1 kg General appearance: PRESENT: no acute distress Respiratory exam: PRESENT: clear to auscultation christian Cardiovascular exam: PRESENT: RRR GI/Abdominal exam: PRESENT: soft - Nontender to palpation Extremities exam: ABSENT: calf tenderness, clubbing, full ROM, joint swelling, pedal edema, tenderness, +1 edema, +2 edema, other Result Laboratory Results: 06/02/19 07:50 05/31/19 12:56 06/02/19 07:50 WBC 8.9 RBC 3.37 L Hgb 10.4 L Hct 30.8 L MCV 91 MCH 31.0 MCHC 33.9 RDW 13.5 Plt Count 264 Seg Neutrophils % 57.8 05/31/19 17:42 Blood Blood Culture (PCR) - Final Streptococcus Species Impressions: Abdomen/Pelvis CT 05/31/19 00:00 IMPRESSION: Thickened endometrium. Small right adnexal cyst is almost certainly benign. No additional imaging is required for this. No other significant findings in the abdomen or pelvis. Transvaginal US 05/31/19 12:03 IMPRESSION: The endometrium is thickened and heterogeneous. Cannot exclude retained products of conception. Small complex or hemorrhagic cyst on the right ovary. Assessment & Plan - Time Time Spent with patient: 15-24 minutes Anticipated discharge: Home Within: within 24 hours - Plan Summary Plan Summary: 1. Continue current care 2. Anticipate discharge tomorrow 3. Monitor vaginal bleeding
[2019-06-02] MEDS: TRAMADOL HCL 50 MG TABLET PO PRN (14:46)
[2019-06-02] MEDS: ZOLPIDEM TARTRATE 5 MG TABLET PO SCH (21:15)
[2019-06-03] MEDS: CEFOXITIN SODIUM 2 GM in DEXTROSE 5%-WATER 100 ML IV SCH ×4 (00:41→18:03)
[2019-06-03] MEDS: TRAMADOL HCL 50 MG TABLET PO PRN ×3 (00:55→17:15)
--- NOTE | 2019-06-03 06:59 | PDOC DISCHARGE SUMMARY ---
Impression - Admit/DC Date/PCP Admission Date/Primary Care Provider: 05/31/19 17:50 CHARLEY HENDRIX MD Discharge Date: 06/03/19 - Discharge Diagnosis (1) Endometritis following delivery Is this a current diagnosis for this admission?: Yes - Additional Information Resuscitation Status: Full Code Discharge Diet: Regular Discharge Activity: Activity As Tolerated, Pelvic Rest Referrals: XAVI NIETO MD [ACTIVE STAFF] - Follow up as needed Prescriptions: Tramadol HCl [Ultram 50 mg Tablet] 50 mg PO Q6HP PRN #30 tablet PRN Reason: Abdominal Cramping Doxycycline Hyclate [Vibramycin Inj 100 mg Vial] 100 mg PO Q12 #14 vial Home Medications: Buprenorphine HCl [Subutex 8 mg Sublingual Tablet] 8 mg PO Q12 05/31/19 Doxycycline Hyclate [Vibramycin Inj 100 mg Vial] 100 mg PO Q12 #14 vial 06/03/19 Tramadol HCl [Ultram 50 mg Tablet] 50 mg PO Q6HP PRN #30 tablet 06/03/19 History of Present Illiness History of Present Illness: YULIYA LALA is a 33 year old -0-1-2 with a recent intrauterine demise at 16 weeks presented to [facility] emergency department complaining of severe lower abdominal cramping and fever. Patient also stated that she had a foul vaginal odor. This patient had delivery of a 16-week demise on May 07. She had a large leukocytosis upon admission but remained afebrile. Hospital Course Hospital Course: Hospital course was essentially uneventful. By hospital day #2 her leukocytosis had almost resolved. However, on day #2 the patient started having moderately heavy vaginal bleeding which is now almost sided. She remained afebrile during her course of antibiotics. Physical Exam - Physical Exam Vital Signs: Temp Pulse Resp BP Pulse Ox 97.8 F 78 18 108/66 98 06/03/19 01:14 06/03/19 01:14 06/03/19 01:14 06/03/19 01:14 06/03/19 01:14 Intake & Output 06/01/19 06/02/19 06/03/19 06:59 06:59 06:59 Intake Total 1000 1340 750 Output Total 0 Balance 1000 1340 750 Weight 72.575 kg 73.1 kg General appearance: PRESENT: no acute distress Respiratory exam: PRESENT: clear to auscultation christian Cardiovascular exam: PRESENT: RRR GI/Abdominal exam: PRESENT: soft - Nontender Extremities exam: ABSENT: calf tenderness, clubbing, full ROM, joint swelling, pedal edema, tenderness, +1 edema, +2 edema, other Results Laboratory Results: WBC 8.9 10^3/uL (4.0-10.5) 06/02/19 07:50 RBC 3.37 10^6/uL (3.72-5.28) L 06/02/19 07:50 Hgb 10.4 g/dL (12.0-15.5) L 06/02/19 07:50 Hct 30.8 % (36.0-47.0) L 06/02/19 07:50 MCV 91 fl (80-97) 06/02/19 07:50 MCH 31.0 pg (27.0-33.4) 06/02/19 07:50 MCHC 33.9 g/dL (32.0-36.0) 06/02/19 07:50 RDW 13.5 % (11.5-14.0) 06/02/19 07:50 Plt Count 264 10^3/uL (150-450) 06/02/19 07:50 Lymph % (Auto) 29.2 % (13-45) 06/02/19 07:50 [place] % (Auto) 7.2 % (3-13) 06/02/19 07:50 Eos % (Auto) 5.3 % (0-6) 06/02/19 07:50 Baso % (Auto) 0.5 % (0-2) 06/02/19 07:50 Absolute Neuts (auto) 5.1 10^3/uL (1.7-8.2) 06/02/19 07:50 Absolute Lymphs (auto) 2.6 10^3/uL (0.5-4.7) 06/02/19 07:50 Absolute Monos (auto) 0.6 10^3/uL (0.1-1.4) 06/02/19 07:50 Absolute Eos (auto) 0.5 10^3/uL (0.0-0.6) 06/02/19 07:50 Absolute Basos (auto) 0.0 10^3/uL (0.0-0.2) 06/02/19 07:50 Seg Neutrophils % 57.8 % (42-78) 06/02/19 07:50 Sodium 140.8 mmol/L (137-145) 05/31/19 12:56 Potassium 4.4 mmol/L (3.6-5.0) 05/31/19 12:56 Chloride 106 mmol/L (98-107) 05/31/19 12:56 Carbon Dioxide 27 mmol/L (22-30) 05/31/19 12:56 Anion Gap 8 (5-19) 05/31/19 12:56 BUN 8 mg/dL (7-20) 05/31/19 12:56 Creatinine 0.72 mg/dL (0.52-1.25) 05/31/19 12:56 Est GFR ( Amer) > 60 (>60) 05/31/19 12:56 Est GFR (MDRD) Non-Af > 60 (>60) 05/31/19 12:56 Glucose 79 mg/dL (75-110) 05/31/19 12:56 Lactic Acid 1.9 mmol/L (0.7-2.1) 05/31/19 14:55 Calcium 10.0 mg/dL (8.4-10.2) 05/31/19 12:56 Total Bilirubin 0.3 mg/dL (0.2-1.3) 05/31/19 12:56 Direct Bilirubin 0.0 mg/dL (0.0-0.4) 05/31/19 12:56 Neonat Total Bilirubin Not Reportable 05/31/19 12:56 Neonat Direct Bilirubin Not Reportable 05/31/19 12:56 Neonat Indirect Bili Not Reportable 05/31/19 12:56 AST 19 U/L (14-36) 05/31/19 12:56 ALT 14 U/L (<35) 05/31/19 12:56 Alkaline Phosphatase 61 U/L (38-126) 05/31/19 12:56 Total Protein 7.1 g/dL (6.3-8.2) 05/31/19 12:56 Albumin 4.2 g/dL (3.5-5.0) 05/31/19 12:56 Serum HCG, Qual NEGATIVE (NEGATIVE) 05/31/19 12:56 Beta HCG, Quant 4.25 mIU/mL (0.0-6.15) 05/31/19 12:56 Total Beta HCG NEGATIVE (NEGATIVE) 05/31/19 12:56 Urine Color YELLOW 05/31/19 13:47 Urine Appearance SLIGHTLY-CLOUDY 05/31/19 13:47 Urine pH 5.0 (5.0-9.0) 05/31/19 13:47 Ur Specific [place] 1.010 05/31/19 13:47 Urine Protein NEGATIVE mg/dL (NEGATIVE) 05/31/19 13:47 Urine Glucose (UA) NEGATIVE mg/dL (NEGATIVE) 05/31/19 13:47 Urine Ketones NEGATIVE mg/dL (NEGATIVE) 05/31/19 13:47 Urine Blood LARGE (NEGATIVE) H 05/31/19 13:47 Urine Nitrite NEGATIVE (NEGATIVE) 05/31/19 13:47 Urine Bilirubin NEGATIVE (NEGATIVE) 05/31/19 13:47 Urine Urobilinogen NEGATIVE mg/dL (<2.0) 05/31/19 13:47 Ur Leukocyte Esterase LARGE (NEGATIVE) H 05/31/19 13:47 Urine WBC (Auto) 15 /HPF 05/31/19 13:47 Urine RBC (Auto) 6 /HPF 05/31/19 13:47 Urine Bacteria (Auto) TRACE /HPF 05/31/19 13:47 Squamous Epi Cells Auto 5 /HPF 05/31/19 13:47 Urine Mucus (Auto) FEW /LPF 05/31/19 13:47 Urine Ascorbic Acid NEGATIVE (NEGATIVE) 05/31/19 13:47 Bacteria (Wet Prep) 4+ BACTERIA SEEN 05/31/19 14:16 Trichomonas (Wet Prep) NO TRICHOMONAS SEEN 05/31/19 14:16 Vaginal WBC 3+ WBCS SEEN 05/31/19 14:16 Vaginal RBC 1+ RBCS SEEN 05/31/19 14:16 Vaginal Yeast NO YEAST SEEN 05/31/19 14:16 Chlamydia DNA (PCR) NOT DETECTED (NOT DETECT) 05/31/19 14:16 N.gonorrhoeae DNA (PCR) NOT DETECTED (NOT DETECT) 05/31/19 14:16 Impressions: Abdomen/Pelvis CT 05/31/19 00:00 IMPRESSION: Thickened endometrium. Small right adnexal cyst is almost certainly benign. No additional imaging is required for this. No other significant findings in the abdomen or pelvis. Transvaginal US 05/31/19 12:03 IMPRESSION: The endometrium is thickened and heterogeneous. Cannot exclude retained products of conception. Small complex or hemorrhagic cyst on the right ovary. Plan Plan of Treatment: 1. Discharge home today 2. Prescriptions for doxycycline, tramadol and Diflucan 3. Follow-up in the office in 4 weeks for exam Stroke Is this a Stroke Patient?: No Acute Heart Failure - Is this a Heart Failure Patient?: No
--- NOTE | 2019-06-03 08:55 | Progress Note ---
Provider Note Provider Note: [facility] ID Telephone Advice Consultation Chart reviewed. This is a 33 year-old woman who recently had demise and delivery on 04/17. She was admitted on 05/31 after she started presenting vaginal bleeding, foul smelling discharge and worsening abdominal pain. She was admitted and was found bacteremic with Streptococcus spp in set of blood cultures. She had a transvaginal US that demonstrated thickened endometrium and heterogeneous, can't rule out retained product of conception. SHe wa started on cefoxitin, metronidazole and doxycycline. She is afebrile and HD stable, leukocytosis resolved. No new blood cultures to document clearance of bacteremia. ID consulted for recommendations. PMH: Previous IVDU Depression Heart Murmur PSH: Diagnostic laparoscopy Allergies: No Known Allergies Allergy (Verified 05/31/19 12:01) Medications: Buprenorphine HCl [Subutex 8 mg Sublingual Tablet] 8 mg PO Q12 05/31/19 Vital Signs: Temp Pulse Resp BP Pulse Ox 98.0 F 70 18 103/57 L 98 06/03/19 08:24 06/03/19 08:24 06/03/19 08:24 06/03/19 08:24 06/03/19 08:24 Intake & Output 06/02/19 06/03/19 06/04/19 06:59 06:59 06:59 Intake Total 1340 750 Output Total 0 Balance 1340 750 Weight 73.1 kg Weight/Height Weight 73.1 kg Height 5 ft 5 in Laboratories: 06/02/19 07:50 05/31/19 12:56 MCV 91 fl (80-97) 06/02/19 07:50 MCH 31.0 pg (27.0-33.4) 06/02/19 07:50 MCHC 33.9 g/dL (32.0-36.0) 06/02/19 07:50 RDW 13.5 % (11.5-14.0) 06/02/19 07:50 Seg Neutrophils % 57.8 % (42-78) 06/02/19 07:50 Chloride 106 mmol/L (98-107) 05/31/19 12:56 Carbon Dioxide 27 mmol/L (22-30) 05/31/19 12:56 Anion Gap 8 (5-19) 05/31/19 12:56 Est GFR ( Amer) > 60 (>60) 05/31/19 12:56 Glucose 79 mg/dL (75-110) 05/31/19 12:56 Lactic Acid 1.9 mmol/L (0.7-2.1) 05/31/19 14:55 Calcium 10.0 mg/dL (8.4-10.2) 05/31/19 12:56 Total Bilirubin 0.3 mg/dL (0.2-1.3) 05/31/19 12:56 AST 19 U/L (14-36) 05/31/19 12:56 Alkaline Phosphatase 61 U/L (38-126) 05/31/19 12:56 Total Protein 7.1 g/dL (6.3-8.2) 05/31/19 12:56 Albumin 4.2 g/dL (3.5-5.0) 05/31/19 12:56 Serum HCG, Qual NEGATIVE (NEGATIVE) 05/31/19 12:56 Urine Color YELLOW 05/31/19 13:47 Urine Appearance SLIGHTLY-CLOUDY 05/31/19 13:47 Urine pH 5.0 (5.0-9.0) 05/31/19 13:47 Ur Specific [place] 1.010 05/31/19 13:47 Urine Protein NEGATIVE mg/dL (NEGATIVE) 05/31/19 13:47 Urine Glucose (UA) NEGATIVE mg/dL (NEGATIVE) 05/31/19 13:47 Urine Ketones NEGATIVE mg/dL (NEGATIVE) 05/31/19 13:47 Urine Blood LARGE (NEGATIVE) H 05/31/19 13:47 Urine Nitrite NEGATIVE (NEGATIVE) 05/31/19 13:47 Ur Leukocyte Esterase LARGE (NEGATIVE) H 05/31/19 13:47 Urine WBC (Auto) 15 /HPF 05/31/19 13:47 Urine RBC (Auto) 6 /HPF 05/31/19 13:47 05/31/19 17:42 Blood Blood Culture (PCR) - Final Streptococcus Species Radiology: Abdomen/Pelvis CT 05/31/19 00:00 IMPRESSION: Thickened endometrium. Small right adnexal cyst is almost certainly benign. No additional imaging is required for this. No other significant findings in the abdomen or pelvis. Transvaginal US 05/31/19 12:03 IMPRESSION: The endometrium is thickened and heterogeneous. Cannot exclude retained products of conception. Small complex or hemorrhagic cyst on the right ovary. Assessment and Recommendations: Patient presenting with endometritis after demise. She is bacteremic with Streptococcus spp in 1 set of blood cultures. She has received IV antibiotics for 3 days with good clinical response. Will recommend to repeat blood cultures to document clearance of bacteremia and a TTE as she has a heart murmur and this bacteria can seed an abnormal valve and cause endocarditis. In terms of antibiotic therapy, ceftriaxone with metronidazole should cover most bacteria causing endometritis and most Streptococcus species. Duration of therapy should be 14 days. If patient to be discharged before this work up is done, can then consider adding Augmentin 500/125 mg tid x 10 more days (not standard of care as she was bacteremic, but if she will leave today, this will treat this better nicolas n doxycycline alone). Please call if questions. Radha Lerma MD [facility] [phone]
[2019-06-03] MEDS ORDERED: IRON SUCROSE COMPLEX INJ/PF 100 MG/5 ML SDV IV ONE (09:00)
[2019-06-03] MEDS: SIMETHICONE 80 MG TAB.CHEW PO SCH ×4 (09:46→21:53)
[2019-06-03] MEDS: BUPRENORPHINE HCL 2 MG SUBLINGUAL TABLET SL SCH ×2 (09:46→17:16)
[2019-06-03] MEDS: DOCUSATE SODIUM 100 MG CAPSULE PO SCH ×2 (09:46→17:15)
[2019-06-03] MEDS: METRONIDAZOLE 500 MG/NS RTU 500 MG/100 ML RTUPB IV SCH ×2 (10:06→17:55)
[2019-06-03] MEDS: DOXYCYCLINE HYCLATE 100 MG in DEXTROSE 5%-WATER 250 ML IV SCH ×2 (10:06→21:57)
--- NOTE | 2019-06-03 16:01 | RADIOLOGY REPORT (SQ) ---
EXAM DESCRIPTION: PICC INSERTION; FLUORO/CV PLACEMENT; U/S GUIDE FOR VASCULAR ACCESS COMPLETED DATE/TIME: 06/03/2019 2:58 pm REASON FOR STUDY: need IV antibiotics, poor access; IV ABX COMPARISON: None. FLUOROSCOPY TIME: 0.38 minutes. 3 images submitted to PACS. TECHNIQUE: Placement of a PICC utilizing fluoroscopic and sonographic guidance. LIMITATIONS: None. PROCEDURE: The procedure, risks, benefits, and alternatives were discussed with the patient in the p reprocedural area, and all questions were answered. Informed consent was obtained verbally and in wri ting. The patient was then brought to the procedural suite, positioned supine on the fluoroscopy table, and a time-out was performed. At first the left upper extremity was evaluated with ultrasound and the brachial vein was found to be patent and compressible. The left upper extremity was then prepped and draped with 2% chlorhexidine utilizing standard sterile technique. After the skin over the brachial vein was anesthetized with 1% lidocaine, ultrasound guidance was used to access the vessel with a 21-gauge needle - a sonographic i mage was stored for documentation. A 0.018 inch guidewire was then inserted through the needle and ad vanced under fluoroscopic guidance into the SVC. After that, the needle was exchanged over the guidew geovany for a peel-away sheath. A 5 Ukrainian double -lumen PICC was then cut to the appropriate length of 3 6 cm, inserted through the sheath and advanced under fluoroscopic guidance into the SVC. After that, the peel-away sheath was removed and a fluoroscopic image of the chest was obtained to confirm proper position of the catheter tip within SVC. The lumens of the PICC were then aspirated, flushed with sterile saline and heparinized. At the end of the procedure the PICC was secured in place and a sterile dressing applied over it. The patient tolerated the procedure well without immediate complication. At the end of the procedure the patient's condition was unchanged from the preprocedural baseline. No IV conscious sedation was administered. Physiologic monitoring was provided before, during, and after the procedure. Documentation of [id number] time performing proceduralist spent monitoring the patient: 15 minutes. IMPRESSION: Successful placement of a 5 Ukrainian x 36 cm double-lumen left upper extremity PICC. COMMENT: Patient medication list reviewed: Yes- Quality ID# [id number]:Eligible professional attests to doc enting in the medical record they obtained, updated, or reviewed the patient's current medications. . Quality ID 145: Final reports for procedures using fluoroscopy that document radiation exposure poonam laurence, or exposure time and number of fluorographic images (if radiation exposure indices are not avail able) Quality ID #[id number]: The patient was prepped and draped using maximum sterile barrier technique including cap, mask, sterile gown, sterile gloves, a large sterile sheet, hand hygiene, and 2% Chlorhexidine fo r cutaneous antisepsis. When ultrasound is used, sterile ultrasound techniques are followed requiring sterile gel and sterile probes. TECHNICAL DOCUMENTATION: JOB ID: [id number] [employer]- All Rights Reserved rev-09/25 Reading location - IP/workstation name: [email or web address]
--- NOTE | 2019-06-03 16:47 | PDOC PROGRESS REPORT ---
Subjective Progress Note for:: 06/03/19 Subjective:: fatigue, denies fevers/chills, feels better. Reviewed with patient regarding cancelled discharge due to positive blood cultures and need for continued IV abx until blood cultures negative. Pt is a hard IV start and reports that she has lost multiple IVs. Reason For Visit: ENDOMETRITIS,S/P IUFD AT 16WKS, Bacteremia Physical Exam - Physical Exam Vital Signs: Temp Pulse Resp BP Pulse Ox 98.4 F 108 H 16 122/65 98 06/03/19 11:00 06/03/19 11:00 06/03/19 11:00 06/03/19 11:00 06/03/19 11:00 Intake & Output 06/02/19 06/03/19 06/04/19 06:59 06:59 06:59 Intake Total 1340 750 Output Total 0 Balance 1340 750 Weight 73.1 kg 72.439 kg General appearance: PRESENT: no acute distress, well-developed, well-nourished Head exam: PRESENT: atraumatic, normocephalic Respiratory exam: PRESENT: clear to auscultation christian, symmetrical, unlabored Cardiovascular exam: PRESENT: RRR. ABSENT: diastolic murmur, rubs, systolic murmur Pulses: PRESENT: normal dorsalis pedis pul, +2 pedal pulses bilateral Rectal exam: PRESENT: deferred Extremities exam: PRESENT: full ROM. ABSENT: calf tenderness, clubbing, pedal edema Neurological exam: PRESENT: alert, awake, oriented to person, oriented to place, oriented to time, oriented to situation, CN II-XII grossly intact. ABSENT: motor sensory deficit Psychiatric exam: PRESENT: appropriate affect, normal mood. ABSENT: homicidal ideation, suicidal ideation Skin exam: PRESENT: dry, intact, warm. ABSENT: cyanosis, rash Result Laboratory Results: 06/02/19 07:50 05/31/19 12:56 05/31/19 17:42 Blood Blood Culture (PCR) - Final Streptococcus Species 05/31/19 17:42 Blood Blood Culture - Final Streptococcus Salivarius Impressions: Abdomen/Pelvis CT 05/31/19 00:00 IMPRESSION: Thickened endometrium. Small right adnexal cyst is almost certainly benign. No additional imaging is required for this. No other significant findings in the abdomen or pelvis. Transvaginal US 05/31/19 12:03 IMPRESSION: The endometrium is thickened and heterogeneous. Cannot exclude retained products of conception. Small complex or hemorrhagic cyst on the right ovary. Guidance Fluoroscopy 06/03/19 00:00 IMPRESSION: Successful placement of a 5 Ethiopian x 36 cm double-lumen left upper extremity PICC. Interventional Vascular Procedure 06/03/19 00:00 IMPRESSION: Successful placement of a 5 Ethiopian x 36 cm double-lumen left upper extremity PICC. PICC Line Insertion 06/03/19 13:40 IMPRESSION: Successful placement of a 5 Ethiopian x 36 cm double-lumen left upper extremity PICC. Status: Imported from PACS Assessment & Plan - Diagnosis (1) Endometritis following delivery Is this a current diagnosis for this admission?: Yes Plan: Continue Mefoxitin/Doxycycline/Flagyl IV until Blood cultures repeated and returned. Appreciate ID noted and appreciate their help via phone. (2) Intrauterine before 20 weeks of gestation Is this a current diagnosis for this admission?: Yes Plan: reviewed APAS w/u. Pt declined chromosomes. Plan APAS w/u as outpatient (3) Bacteremia Is this a current diagnosis for this admission?: Yes Plan: continue IV antibiotics. Repeat blood cultures done - pending. PICC line and ECHO done. - Time Time Spent with patient: 25-34 minutes Medications reviewed and adjusted accordingly: Yes Anticipated discharge: Home Within: within 72 hours - Inpatient Certification Based on my medical assessment, after consideration of the patient's thien rbidities, presenting symptoms, or acuity I expect that the services needed warrant INPATIENT care.: Yes I certify that my determination is in accordance with my understanding of Medicare's requirements for reasonable and necessary INPATIENT services [42 CFR 412.3e].: Yes Medical Necessity: Need Close Monitoring Due to Risk of Patient Decompensation, Need For IV Fluids, Need for IV Antibiotics, Risk of Complication if Not Cared For in Hospital Post Hospital Care: D/C Supervisor Body Assembly Documentation
[2019-06-03] MEDS ORDERED: DIPHENHYDRAMINE HCL 25 MG CAPSULE PO PRN (17:42)
[2019-06-03] MEDS ORDERED: HYDROCORTISONE 1% CREAM 28.35 GM TP PRN (17:42)
--- NOTE | 2019-06-03 18:04 | XCELERA REPORT ---
[address] [address] Transthoracic Echocardiogram Report Name: YULIYA LALA Age: 33 yrs Gender: Female : 1985 Patient Status: Inpatient Patient Location: [facility]^B Study Date: 06/03/2019 03:05 PM Height: 65 in Weight: 159 lb BSA: 1.8 m2 Reason For Study: bacteremia, h/o drug use, endometritis Ordering Physician: CHARLEY HENDRIX Performed By: Modesto Escobar Interpretation Summary Except for PV not visualised, no vegetations seen on AV, MV, or TV. Min post peric. effusion. Ao root not enlarged, not calcified. AV configuration not weel seen , prob 3 cusps, with no thickening or calcification and no stenosis and no AR. No MAC, no MS< no MVP, Trace/mild MV, with no LA enlargement. TV trace TR, RVSP derived at 20 mm Hg prob no pulm hypertension. no RH enlargement. No ASD. LV is normal size, not enlarged, LVEF visually 65-70 %, with no LVDD. No segmental regional wall motion abnormality. MMode/2D Measurements & Calculations RVDd: 2.1 cm LVIDd: 4.8 cm FS: 39.0 % Ao root diam: 2.3 cm IVSd: 0.86 cm LVIDs: 2.9 cm EDV(Teich): 108.8 ml LVPWd: 0.91 cm ESV(Teich): 33.4 ml Ao root area: 4.0 cm2 LA dimension: 2.5 cm EF(Teich): 69.3 % Doppler Measurements & Calculations MV E max nabila: MV P1/2t max nabila: Ao V2 max: LV V1 max P.9 cm/sec 117.4 cm/sec 134.1 cm/sec 3.2 mmHg MV A max nabila: MV P1/2t: 55.6 msec Ao max P.2 mmHg LV V1 max: 82.9 cm/sec MVA(P1/2t): 4.0 cm2 89.8 cm/sec MV E/A: 1.0 MV dec slope: 618.3 cm/sec2 MV dec time: 0.21 sec PA V2 max: TR max nabila: MV P1/2t-pr_phl: 80.5 cm/sec 217.2 cm/sec 55.6 msec PA max PG: TR max P.9 mmHg 2.6 mmHg I WMSI = 1.00 % Normal = 100 Segments Size X - Cannot 2 - 4 - 1-2 small Interpret 1 - Normal Hypokinetic 3 - AkineticDyskinetic 3-5 moderate 5 - 6-14 large Aneurysmal 15-16 diffuse : CHARLEY HENDRIX Andre
[2019-06-03] MEDS: NORMAL SALINE 10 ML SDV (AFTER EACH USE) IV PRN (19:07)
[2019-06-03] MEDS: ZOLPIDEM TARTRATE 5 MG TABLET PO SCH (21:53)
[2019-06-03] MEDS: NICOTINE 7 MG/24 HR PATCH.TD24 TD SCH (21:54)
[2019-06-03] MEDS: NORMAL SALINE 10 ML SDV (SCHEDULED) IV SCH (23:57)
[2019-06-04] MEDS: CEFOXITIN SODIUM 2 GM in DEXTROSE 5%-WATER 100 ML IV SCH ×4 (00:02→19:25)
[2019-06-04] MEDS: TRAMADOL HCL 50 MG TABLET PO PRN ×2 (00:19→08:10)
[2019-06-04] MEDS: NORMAL SALINE 10 ML SDV (AFTER EACH USE) IV PRN ×2 (01:39→07:00)
[2019-06-04] MEDS: NORMAL SALINE 10 ML SDV (SCHEDULED) IV SCH ×3 (01:41→23:03)
[2019-06-04] MEDS: ACETAMINOPHEN 1,000 MG/100 ML RTUPB IV PRN (08:23)
[2019-06-04] MEDS: DOXYCYCLINE HYCLATE 100 MG in DEXTROSE 5%-WATER 250 ML IV SCH ×2 (09:28→22:51)
[2019-06-04] MEDS: BUPRENORPHINE HCL 2 MG SUBLINGUAL TABLET SL SCH ×2 (09:39→17:03)
[2019-06-04] MEDS: SIMETHICONE 80 MG TAB.CHEW PO SCH ×4 (09:39→22:53)
[2019-06-04] MEDS: ALPRAZOLAM 0.25 MG TABLET PO PRN ×2 (09:39→19:25)
[2019-06-04] MEDS: DOCUSATE SODIUM 100 MG CAPSULE PO SCH ×2 (09:39→17:03)
--- NOTE | 2019-06-04 09:45 | PDOC PROGRESS REPORT ---
Subjective Progress Note for:: 06/04/19 Subjective:: feeling much better. pain improved. concerned regarding echo results. Reason For Visit: ENDOMETRITIS,S/P IUFD AT 16WKS Physical Exam - Physical Exam Vital Signs: Temp Pulse Resp BP Pulse Ox 98.0 F 75 16 104/51 L 97 06/04/19 08:22 06/04/19 08:22 06/04/19 08:22 06/04/19 08:22 06/04/19 08:22 Intake & Output 06/03/19 06/04/19 06/05/19 06:59 06:59 06:59 Intake Total 850 750 100 Balance 850 750 100 Weight 72.43 kg General appearance: PRESENT: no acute distress, cooperative GI/Abdominal exam: PRESENT: soft - nontender and nondistended Result Laboratory Results: 06/02/19 07:50 05/31/19 12:56 05/31/19 17:42 Blood Blood Culture (PCR) - Final Streptococcus Species 05/31/19 17:42 Blood Blood Culture - Final Streptococcus Salivarius Impressions: Abdomen/Pelvis CT 05/31/19 00:00 IMPRESSION: Thickened endometrium. Small right adnexal cyst is almost certainly benign. No additional imaging is required for this. No other significant findings in the abdomen or pelvis. Transvaginal US 05/31/19 12:03 IMPRESSION: The endometrium is thickened and heterogeneous. Cannot exclude retained products of conception. Small complex or hemorrhagic cyst on the right ovary. Guidance Fluoroscopy 06/03/19 00:00 IMPRESSION: Successful placement of a 5 East Timorese x 36 cm double-lumen left upper extremity PICC. Interventional Vascular Procedure 06/03/19 00:00 IMPRESSION: Successful placement of a 5 [place]orese x 36 cm double-lumen left upper extremity PICC. PICC Line Insertion 06/03/19 13:40 IMPRESSION: Successful placement of a 5 [place]orese x 36 cm double-lumen left upper extremity PICC. Assessment & Plan - Diagnosis (1) Bacteremia Is this a current diagnosis for this admission?: Yes (2) Endometritis following delivery Is this a current diagnosis for this admission?: Yes (3) PID (acute pelvic inflammatory disease) Is this a current diagnosis for this admission?: Yes - Time Time Spent with patient: Less than 15 minutes Medications reviewed and adjusted accordingly: Yes Anticipated discharge: Home Within: within 72 hours - Plan Summary Plan Summary: awaiting results of latest set of blood cultures. will continue with IV antibioti cs per ID recommendations (thank you for your assistance) until BC results are in. At that time if results are reassuring can consider going home on PO antibiotics of Augmentin and Doxycycline.
[2019-06-04] MEDS: NICOTINE 7 MG/24 HR PATCH.TD24 TD SCH (09:51)
[2019-06-04] MEDS: METRONIDAZOLE 500 MG/NS RTU 500 MG/100 ML RTUPB IV SCH ×2 (11:32→17:04)
[2019-06-04] MEDS: ZOLPIDEM TARTRATE 5 MG TABLET PO SCH (22:53)
[2019-06-05] MEDS: CEFOXITIN SODIUM 2 GM in DEXTROSE 5%-WATER 100 ML IV SCH ×3 (00:56→12:30)
[2019-06-05] MEDS: METRONIDAZOLE 500 MG/NS RTU 500 MG/100 ML RTUPB IV SCH (09:50)
[2019-06-05] MEDS: BUPRENORPHINE HCL 2 MG SUBLINGUAL TABLET SL SCH (09:51)
[2019-06-05] MEDS: SIMETHICONE 80 MG TAB.CHEW PO SCH ×2 (09:51→13:13)
[2019-06-05] MEDS: DOCUSATE SODIUM 100 MG CAPSULE PO SCH (09:51)
[2019-06-05] MEDS: NICOTINE 7 MG/24 HR PATCH.TD24 TD SCH (10:06)
[2019-06-05] MEDS: ALPRAZOLAM 0.25 MG TABLET PO PRN (10:06)
[2019-06-05] MEDS: TRAMADOL HCL 50 MG TABLET PO PRN (12:30)
[2019-06-05] MEDS: DOXYCYCLINE HYCLATE 100 MG in DEXTROSE 5%-WATER 250 ML IV SCH (13:13)
--- NOTE | 2019-06-05 14:21 | PDOC PROGRESS REPORT ---
Subjective Progress Note for:: 06/05/19 Subjective:: fatigue improved, denies fevers/chills, feels better. Reviewed with patient regardingprior positive blood cultures and need for continued IV abx until blood cultures negative which should be this evening. Pt is a hard IV start and reports that she has lost multiple IVs so d/w patient on thursday and PICC line was placed. Reviewed no unescorted trips off unit with patient and family. She has questions about HSV titers Reason For Visit: ENDOMETRITIS,S/P IUFD AT 16WKS Physical Exam - Physical Exam Vital Signs: Temp Pulse Resp BP Pulse Ox 97.9 F 67 17 110/57 L 99 06/05/19 12:00 06/05/19 12:00 06/05/19 12:00 06/05/19 12:00 06/05/19 12:00 Intake & Output 06/04/19 06/05/19 06/06/19 06:59 06:59 06:59 Intake Total 750 1700 Balance 750 1700 Weight 72.43 kg 74.1 kg General appearance: PRESENT: no acute distress, well-developed, well-nourished Respiratory exam: PRESENT: clear to auscultation christian, symmetrical, unlabored Pulses: PRESENT: normal dorsalis pedis pul, +2 pedal pulses bilateral GI/Abdominal exam: PRESENT: normal bowel sounds, soft. ABSENT: distended, guarding, mass, organolmegaly, rebound, tenderness Rectal exam: PRESENT: deferred Extremities exam: PRESENT: full ROM. ABSENT: calf tenderness, clubbing, pedal edema Neurological exam: PRESENT: alert, awake, oriented to person, oriented to place, oriented to time, oriented to situation, CN II-XII grossly intact. ABSENT: motor sensory deficit Psychiatric exam: PRESENT: appropriate affect, normal mood. ABSENT: homicidal ideation, suicidal ideation Skin exam: PRESENT: dry, intact, warm. ABSENT: cyanosis, rash Result Laboratory Results: 06/02/19 07:50 05/31/19 12:56 Impressions: Abdomen/Pelvis CT 05/31/19 00:00 IMPRESSION: Thickened endometrium. Small right adnexal cyst is almost certainly benign. No additional imaging is required for this. No other significant findings in the abdomen or pelvis. Transvaginal US 05/31/19 12:03 IMPRESSION: The endometrium is thickened and heterogeneous. Cannot exclude r etained products of conception. Small complex or hemorrhagic cyst on the right ovary. Guidance Fluoroscopy 06/03/19 00:00 IMPRESSION: Successful placement of a 5 Libyan x 36 cm double-lumen left upper extremity PICC. Interventional Vascular Procedure 06/03/19 00:00 IMPRESSION: Successful placement of a 5 Libyan x 36 cm double-lumen left upper extremity PICC. PICC Line Insertion 06/03/19 13:40 IMPRESSION: Successful placement of a 5 Libyan x 36 cm double-lumen left upper extremity PICC. Assessment & Plan - Diagnosis (1) Endometritis following delivery Is this a current diagnosis for this admission?: Yes Plan: Continue Iv abx until both cultures negative (which should be this evening). (2) Intrauterine before 20 weeks of gestation Is this a current diagnosis for this admission?: Yes Plan: Pt had desires infection labs with recent IUFD - these were done on prior admission. HSV 1 IgM negative, HSV I IgG positive, HSV I IgM negative, HSV II IgG negative. Extensive discussion with patient that this appears to be not an acute Infection as IgM is negative. However, unable to definitively say if patient has oral or genital HSV based on type I or II - reviewed reason why this is (oral-sexual practices of indivuals and and population as a whole). Reviewed with patient she she has never had an oral or genital outbreak in the past. Reviewed that she may never have one but would recommend suppression at 35wks in future . Pt was misdirected previously regarding HPV and HSV. She reports that she had genital HPV and reviewed that it is not the same as HSV. Pt also apparently thought that pap smear meant her genital warts were gone. I reviewed with her HPV subtypes and attempted to answer all of her questions. (3) Bacteremia Is this a current diagnosis for this admission?: Yes Plan: Blood cultures return at noon and then again at 1800 - if negative - ok to pull PICC line and send home on po antibiotics. 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 Tylenol ok for pain. - Time Time Spent with patient: 35 or more minutes Medications reviewed and adjusted accordingly: Yes Anticipated discharge: Home Within: within 24 hours - Inpatient Certification Based on my medical assessment, after consideration of the patient's comorbidities, presenting symptoms, or acuity I expect that the services needed warrant INPATIENT care.: Yes I certify that my determination is in accordance with my understanding of Medicare's requirements for reasonable and necessary INPATIENT services [42 CFR 412.3e].: Yes Medical Necessity: Need For IV Fluids, Need for IV Antibiotics
--- NOTE | 2019-06-05 14:56 | PDOC DISCHARGE SUMMARY ---
Impression - Admit/DC Date/PCP Admission Date/Primary Care Provider: 05/31/19 17:50 CHARLEY HENDRIX MD Discharge Date: 06/05/19 - Discharge Diagnosis (1) Endometritis following delivery Is this a current diagnosis for this admission?: Yes (2) Intrauterine before 20 weeks of gestation Is this a current diagnosis for this admission?: No (3) Bacteremia Is this a current diagnosis for this admission?: Yes - Assessment Summary: 33yo readmitted after IUFD at 16+4ega (on 05/07/2019) for endometritis and noted to have bacteremia. Abx started and continued through repeat blood cultures. PICC line obtained for IV abx due to multiple lost IVs and difficult IV stick. Now blood cultures x 2 (repeat set) are negative at 48 hours and discharge recommended. PICC line to be removed prior to discharge and patient to go home on po abx as per ID. We appreciate their assistance with patient. - Additional Information Resuscitation Status: Full Code Discharge Diet: Regular Discharge Activity: Activity As Tolerated, Pelvic Rest Referrals: [facility] [Provider Group] (Please follow up at [facility] on or thursday. If you have any questions please call the office directly at .) Prescriptions: Amoxicillin/Potassium Clav [Augmentin 500-125 Tablet] 1 each PO TID 10 Days #30 tablet Docusate Sodium [Colace 100 mg Capsule] 100 mg PO BID #60 capsule Fluconazole [Diflucan] 150 mg PO ONCE PRN 1 Days #1 tab PRN Reason: Doxycycline Hyclate 100 mg PO BID 10 Days #20 capsule Home Medications: Buprenorphine HCl [Subutex 8 mg Sublingual Tablet] 8 mg PO Q12 05/31/19 Amoxicillin/Potassium Clav [Augmentin 500-125 Tablet] 1 each PO TID 10 Days #30 tablet 06/05/19 Docusate Sodium [Colace 100 mg Capsule] 100 mg PO BID #60 capsule 06/05/19 Doxycycline Hyclate 100 mg PO BID 10 Days #20 capsule 06/05/19 Fluconazole [Diflucan] 150 mg PO ONCE PRN 1 Days #1 tab 06/05/19 History of Present Illiness History of Present Illness: YULIYA LALA is a 33 year old female with recent 16+4ega demise and delivery on 05/07. She reports that she was doing well until 4 days before admission she began to have increasing abdominal pain and foul smelling discharge. She denies fevers but reports chills and then today abdominal pain is worse and she has been unable to get out of the bed. She is back to her prepregnancy Subutex 8mg BID. Hospital Course Hospital Course: Hospital course was essentially uneventful. By hospital day #2 her leukocytosis had almost resolved. However, on day #2 the patient started having moderately heavy vaginal bleeding which is now subsided. She remained afebrile during her course of antibiotics. She had bacteremia and ECHO was performed and reviewed course with ID who recommended she have continued IV antibiotics and repeat blood cultures. Once repeat blood cultures returned as negative then she would be able to go home with close f/u and with 10 days of antibiotics. Due to her history would not recommend discharge with PICC line in placed. ID agreed with ECHO and IV antiboitics and not to discharge with PICC line. Appreciate their assistance with this patient. No vegetations on ECHO Physical Exam - Physical Exam Vital Signs: Temp Pulse Resp BP Pulse Ox 97.9 F 67 17 110/57 L 99 06/05/19 12:00 06/05/19 12:00 06/05/19 12:00 06/05/19 12:00 06/05/19 12:00 Intake & Output 06/04/19 06/05/19 06/06/19 06:59 06:59 06:59 Intake Total 750 1700 Balance 750 1700 Weight 72.43 kg 74.1 kg General appearance: PRESENT: no acute distress, well-developed, well-nourished Head exam: PRESENT: atraumatic, normocephalic Respiratory exam: PRESENT: clear to auscultation christian, symmetrical, unlabored Cardiovascular exam: PRESENT: RRR. ABSENT: diastolic murmur, rubs, systolic murmur Vascular exam: PRESENT: normal capillary refill GI/Abdominal exam: PRESENT: normal bowel sounds, soft. ABSENT: distended, guarding, mass, organolmegaly, rebound, tenderness Rectal exam: PRESENT: deferred Extremities exam: PRESENT: full ROM. ABSENT: calf tenderness, clubbing, pedal edema Neurological exam: PRESENT: alert, awake, oriented to person, oriented to place, oriented to time, oriented to situation, CN II-XII grossly intact. 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 ABSENT: homicidal ideation, suicidal ideation Results Laboratory Results: WBC 8.9 10^3/uL (4.0-10.5) 06/02/19 07:50 RBC 3.37 10^6/uL (3.72-5.28) L 06/02/19 07:50 Hgb 10.4 g/dL (12.0-15.5) L 06/02/19 07:50 Hct 30.8 % (36.0-47.0) L 06/02/19 07:50 MCV 91 fl (80-97) 06/02/19 07:50 MCH 31.0 pg (27.0-33.4) 06/02/19 07:50 MCHC 33.9 g/dL (32.0-36.0) 06/02/19 07:50 RDW 13.5 % (11.5-14.0) 06/02/19 07:50 Plt Count 264 10^3/uL (150-450) 06/02/19 07:50 Lymph % (Auto) 29.2 % (13-45) 06/02/19 07:50 Mckinley % (Auto) 7.2 % (3-13) 06/02/19 07:50 Eos % (Auto) 5.3 % (0-6) 06/02/19 07:50 Baso % (Auto) 0.5 % (0-2) 06/02/19 07:50 Absolute Neuts (auto) 5.1 10^3/uL (1.7-8.2) 06/02/19 07:50 Absolute Lymphs (auto) 2.6 10^3/uL (0.5-4.7) 06/02/19 07:50 Absolute Monos (auto) 0.6 10^3/uL (0.1-1.4) 06/02/19 07:50 Absolute Eos (auto) 0.5 10^3/uL (0.0-0.6) 06/02/19 07:50 Absolute Basos (auto) 0.0 10^3/uL (0.0-0.2) 06/02/19 07:50 Seg Neutrophils % 57.8 % (42-78) 06/02/19 07:50 Sodium 140.8 mmol/L (137-145) 05/31/19 12:56 Potassium 4.4 mmol/L (3.6-5.0) 05/31/19 12:56 Chloride 106 mmol/L (98-107) 05/31/19 12:56 Carbon Dioxide 27 mmol/L (22-30) 05/31/19 12:56 Anion Gap 8 (5-19) 05/31/19 12:56 BUN 8 mg/dL (7-20) 05/31/19 12:56 Creatinine 0.72 mg/dL (0.52-1.25) 05/31/19 12:56 Est GFR ( Amer) > 60 (>60) 05/31/19 12:56 Est GFR (MDRD) Non-Af > 60 (>60) 05/31/19 12:56 Glucose 79 mg/dL (75-110) 05/31/19 12:56 Lactic Acid 1.9 mmol/L (0.7-2.1) 05/31/19 14:55 Calcium 10.0 mg/dL (8.4-10.2) 05/31/19 12:56 Total Bilirubin 0.3 mg/dL (0.2-1.3) 05/31/19 12:56 Direct Bilirubin 0.0 mg/dL (0.0-0.4) 05/31/19 12:56 Neonat Total Bilirubin Not Reportable 05/31/19 12:56 Neonat Direct Bilirubin Not Reportable 05/31/19 12:56 Neonat Indirect Bili Not Reportable 05/31/19 12:56 AST 19 U/L (14-36) 05/31/19 12:56 ALT 14 U/L (<35) 05/31/19 12:56 Alkaline Phosphatase 61 U/L (38-126) 05/31/19 12:56 Total Protein 7.1 g/dL (6.3-8.2) 05/31/19 12:56 Albumin 4.2 g/dL (3.5-5.0) 05/31/19 12:56 Serum HCG, Qual NEGATIVE (NEGATIVE) 05/31/19 12:56 Beta HCG, Quant 4.25 mIU/mL (0.0-6.15) 05/31/19 12:56 Total Beta HCG NEGATIVE (NEGATIVE) 05/31/19 12:56 Urine Color YELLOW 05/31/19 13:47 Urine Appearance SLIGHTLY-CLOUDY 05/31/19 13:47 Urine pH 5.0 (5.0-9.0) 05/31/19 13:47 Ur Specific Tutor Key 1.010 05/31/19 13:47 Urine Protein NEGATIVE mg/dL (NEGATIVE) 05/31/19 13:47 Urine Glucose (UA) NEGATIVE mg/dL (NEGATIVE) 05/31/19 13:47 Urine Ketones NEGATIVE mg/dL (NEGATIVE) 05/31/19 13:47 Urine Blood LARGE (NEGATIVE) H 05/31/19 13:47 Urine Nitrite NEGATIVE (NEGATIVE) 05/31/19 13:47 Urine Bilirubin NEGATIVE (NEGATIVE) 05/31/19 13:47 Urine Urobilinogen NEGATIVE mg/dL (<2.0) 05/31/19 13:47 Ur Leukocyte Esterase LARGE (NEGATIVE) H 05/31/19 13:47 Urine WBC (Auto) 15 /HPF 05/31/19 13:47 Urine RBC (Auto) 6 /HPF 05/31/19 13:47 Urine Bacteria (Auto) TRACE /HPF 05/31/19 13:47 Squamous Epi Cells Auto 5 /HPF 05/31/19 13:47 Urine Mucus (Auto) FEW /LPF 05/31/19 13:47 Urine Ascorbic Acid NEGATIVE (NEGATIVE) 05/31/19 13:47 Bacteria (Wet Prep) 4+ BACTERIA SEEN 05/31/19 14:16 Trichomonas (Wet Prep) NO TRICHOMONAS SEEN 05/31/19 14:16 Vaginal WBC 3+ WBCS SEEN 05/31/19 14:16 Vaginal RBC 1+ RBCS SEEN 05/31/19 14:16 Vaginal Yeast NO YEAST SEEN 05/31/19 14:16 Chlamydia DNA (PCR) NOT DETECTED (NOT DETECT) 05/31/19 14:16 N.gonorrhoeae DNA (PCR) NOT DETECTED (NOT DETECT) 05/31/19 14:16 Impressions: Abdomen/Pelvis CT 05/31/19 00:00 IMPRESSION: Thickened endometrium. Small right adnexal cyst is almost certainly benign. No additional imaging is required for this. No other significant findings in the abdomen or pelvis. Transvaginal US 05/31/19 12:03 IMPRESSION: The endometrium is thickened and heterogeneous. Cannot exclude retained products of conception. Small complex or hemorrhagic cyst on the right ovary. Guidance Fluoroscopy 06/03/19 00:00 IMPRESSION: Successful placement of a 5 Slovak x 36 cm double-lumen left upper extremity PICC. Interventional Vascular Procedure 06/03/19 00:00 IMPRESSION: Successful placement of a 5 Slovak x 36 cm double-lumen left upper extremity PICC. PICC Line Insertion 06/03/19 13:40 IMPRESSION: Successful placement of a 5 Slovak x 36 cm double-lumen left upper extremity PICC. Plan Plan of Treatment: 1. Discharge home today 2. Prescriptions for doxycycline, augmentin, colace, Diflucan 3. Follow-up in the office on or Thursday for re-evaluation 4. Follow up with [facility] for mental health and medications on Thursday 5. Follow up with Subutex provider as per their instructions. Stroke Is this a Stroke Patient?: No Acute Heart Failure - Is this a Heart Failure Patient?: No
[2019-06-05 18:38] VITALS: BP 108/58
[2019-06-05] MEDS: NORMAL SALINE 10 ML SDV (AFTER EACH USE) IV PRN ×2 (18:54→18:57)
== END 2019-06-05 19:44 | disposition home or self-care (01) | DRG 779 ==
LOC: ER 11:58 → EH 17:50 → 2N 19:35
PROVIDERS: ADMIT Student in an Organized Health Care Education/Training Program; ATTEND Student in an Organized Health Care Education/Training Program
PROC: 02HV33Z Insertion of Infusion Device into Superior Vena Cava, Percutaneous Approach (ICD-10-PCS; principal; 2019-06-03)
PROC: B518ZZA Fluoroscopy of Superior Vena Cava, Guidance (ICD-10-PCS; 2019-06-03)
PROC: B548ZZA Ultrasonography of Superior Vena Cava, Guidance (ICD-10-PCS; 2019-06-03)
DX: O03.5 Genital tract and pelvic infection following complete or unspecified spontaneous abortion (principal); R78.81 Bacteremia; F11.20 Opioid dependence, uncomplicated; B95.5 Unspecified streptococcus as the cause of diseases classified elsewhere; N83.292 Other ovarian cyst, left side
CPT/HCPCS: 36415; 36569; 74177; 76830; 76937; 77001; 80053; 81001; 83605; 84702; 84703; 85025; 87040; 87077; 87150; 87186; 87210; 87491; 87591; 93306; 93976; 94799; 96365; 96366; 96368; 96375; 96376; 99285; J0131; J0571; J0694; J1642; J1885; J2270; J3010; J3490; J7060; J7120

== ENCOUNTER 2019-12-16 20:26 | Emergency (ER) | payer MEDICAID ==
[2019-12-16] MEDS ORDERED: ACETAMINOPHEN 325 MG TABLET PO ONE (23:03)
--- NOTE | 2019-12-16 23:04 | ER Document Report ---
ED Medical Screen (RME) - General Chief Complaint: Vaginal Bleeding Stated Complaint: VAGINAL BLEEDING/ABDOMINAL PAIN Time Seen by Provider: 12/16/19 22:58 Primary Care Provider: CHARLEY HENDRIX MD [Primary Care Provider] - Follow up as needed Mode of Arrival: Ambulatory Information source: Patient Notes: HPI; 34-year-old female presents to the emergency room states she has been vaginal bleeding for the past 5 weeks. States she had a stillbirth back in April and was started on Depro in May. States she has not missed any of her Depo shots. States she is going through approximately 5 tampons a day. States the pain is gotten worse feels bloated. Has been taking Motrin and Aleve without relief. PE: Alert and oriented x3. Mild distress noted. Lungs: Clear to auscultation no rales, rhonchi, wheezes. Heart: Regular rate and rhythm without murmurs, rubs, gallops. Unable to do full abdominal exam in triage. I have greeted and performed a rapid initial assessment of this patient. A comprehensive ED assessment and evaluation of the patient, analysis of test results and completion of the medical decision making process will be conducted by additional ED providers. I have specifically instructed the patient or family members with the patient to immediately return to any nursing staff should anything change in the patient's condition or with their chief complaint. TRAVEL OUTSIDE OF THE [place] IN LAST 30 DAYS: No - Related Data Allergies/Adverse Reactions: No Known Allergies Allergy (Verified 05/31/19 12:01) Past Medical History - Past Medical History Cardiac Medical History: Reports: Hx Heart Murmur Denies: Hx Coronary Artery Disease, Hx Heart Attack, Hx Hypertension Pulmonary Medical History: Denies: Hx Asthma, Hx Bronchitis, Hx COPD, Hx Pneumonia Neurological Medical History: Reports: Hx Migraine. Denies: Hx Cerebrovascular Accident, Hx Seizures Renal/ Medical History: Denies: Hx Peritoneal Dialysis Musculoskeltal Medical History: Denies Hx Arthritis, Reports Hx Musculoskeletal Trauma Psychiatric Medical History: Reports: Hx Depression Past Surgical History: Reports: Hx Oral Surgery - wisdom teeth, Other - history of diagnostic laparoscopy - Immunizations Hx Diphtheria, Pertussis, Tetanus Vaccination: Yes Physical Exam - Vital signs Vitals: Temp Pulse Resp BP Pulse Ox 98.7 F 90 16 126/73 H 99 12/16/19 20:27 12/16/19 20:27 12/16/19 20:27 12/16/19 20:27 12/16/19 20:27 Course - Vital Signs Vital signs: Temp Pulse Resp BP Pulse Ox 98.7 F 90 16 126/73 H 99 12/16/19 20:27 12/16/19 20:27 12/16/19 20:27 12/16/19 20:27 12/16/19 20:27 Doctor's Discharge - Discharge Referrals: CHARLEY HENDRIX MD [Primary Care Provider] - Follow up as needed
--- NOTE | 2019-12-17 00:05 | RADIOLOGY REPORT (SQ) ---
EXAM DESCRIPTION: US PELVIS TRANSVAGINAL COMPLETED DATE/TME: 12/16/2019 23:01 CLINICAL HISTORY: 34 years, Female, vaginal bleeding COMPARISON: 05/31/2019 ultrasound TECHNIQUE: Emergent pelvic ultrasound LIMITATIONS: None. FINDINGS: The uterus measures 7.6 x 4.1 x 5.2 cm. The myometrium is homogenous. The endometrium measures 6 mm. The left ovary is not well seen likely due to its position in the pelvis. The right ovary measures 3 x 3 x 2 cm. Normal flow to the right ovary. Right ovary follicles. No solid adnexal mass. No free fluid IMPRESSION: Left ovary is not well seen. Remainder is unremarkable copyright 2011 [employer]- All Rights Reserved
[2019-12-17 01:13] LABS: APPEARANCE,URINE SLIGHTLY-CLOUDY; BILIRUBIN,URINE NEGATIVE (NEGATIVE); COLOR,URINE YELLOW; GLUCOSE, URINE NEGATIVE (NEGATIVE); KETONES,URINE TRACE mg/dL (NEGATIVE); LEUKOCYTE ESTERASE,URINE NEGATIVE (NEGATIVE); NITRITE,URINE NEGATIVE (NEGATIVE); PROTEIN,URINE NEGATIVE (NEGATIVE); URINE SPECIFIC GRAVITY 1.025
[2019-12-17 01:50] LABS: ABSOLUTE BASOPHILS # (AUTO) 0.1 10^3/uL (0.0-0.2); ABSOLUTE EOSINOPHILS # (AUTO) 0.3 10^3/uL (0.0-0.6); ABSOLUTE LYMPHOCYTES (AUTO) 4.5 10^3/uL (0.5-4.7); ABSOLUTE MONOCYTES (AUTO) 0.6 10^3/uL (0.1-1.4); ABSOLUTE NEUT (AUTO) 5.3 10^3/uL (1.7-8.2); BASOPHILS % (AUTO) 1.2 % (0-2); EOSINOPHILS % (AUTO) 2.7 % (0-6); HEMATOCRIT 40.7 % (36.0-47.0); HEMOGLOBIN 14.1 g/dL (12.0-15.5); MEAN CORPUSCULAR HEMOGLOBIN 31.4 pg (27.0-33.4); MEAN CORPUSCULAR HGB CONC 34.8 g/dL (32.0-36.0); MEAN CORPUSCULAR VOLUME 90 fl (80-97); MONOCYTES % (AUTO) 5.1 % (3-13); PLATELET COUNT 336 10^3/uL (150-450); RED BLOOD COUNT 4.51 10^6/uL (3.72-5.28); RED CELL DISTRIBUTION WIDTH 12.8 % (11.5-14.0); TOTAL CELLS COUNTED % (AUTO) 100 %; WHITE BLOOD COUNT 10.8 10^3/uL (4.0-10.5)
[2019-12-17 02:07] LABS: ALBUMIN 4.8 g/dL (3.5-5.0); ALKALINE PHOSPHATASE 71 U/L (38-126); ANION GAP 11 (5-19); ASPARTATE AMINO TRANSFERASE 26 U/L (14-36); BILIRUBIN,TOTAL 0.4 mg/dL (0.2-1.3); BLOOD UREA NITROGEN 11 mg/dL (7-20); CALCIUM 10.3 mg/dL (8.4-10.2); CARBON DIOXIDE 21 mmol/L (22-30); CHLORIDE 107 mmol/L (98-107); GLUCOSE 88 mg/dL (75-110)
[2019-12-17] MEDS ORDERED: TRANEXAMIC ACID INJ/PF 1,000 MG/10 ML SDV IV ONE (05:04)
--- NOTE | 2019-12-17 05:05 | ER Document Report ---
ED GI/ - General Chief Complaint: Vaginal Bleeding Stated Complaint: VAGINAL BLEEDING/ABDOMINAL PAIN Time Seen by Provider: 12/16/19 22:58 Primary Care Provider: CHARLEY HENDRIX MD [Primary Care Provider] - Follow up in 1 week Mode of Arrival: Ambulatory Notes: Patient is a 34-year-old female that comes emergency department for chief complaint of persistent vaginal bleeding. She states she has been bleeding daily for the past 5 weeks. This is intermittently heavy. She denies dizziness or passing out. She denies severe abdominal pain but she does report feeling bloated and intermittent cramping. She also has been taking frequent Motrin and Aleve and is starting to get a lot of reflux symptoms. Patient states that she had a miscarriage back in April of last year, she started on Depo-Provera in May, she had a follow-up Depo-Provera after this, she is due for Depo-[employer] a later this month and does not want this anymore because of her bleeding. She takes no daily medications. She is sexually active with her significant other. TRAVEL OUTSIDE OF THE [place] IN LAST 30 DAYS: No - Related Data Allergies/Adverse Reactions: No Known Allergies Allergy (Verified 05/31/19 12:01) Past Medical History - General Information source: Patient - Social History Smoking Status: Current Every Day Smoker Frequency of alcohol use: None Drug Abuse: None Lives with: Family Family History: Reviewed & Not Pertinent, Other - Past Medical History Cardiac Medical History: Reports: Hx Heart Murmur Denies: Hx Coronary Artery Disease, Hx Heart Attack, Hx Hypertension Pulmonary Medical History: Denies: Hx Asthma, Hx Bronchitis, Hx COPD, Hx Pneumonia Neurological Medical History: Reports: Hx Migraine. Denies: Hx Cerebrovascular Accident, Hx Seizures Renal/ Medical History: Denies: Hx Peritoneal Dialysis Musculoskeletal Medical History: Denies Hx Arthritis, Reports Hx Musculoskeletal Trauma Psychiatric Medical History: Reports: Hx Depression Past Surgical History: Reports: Hx Oral Surgery - wisdom teeth, Other - history of diagnostic laparoscopy - Immunizations Hx Diphtheria, Pertussis, Tetanus Vaccination: Yes Review of Systems - Review of Systems Constitutional: No symptoms reported EENT: No symptoms reported Cardiovascular: No symptoms reported Respiratory: No symptoms reported Gastrointestinal: See HPI Genitourinary: See HPI Female Genitourinary: See HPI Musculoskeletal: No symptoms reported Skin: No symptoms reported Hematologic/Lymphatic: No symptoms reported Neurological/Psychological: No symptoms reported Physical Exam - Vital signs Vitals: Temp Pulse Resp BP Pulse Ox 98.7 F 90 16 126/73 H 99 12/16/19 20:27 12/16/19 20:27 12/16/19 20:27 12/16/19 20:27 12/16/19 20:27 - Notes Notes: GENERAL: Alert, interacts well. No acute distress. HEAD: Normocephalic, atraumatic. EYES: Pupils equal, round, and reactive to light. Extraocular movements intact. ENT: Oral mucosa moist, tongue midline. Oropharynx unremarkable. Airway patent. NECK: Full range of motion. Supple. Trachea midline. No lymphadenopathy. LUNGS: Clear to auscultation bilaterally, no wheezes, rales, or rhonchi. No respiratory distress. Non-tender chest wall. HEART: Regular rate and rhythm. No murmur ABDOMEN: There is questionable minimal distention of the lower abdomen/pelvic area. There is mild generalized tenderness. No guarding or significant distention. Unremarkable otherwise. EXTREMITIES: Moves all 4 extremities spontaneously. No edema, normal radial and dorsalis pedis pulses bilaterally. No cyanosis. BACK: no cervical, thoracic, lumbar midline tenderness. No saddle anesthesia, normal distal neurovascular exam. Moves all extremities in full range of motion. NEUROLOGICAL: Alert and oriented x3. Normal speech. Cranial nerves II through XII grossly intact. Strength 5/5 in all extremities. PSYCH: Normal affect, normal mood. SKIN: Warm, dry, normal turgor. No rashes or lesions noted. Course - Re-evaluation Re-evalutation: CBC unremarkable including hemoglobin, chemistry unremarkable, urinalysis showing elevated specific gravity but otherwise unremarkable, test is negative. Transvaginal ultrasound showing thickened endometrial lining but no acute or concerning findings. Patient with no current heavy bleeding on my exam. Abdomen is soft and benign. Patient is frustrated with 5 weeks of daily bleeding, she wants to be off Depo-Provera, she is requesting oral contraceptive. Discussed options. Because she is not quite due to be on Depo- Provera again we will instead give her TXA here to help with her symptoms, I did provide her with a prescription of the high-dose control for bleeding if she continues to bleed past her date when she is supposed to get her Depo- Provera, she is to follow-up closely with [facility] in addition to this. Patient has no dizziness, vital signs are unremarkable, she is well-appearing. Patient has been using anti-inflammatories heavily and she is starting to develop reflux, she was treated for this and precautions in regards to this as well. Patient states appreciation and agreement. Stable and well-appearing at time of discharge. - Vital Signs Vital signs: Temp Pulse Resp BP Pulse Ox 98.4 F 76 16 126/69 H 100 12/17/19 06:45 12/17/19 06:45 12/17/19 06:45 12/17/19 06:45 12/17/19 06:45 - Laboratory Result Diagrams: 12/17/19 01:36 12/17/19 01:36 Laboratory results interpreted by me: 12/17/19 12/17/19 12/17/19 00:41 01:36 01:36 WBC 10.8 H Carbon Dioxide 21 L Calcium 10.3 H Urine Ketones TRACE H Urine Blood SMALL H Urine Urobilinogen 2.0 H Urine Ascorbic Acid 40 H Discharge - Discharge Clinical Impression: Menometrorrhagia Condition: Stable Disposition: HOME, SELF-CARE Additional Instructions: You have been treated tonight for your vaginal bleeding. Because of your breakthrough bleeding on Depo-Provera it is reasonable to stop as you have decided. You have been provided with a prescription of oral contraceptive which can help stop bleeding, I recommend that you wait until you are date for Depo- Provera to be renewed and if you continue to have bleeding you can start this medication and follow-up with [facility]. Because of your reflux symptoms I recommend that you only take the ibuprofen and naproxen with food if needed for pain, avoid this if possible, take the Carafate and Pepcid as prescribed. Avoid caffeine, alcohol, smoking, spicy food as well. Return if you worsen including severe worsening pain, heavier bleeding, passing out, or any other concerning symptoms. Prescriptions: Sucralfate [Carafate 1 gm Tablet] 1 gm PO QID #20 tablet Famotidine [Pepcid 20 mg Tablet] 20 mg PO BID #14 tablet Norgestimate-Ethinyl Estradiol [Sprintec 28 Day Tablet] 1 each PO ASDIR PRN #56 tablet PRN Reason: Forms: Return to Work, Treatment of Relative/Child Referrals: CHARLEY HENDRIX MD [Primary Care Provider] - Follow up in 1 week
[2019-12-17] MEDS ORDERED: KETOROLAC TROMETHAMINE INJ/PF 30 MG/1 ML SDV IV ONE (06:33)
[2019-12-17 06:47] VITALS: BP 126/69
== END 2019-12-17 06:45 | disposition home or self-care (01) ==
LOC: ER 20:26
DX: N92.1 Excessive and frequent menstruation with irregular cycle (principal); R10.9 Unspecified abdominal pain; F17.200 Nicotine dependence, unspecified, uncomplicated
CPT/HCPCS: 99284; 96374; 36415; 84703; 85025; 80053; 81001; 76830; 93976; J1885; J3490

== ENCOUNTER 2020-05-30 13:53 | Emergency (ER) | payer MEDICAID ==
--- NOTE | 2020-05-30 14:15 | ER Document Report ---
ED Medical Screen (RME) - General Chief Complaint: Abdominal Pain Stated Complaint: ABDOMINAL PAIN Time Seen by Provider: 05/30/20 14:08 Primary Care Provider: CHARLEY HENDRIX MD [Primary Care Provider] - Follow up as needed Mode of Arrival: Ambulatory Information source: Patient TRAVEL OUTSIDE OF THE [place] IN LAST 30 DAYS: No - HPI Patient complains to provider of: Lower abdominal pain Notes: 05/30/20 14:14 Patient with complaints of lower abdominal pain. She states pain started about 2 days ago. Pain is worse in the lower abdomen but she states that her whole abdomen hurts. She denies any vaginal discharge. She states her last normal menstrual cycle was April 15. She has not taken a test. She is sexually active. She has had laparoscopic pick evaluation in the past but no other abdominal surgeries. Exam: Nontoxic. Patient does appear to be uncomfortable. Lungs clear thr oughout. Heart sounds normal. Lower abdominal tenderness on limited triage abdominal exam. An initial examination was made on the patient as part of the triage process, and it was determined a more comprehensive evaluation was necessary. Initial orders were placed and patient was transferred to another provider in the ED who assumed care and finished evaluation and plan. - Related Data Allergies/Adverse Reactions: No Known Allergies Allergy (Verified 05/31/19 12:01) Past Medical History - Past Medical History Cardiac Medical History: Reports: Hx Heart Murmur Denies: Hx Coronary Artery Disease, Hx Heart Attack, Hx Hypertension Pulmonary Medical History: Denies: Hx Asthma, Hx Bronchitis, Hx COPD, Hx Pneumonia Neurological Medical History: Reports: Hx Migraine. Denies: Hx Cerebrovascular Accident, Hx Seizures Renal/ Medical History: Denies: Hx Peritoneal Dialysis Musculoskeltal Medical History: Denies Hx Arthritis, Reports Hx Musculoskeletal Trauma Psychiatric Medical History: Reports: Hx Depression Past Surgical History: Reports: Hx Oral Surgery - wisdom teeth, Other - history of diagnostic laparoscopy - Immunizations Hx Diphtheria, Pertussis, Tetanus Vaccination: Yes Physical Exam - Vital signs Vitals: Temp Pulse Resp BP Pulse Ox 99.2 F 96 16 121/65 100 05/30/20 13:58 05/30/20 13:58 05/30/20 13:58 05/30/20 13:58 05/30/20 13:58 Course - Vital Signs Vital signs: Temp Pulse Resp BP Pulse Ox 99.2 F 96 16 121/65 100 05/30/20 13:58 05/30/20 13:58 05/30/20 13:58 05/30/20 13:58 05/30/20 13:58 Doctor's Discharge - Discharge Referrals: CHARLEY HENDRIX MD [Primary Care Provider] - Follow up as needed
[2020-05-30 14:35] LABS: ABSOLUTE BASOPHILS # (AUTO) 0.1 10^3/uL (0.0-0.2); ABSOLUTE EOSINOPHILS # (AUTO) 0.3 10^3/uL (0.0-0.6); ABSOLUTE LYMPHOCYTES (AUTO) 2.7 10^3/uL (0.5-4.7); ABSOLUTE MONOCYTES (AUTO) 0.5 10^3/uL (0.1-1.4); ABSOLUTE NEUT (AUTO) 4.5 10^3/uL (1.7-8.2); BASOPHILS % (AUTO) 0.8 % (0-2); HEMATOCRIT 40.8 % (36.0-47.0); HEMOGLOBIN 13.9 g/dL (12.0-15.5); LYMPHOCYTES % (AUTO) 33.4 % (13-45); MEAN CORPUSCULAR VOLUME 91 fl (80-97); MONOCYTES % (AUTO) 6.6 % (3-13); PLATELET COUNT 294 10^3/uL (150-450); RED BLOOD COUNT 4.47 10^6/uL (3.72-5.28); RED CELL DISTRIBUTION WIDTH 13.6 % (11.5-14.0); SEGMENTED NEUTROPHILS % (AUTO) 55.2 % (42-78); TOTAL CELLS COUNTED % (AUTO) 100 %; WHITE BLOOD COUNT 8.2 10^3/uL (4.0-10.5)
[2020-05-30 14:55] LABS: ALBUMIN 4.3 g/dL (3.5-5.0); ALKALINE PHOSPHATASE 67 U/L (38-126); ASPARTATE AMINO TRANSFERASE 23 U/L (14-36); BILIRUBIN,DIRECT 0.2 mg/dL (0.0-0.4); BILIRUBIN,TOTAL 0.3 mg/dL (0.2-1.3); BLOOD UREA NITROGEN 13 mg/dL (7-20); GLUCOSE 100 mg/dL (75-110); POTASSIUM 4.4 mmol/L (3.6-5.0); TOTAL PROTEIN 7.3 g/dL (6.3-8.2)
[2020-05-30 15:00] LABS: CARBON DIOXIDE 27 mmol/L (22-30); CHLORIDE 105 mmol/L (98-107)
[2020-05-30 15:08] LABS: ANION GAP 4 (5-19)
[2020-05-30] MEDS ORDERED: NORMAL SALINE 1000 ML 1,000 ML IV ONE (15:30)
--- NOTE | 2020-05-30 15:32 | ER Document Report ---
ED GI/ - General Chief Complaint: Abdominal Pain Stated Complaint: ABDOMINAL PAIN Time Seen by Provider: 05/30/20 14:08 Primary Care Provider: CHARLEY HENDRIX MD [ACTIVE STAFF] - Follow up as needed Mode of Arrival: Ambulatory Information source: Patient Notes: Patient presents complaining of lower abdominal pain for the past 2 days that migrates to the right lower quadrant. Patient reports that she does have generalized abdominal tenderness but worse to the lower pelvic area. Patient denies any nausea vomiting or diarrhea. Patient denies any urinary symptoms. Patient denies any vaginal bleeding or discharge. Patient reports a history of previous diagnostic laparoscopy for evaluation of her endometriosis but states that she has not had any other problems with her endometriosis since that procedure. TRAVEL OUTSIDE OF THE [place] IN LAST 30 DAYS: No - HPI Patient complains to provider of: Pelvic pain Onset: Other - 2 days Timing/Duration: Persistent Quality of pain: Sharp Pain Level: 5 Location: RLQ, Pelvis Vaginal bleeding (Compared to normal period): None Sexual history: Active, Unprotected intercourse Associated symptoms: Painful intercourse. 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 Denies: Hx Cerebrovascular Accident, Hx Seizures Renal/ Medical History: Denies: Hx Peritoneal Dialysis Musculoskeletal Medical History: Denies Hx Arthritis, Reports Hx Musculoskeletal Trauma Psychiatric Medical History: Reports: Hx Depression Past Surgical History: Reports: Hx Oral Surgery - wisdom teeth, Other - history of diagnostic laparoscopy - Immunizations Hx Diphtheria, Pertussis, Tetanus Vaccination: Yes Review of Systems - Review of Systems Constitutional: No symptoms reported. denies: Fever, Recent illness EENT: No symptoms reported Cardiovascular: No symptoms reported Respiratory: No symptoms reported Gastrointestinal: Abdominal pain. denies: Diarrhea, Nausea, Vomiting Genitourinary: No symptoms reported. denies: Dysuria, Flank pain Female Genitourinary: Painful intercourse. denies: Vaginal discharge Musculoskeletal: No symptoms reported. denies: Back pain Skin: No symptoms reported Hematologic/Lymphatic: No symptoms reported Neurological/Psychological: No symptoms reported Physical Exam - Vital signs Vitals: Temp Pulse Resp BP Pulse Ox 99.2 F 96 16 121/65 100 05/30/20 13:58 05/30/20 13:58 05/30/20 13:58 05/30/20 13:58 05/30/20 13:58 - General General appearance: Appears well, Alert In distress: None - HEENT Head: Normocephalic Eyes: Normal Conjunctiva: Normal Nasal: Normal Mouth/Lips: Normal Mucous membranes: Normal Neck: Normal, Supple. No: Lymphadenopathy - Respiratory Respiratory status: No respiratory distress Chest status: Nontender Breath sounds: Normal Chest palpation: Normal - Cardiovascular Rhythm: Regular Heart sounds: S1 appreciated, S2 appreciated - Abdominal Inspection: Normal Distension: No distension Bowel sounds: Normal Tenderness: Tender - Diffuse abdominal tenderness, worse to lower abdomen, Guarding Organomegaly: No organomegaly - Genitourinary External exam: Normal Speculum exam: Cervix closed, Vaginal discharge Vaginal bleeding: None Bimanuel exam: Cervical motion tender. No: Adnexal tenderness Notes: GENTRY Carlson as standby - Back Back: Normal, Nontender. No: CVA tenderness - Extremities General upper extremity: Normal inspection, Normal ROM General lower extremity: Normal inspection, Normal ROM - Neurological Neuro grossly intact: Yes Cognition: Normal Heri Coma Scale Eye Opening: Spontaneous [place] Coma Scale Verbal: Oriented [place] Coma Scale Motor: Obeys Commands [place] Coma Scale Total: 15 - Psychological Associated symptoms: Normal affect, Normal mood - Skin Skin Temperature: Warm Skin Moisture: Dry Skin Color: Normal Course - Re-evaluation Re-evalutation: 05/30/20 19:13 Patient without any acute abnormality on diagnostic evaluation. Patient with no concern for appendicitis or obstructive uropathy. Patient with cervical motion tenderness worrisome for PID. Patient nontoxic in appearance at this time. Will treat with anti-inflammatories and antibiotics as patient is currently on Suboxone. Patient encouraged to follow-up with primary doctor for a recheck. - Vital Signs Vital signs: Temp Pulse Resp BP Pulse Ox 99.2 F 96 16 121/65 100 05/30/20 13:58 05/30/20 13:58 05/30/20 13:58 05/30/20 13:58 05/30/20 13:58 - Laboratory Results Result Diagrams: 05/30/20 14:22 05/30/20 14:22 Laboratory Results Interpreted: 05/30/20 14:22 Sodium 135.8 L Anion Gap 4 L 05/30/20 19:13 Labs- All tests 24 hr 05/30/20 05/30/20 05/30/20 14:22 14:22 14:22 WBC 8.2 RBC 4.47 Hgb 13.9 Hct 40.8 MCV 91 MCH 31.0 MCHC 34.0 RDW 13.6 Plt Count 294 Lymph % (Auto) 33.4 Norton % (Auto) 6.6 Eos % (Auto) 4.0 Baso % (Auto) 0.8 Absolute Neuts (auto) 4.5 Absolute Lymphs (auto) 2.7 Absolute Monos (auto) 0.5 Absolute Eos (auto) 0.3 Absolute Basos (auto) 0.1 Seg Neutrophils % 55.2 Sodium 135.8 L Potassium 4.4 Chloride 105 Carbon Dioxide 27 Anion Gap 4 L BUN 13 Creatinine 0.74 Est GFR ( Amer) > 60 Est GFR (MDRD) Non-Af > 60 Glucose 100 Calcium 10.0 Total Bilirubin 0.3 Direct Bilirubin 0.2 Neonat Total Bilirubin Not Reportable Neonat Direct Bilirubin Not Reportable Neonat Indirect Bili Not Reportable AST 23 ALT 17 Alkaline Phosphatase 67 Total Protein 7.3 Albumin 4.3 Lipase 51.0 Serum HCG, Qual NEGATIVE Epi Cells (Wet Prep) Bacteria (Wet Prep) Trichomonas (Wet Prep) Vaginal WBC Vaginal RBC Vaginal Yeast Chlamydia DNA (PCR) N.gonorrhoeae DNA (PCR) 05/30/20 05/30/20 16:30 16:30 WBC RBC Hgb Hct MCV MCH MCHC RDW Plt Count Lymph % (Auto) Norton % (Auto) Eos % (Auto) Baso % (Auto) Absolute Neuts (auto) Absolute Lymphs (auto) Absolute Monos (auto) Absolute Eos (auto) Absolute Basos (auto) Seg Neutrophils % Sodium Potassium Chloride Carbon Dioxide Anion Gap BUN Creatinine Est GFR ( Amer) Est GFR (MDRD) Non-Af Glucose Calcium Total Bilirubin Direct Bilirubin Neonat Total Bilirubin Neonat Direct Bilirubin Neonat Indirect Bili AST ALT Alkaline Phosphatase Total Protein Albumin Lipase Serum HCG, Qual Epi Cells (Wet Prep) 3+ EPITHELIALS SEEN Bacteria (Wet Prep) 4+ BACTERIA SEEN Trichomonas (Wet Prep) NO TRICHOMONAS SEEN Vaginal WBC 2+ WBCS SEEN Vaginal RBC RARE RBCS SEEN Vaginal Yeast NO YEAST SEEN Chlamydia DNA (PCR) NOT DETECTED N.gonorrhoeae DNA (PCR) NOT DETECTED Critical Laboratory Results Reviewed: No Critical Results - Radiology Results Critical Radiology Results Reviewed: No Critical Results Discharge - Discharge Clinical Impression: PID (acute pelvic inflammatory disease), Pelvic pain Condition: Stable Disposition: HOME, SELF-CARE Instructions: Abdominal Pain ([facility]), Doxycycline ([facility]), Metronidazole ([facility]), Pelvic Inflammatory Disease ([facility]), Rocephin ([facility]) Additional Instructions: Return immediately for any new or worsening symptoms Followup with your primary care provider, call tomorrow to make a followup appointment Prescriptions: Doxycycline Hyclate 100 mg PO BID #28 tablet. Metronidazole [Flagyl 500 mg Tablet] 500 mg PO BID #28 tablet Naproxen [Naprosyn 250 Nmg Tablet] 1 tab PO BID #14 tablet Forms: Return to Work Referrals: CHARLEY HENDRIX MD [ACTIVE STAFF] - Follow up as needed
[2020-05-30] MEDS ORDERED: MORPHINE SULFATE 10 MG/ML INJ IV ONE (16:38)
[2020-05-30 16:53] LABS: BACTERIA (WET MOUNT) 4+ BACTERIA SEEN; T.VAGINALIS (WET MOUNT) NO TRICHOMONAS SEEN; WBCS (WET MOUNT) 2+ WBCS SEEN; YEAST (WET MOUNT) NO YEAST SEEN
[2020-05-30 16:54] LABS: EPITHELIALS (WET MOUNT) 3+ EPITHELIALS SEEN
[2020-05-30 16:55] LABS: RBCS (WET MOUNT) RARE RBCS SEEN
--- NOTE | 2020-05-30 17:38 | RADIOLOGY REPORT (SQ) ---
EXAM DESCRIPTION: U/S NON OB PEL W/DOPPLER IMAGES COMPLETED DATE/TIME: 05/30/2020 4:08 pm REASON FOR STUDY: pelvic pain. Unknown LMP. COMPARISON: None. TECHNIQUE: Dynamic and static grayscale images acquired of the pelvis via transabdominal approach an d recorded on PACS. Additional selected color Doppler and spectral images recorded. LIMITATIONS: None. FINDINGS: UTERUS: Contour normal. No mass. ENDOMETRIAL STRIPE: No focal or generalized thickening. No masses. CERVIX: No nabothian cysts. RIGHT OVARY AND DOPPLER: Normal size. No worrisome masses. Normal arterial vascular flow without evid ence for torsion. LEFT OVARY AND DOPPLER: Normal size. No worrisome masses. Normal arterial vascular flow without evide nce for torsion. FREE FLUID: Trace free fluid in the pelvic cul-de-sac. OTHER: No other significant finding. MEASUREMENTS: UTERUS: 9.4 x 5.2 x 4.7 cm ENDOMETRIAL STRIPE: 9 mm RIGHT OVARY: 2.8 x 1.5 x 1.4 cm LEFT OVARY: 3.4 x 2.6 x 1.7 cm IMPRESSION: Normal sonographic appearance of the uterus and ovaries. Trace free fluid in the pelvic cul-de-sac which is within normal limits for physiologic fluid. TECHNICAL DOCUMENTATION: JOB ID: [id number] 2010 [employer]- All Rights Reserved Reading location - IP/workstation name: [email or web address]
[2020-05-30 18:26] LABS: CHLAM PCR NOT DETECTED (NOT DETECT)
--- NOTE | 2020-05-30 18:26 | RADIOLOGY REPORT (SQ) ---
EXAM DESCRIPTION: CT ABD/PELVIS WITH IV ORAL IMAGES COMPLETED DATE/TIME: 05/30/2020 5:05 pm REASON FOR STUDY: abd pain, RLQ pain. Vaginal pain. COMPARISON: Pelvic ultrasound same date. CT abdomen and pelvis, 05/31/2019 TECHNIQUE: CT scan of the abdomen and pelvis performed using helical scanning technique with dynamic intravenous contrast injection. No oral contrast. Images reviewed with lung, soft tissue, and bone windows. Reconstructed coronal and sagittal MPR images reviewed. Delayed images for evaluation of the urinary system also acquired. All images stored on PACS. All CT scanners at this facility use dose modulation, iterative reconstruction, and/or weight based d osing when appropriate to reduce radiation dose to as low as reasonably achievable (ALARA). [facility]: Dose Right [facility]: CareDose [facility]: Dose Right [facility]: Teradose 4D [facility]: Kato CONTRAST TYPE AND DOSE: contrast/concentration: Isovue 350.00 mmol/ml; Total Contrast Delivered: 75. 0 ml; Total Saline Delivered: 27.3 ml RENAL FUNCTION: GFR > 60. RADIATION DOSE: CT Rad equipment meets quality standard of care and radiation dose reduction techniq ues were employed. CTDIvol: 6.7 - 9.3 mGy. DLP: 942 mGy-cm.. LIMITATIONS: None. FINDINGS: LOWER CHEST: No significant findings. No nodules or infiltrates. LIVER: Normal size. No masses. No dilated ducts. SPLEEN: Normal size. No focal lesions. PANCREAS: No masses. No significant calcifications. No adjacent inflammation or peripancreatic fluid collections. Pancreatic duct not dilated. GALLBLADDER: No identified stones by CT criteria. No inflammatory changes to suggest cholecystitis. ADRENAL GLANDS: No significant masses or asymmetry. RIGHT KIDNEY AND URETER: No solid masses. No significant calcifications. No hydronephrosis or hyd roureter. LEFT KIDNEY AND URETER: No solid masses. No significant calcifications. No hydronephrosis or hydr oureter. AORTA AND VESSELS: No aneurysm. No dissection. Renal arteries, SMA, celiac without stenosis. RETROPERITONEUM: No retroperitoneal adenopathy, hemorrhage or masses. BOWEL AND PERITONEAL CAVITY: No masses or inflammatory changes. No free fluid or peritoneal masses. APPENDIX: Normal. PELVIS: Uterus and ovaries have normal size. There is a corpus luteum follicle at the right ovary. Trace fluid in the right adnexa. No layering free fluid. No pelvic adenopathy. Urinary bladder has normal contour. ABDOMINAL WALL: No masses. No hernias. BONES: No significant or acute findings. OTHER: No other significant finding. IMPRESSION: No acute abnormality in the abdomen or pelvis to explain the patient's symptoms. Append ix is normal. Right corpus luteum follicle with trace free fluid in the pelvic cul-de-sac. TECHNICAL DOCUMENTATION: JOB ID: [id number] Quality ID # [id number]: Final reports with documentation of one or more dose reduction techniques (e.g., Au tomated exposure control, adjustment of the mA and/or kV according to patient size, use of iterative reconstruction technique) 2010 [employer]- All Rights Reserved Reading location - IP/workstation name: [email or web address]
[2020-05-30] MEDS ORDERED: CEFTRIAXONE 1 GM/D5W RTU 1 GM/50 ML RTUPB IV ONE (19:09)
[2020-05-30] MEDS ORDERED: DOXYCYCLINE HYCLATE 100 MG TABLET PO ONE (19:09)
[2020-05-30 19:50] LABS: APPEARANCE,URINE CLEAR; BILIRUBIN,URINE NEGATIVE (NEGATIVE); COLOR,URINE STRAW; GLUCOSE, URINE NEGATIVE (NEGATIVE); KETONES,URINE NEGATIVE (NEGATIVE); LEUKOCYTE ESTERASE,URINE NEGATIVE (NEGATIVE); NITRITE,URINE NEGATIVE (NEGATIVE); PROTEIN,URINE NEGATIVE (NEGATIVE); URINE SPECIFIC GRAVITY 1.038; UROBILINOGEN,URINE NEGATIVE mg/dL (<2.0)
[2020-05-30] MEDS ORDERED: METRONIDAZOLE 500 MG TABLET PO ONE (20:08)
[2020-05-30 20:42] VITALS: BP 132/79
== END 2020-05-30 20:40 | disposition home or self-care (01) ==
LOC: ER 13:53
DX: N73.9 Female pelvic inflammatory disease, unspecified (principal); R10.2 Pelvic and perineal pain; R10.31 Right lower quadrant pain; N94.10 Unspecified dyspareunia; R10.817 Generalized abdominal tenderness; F17.200 Nicotine dependence, unspecified, uncomplicated; Z79.899 Other long term (current) drug therapy
CPT/HCPCS: 99285; 96361; 96375; 96365; 36415; 87210; 83690; 84703; 85025; 80053; 81001; 87491; 87591; 76856; 93976; 74177; J3490 ×2; J2270; J7030; J0696